=== PATIENT | female | born 1945 | race Caucasian/White ===

== ENCOUNTER 2020-08-21 15:23 | Outpatient (REF) | payer MEDICARE, OTHER, SELFPAY ==
--- NOTE | 2020-08-21 15:36 | US_ITS ---
EXAMINATION: US VENOUS ULTRASOUND WITH DOPPLER LOWER EXTREMITY, RIGHT CLINICAL INFORMATION: Pain right lower extremity near medial knee. Assess for occult DVT. COMPARISON: None TECHNIQUE: Ultrasound of the deep veins is performed from the hip to the calf with compression sonography and color and pulse Doppler assessment. Spectral analysis with color-flow imaging is performed. FINDINGS: There is no deep venous thrombosis. There is normal venous compression and respiratory variation and augmented flow involving the deep veins. The visualized common femoral vein, superficial femoral vein, profunda femoral vein, popliteal vein, and visualized mid calf peroneal and posterior tibial venous segments show no evidence of deep venous thrombosis. There are thrombosed varicose veins with no compressibility or color flow at site of patient's pain medial knee consistent with superficial thrombophlebitis. No visible popliteal fossa cyst. IMPRESSION: 1. Superficial thrombophlebitis involving varicose veins at level medial right knee. 2. No DVT demonstrated in the right lower extremity.
== END 2020-08-21 15:24 | disposition home or self-care (01) ==
LOC: HO.HMGCX 15:23
PROVIDERS: PCP Internal Medicine; Visit Provider Internal Medicine
DX: M79.89 Other specified soft tissue disorders (principal); M79.604 Pain in right leg; I80.01 Phlebitis and thrombophlebitis of superficial vessels of right lower extremity
CPT/HCPCS: 93971

== ENCOUNTER 2020-12-21 07:53 | Outpatient (REF) | payer MEDICARE, OTHER, SELFPAY ==
[2020-12-21 12:38] LABS: Alanine Aminotransferase 12 U/L (0-31); Albumin Level 3.7 g/dL (3.5-5.0); Alkaline Phosphatase 76 U/L (39-117); Anion Gap 10 (12-20); Aspartate Amino Transferase 17 U/L (5-31); Bilirubin Total 0.3 mg/dL (0.0-1.0); Blood Urea Nitrogen 28 mg/dL (9-16); Calcium 8.4 mg/dL (8.4-10.2); Carbon Dioxide 26 mmol/L (22-29); Chloride 106 mmol/L (96-108); Estimated Glomerular Filt Rate 43; Glucose Fasting 78 mg/dL (60-99); Iron 31 mcg/dL (30-160); Percent Iron Saturation 10 % (15-50); Potassium 5.2 mmol/L (3.3-5.1); Sodium 137 mmol/L (135-145); Total Iron Binding Capacity 323 mcg/dL (228-428); Total Protein 6.5 g/dL (6.5-8.0); Unsaturated Iron Binding 292 ug/dL
== END 2020-12-21 07:54 | disposition home or self-care (01) ==
LOC: HO.HMGCLDS 07:53
PROVIDERS: PCP Internal Medicine; Visit Provider Internal Medicine
DX: I12.9 Hypertensive chronic kidney disease with stage 1 through stage 4 chronic kidney disease, or unspecified chronic kidney disease (principal); N18.30 Chronic kidney disease, stage 3 unspecified; M81.0 Age-related osteoporosis without current pathological fracture; E78.5 Hyperlipidemia, unspecified; D64.9 Anemia, unspecified
CPT/HCPCS: 36415; 80053; 83540

== ENCOUNTER 2021-04-29 07:29 | Outpatient (REF) | payer MEDICARE, OTHER, SELFPAY ==
[2021-04-29 11:18] LABS: MANUAL DIFF FLAG NO
[2021-04-29 11:26] LABS: Basophils Absolute Auto 0.1 X10*3/uL (0.0-0.2); Basophils Percent Auto 0.9 % (0-2); Eosinophils Absolute Auto 0.5 X10*3/uL (0.0-0.4); Eosinophils Percent Auto 6.3 % (0-4); Hematocrit 35.2 % (37-47); Hemoglobin 10.5 g/dl (12.0-16.0); Imm Gran Abs Auto 0.03 X10*3/uL (0.00-0.03); Imm Gran Pct Auto 0.4 % (0.0-0.4); Lymphocytes Percent Auto 13.6 % (20-40); Mean Corpuscular HGB Conc 29.8 g/dl (31.0-35.0); Mean Corpuscular Hemoglobin 25.9 pg (27.0-33.0); Mean Corpuscular Volume 86.9 fL (80-98); Mean Platelet Volume 9.6 fL (9.4-12.3); Monocytes Absolute Auto 0.7 X10*3/uL (0.1-1.2); Monocytes Percent Auto 8.9 % (2-11); Neutrophils Absolute Auto 5.2 X10*3/uL (2.0-8.3); Neutrophils Percent Auto 69.9 % (45-73); Platelet Count 177 X10*3/uL (160-400); Red Blood Count 4.05 X10*6/uL (4.20-5.50); Red Cell Distribution Width 16.6 % (11.0-16.0); White Blood Count 7.4 X10*3/uL (4.8-10.8)
[2021-04-29 12:02] LABS: Vitamin D 25-OH Total 29.2 ng/mL (>30)
[2021-04-29 12:04] LABS: Alanine Aminotransferase 11 U/L (0-31); Albumin Level 3.9 g/dL (3.5-5.0); Alkaline Phosphatase 52 U/L (39-117); Anion Gap 13 (12-20); Aspartate Amino Transferase 16 U/L (5-31); Bilirubin Total 0.6 mg/dL (0.0-1.0); Blood Urea Nitrogen 45 mg/dL (9-16); Calcium 8.6 mg/dL (8.4-10.2); Carbon Dioxide 25 mmol/L (22-29); Chloride 108 mmol/L (96-108); Cholesterol 129 mg/dL; Estimated Glomerular Filt Rate 35; Glucose Fasting 74 mg/dL (60-99); HDL Cholesterol 52 mg/dL; Iron 51 mcg/dL (30-160); LDL Cholesterol Calculated 51 mg/dl; Magnesium 1.9 mg/dL (1.6-2.6); Percent Iron Saturation 14 % (15-50); Potassium 5.3 mmol/L (3.3-5.1); Sodium 141 mmol/L (135-145); Total Iron Binding Capacity 373 mcg/dL (228-428); Total Protein 6.6 g/dL (6.5-8.0); Triglycerides 133 mg/dL; Unsaturated Iron Binding 322 ug/dL
== END 2021-04-29 07:30 | disposition home or self-care (01) ==
LOC: HO.HMGCLDS 07:29
PROVIDERS: PCP Internal Medicine; Visit Provider Internal Medicine
DX: I12.9 Hypertensive chronic kidney disease with stage 1 through stage 4 chronic kidney disease, or unspecified chronic kidney disease (principal); N18.30 Chronic kidney disease, stage 3 unspecified; D64.9 Anemia, unspecified; E55.9 Vitamin D deficiency, unspecified; E78.5 Hyperlipidemia, unspecified; M81.0 Age-related osteoporosis without current pathological fracture; R63.4 Abnormal weight loss
CPT/HCPCS: 36415; 80053; 80061; 82306; 83540; 83735; 84443; 85025

== ENCOUNTER 2021-05-07 11:34 | Outpatient (REF) | payer MEDICARE, OTHER, SELFPAY ==
[2021-05-07 14:40] LABS: Anion Gap 14 (12-20); Carbon Dioxide 25 mmol/L (22-29); Chloride 104 mmol/L (96-108); Sodium 138 mmol/L (135-145)
== END 2021-05-07 11:35 | disposition home or self-care (01) ==
LOC: HO.HMGCLDS 11:34
PROVIDERS: Nurse Practitioner Family; PCP Internal Medicine; Visit Provider Internal Medicine
DX: E87.5 Hyperkalemia (principal)
CPT/HCPCS: 36415; 80051

== ENCOUNTER 2021-08-12 12:28 | Outpatient (REF) | payer MEDICARE, OTHER, SELFPAY ==
[2021-08-12 14:37] LABS: Anion Gap 14 (12-20); Blood Urea Nitrogen 25 mg/dL (9-16); Calcium 9.2 mg/dL (8.4-10.2); Carbon Dioxide 22 mmol/L (22-29); Chloride 108 mmol/L (96-108); Estimated Glomerular Filt Rate 44; Glucose Random 92 mg/dL (60-115); Potassium 5.1 mmol/L (3.3-5.1); Sodium 139 mmol/L (135-145)
== END 2021-08-12 12:29 | disposition home or self-care (01) ==
LOC: HO.HMGCLDS 12:28
PROVIDERS: PCP Internal Medicine; Visit Provider Internal Medicine
DX: E87.5 Hyperkalemia (principal); I10 Essential (primary) hypertension
CPT/HCPCS: 36415; 80048

== ENCOUNTER 2022-07-04 09:14 | Outpatient (REF) | payer MEDICARE, SELFPAY ==
[2022-07-04 11:19] LABS: MANUAL DIFF FLAG NO
[2022-07-04 11:33] LABS: Basophils Absolute Auto 0.1 X10*3/uL (0.0-0.2); Basophils Percent Auto 0.9 % (0-2); Eosinophils Absolute Auto 0.3 X10*3/uL (0.0-0.4); Eosinophils Percent Auto 4.3 % (0-4); Hematocrit 35.2 % (37.0-47.0); Hemoglobin 10.7 g/dl (12.0-16.0); Imm Gran Abs Auto 0.04 X10*3/uL (0.00-0.03); Imm Gran Pct Auto 0.5 % (0.0-0.4); Lymphocytes Absolute Auto 1.5 X10*3/uL (1.2-4.9); Lymphocytes Percent Auto 18.9 % (20-40); Mean Corpuscular HGB Conc 30.4 g/dl (31.0-35.0); Mean Corpuscular Hemoglobin 25.9 pg (27.0-33.0); Mean Corpuscular Volume 85.2 fL (80.0-98.0); Mean Platelet Volume 9.2 fL (9.4-12.3); Monocytes Absolute Auto 0.6 X10*3/uL (0.1-1.2); Monocytes Percent Auto 8.2 % (2-11); Neutrophils Absolute Auto 5.3 x10*3/uL (2.0-8.3); Neutrophils Percent Auto 67.2 % (45-73); Platelet Count 245 X10*3/uL (160-400); Red Blood Count 4.13 X10*6/uL (4.20-5.50); White Blood Count 7.8 X10*3/uL (4.8-10.8)
[2022-07-04 11:51] LABS: Alanine Aminotransferase 21 U/L (0-31); Albumin Level 3.9 g/dL (3.5-5.0); Alkaline Phosphatase 81 U/L (39-117); Anion Gap 14 (12-20); Aspartate Amino Transferase 21 U/L (5-31); Bilirubin Total 0.3 mg/dL (0.0-1.0); Blood Urea Nitrogen 30 mg/dL (9-16); Calcium 9.3 mg/dL (8.4-10.2); Carbon Dioxide 22 mmol/L (22-29); Chloride 109 mmol/L (96-108); Cholesterol 142 mg/dL; Estimated Glomerular Filt Rate 49; Glucose Fasting 85 mg/dL (60-99); HDL Cholesterol 56 mg/dL; Iron 32 mcg/dL (30-160); LDL Cholesterol Calculated 57 mg/dl; Percent Iron Saturation 7 % (15-50); Potassium 5.2 mmol/L (3.3-5.1); Sodium 140 mmol/L (135-145); Total Iron Binding Capacity 429 mcg/dL (228-428); Total Protein 6.9 g/dL (6.5-8.0); Triglycerides 147 mg/dL; Unsaturated Iron Binding 397 ug/dL
[2022-07-04 12:13] LABS: Vitamin D 25-OH Total 39.9 ng/mL (>30)
== END 2022-07-04 09:15 | disposition home or self-care (01) ==
LOC: HO.HMGCLDS 09:14
PROVIDERS: PCP Internal Medicine; Visit Provider Internal Medicine
DX: E55.9 Vitamin D deficiency, unspecified (principal); E78.5 Hyperlipidemia, unspecified; I10 Essential (primary) hypertension; M81.0 Age-related osteoporosis without current pathological fracture; D64.9 Anemia, unspecified
CPT/HCPCS: 36415; 80053; 80061; 82306; 83540; 85025

== ENCOUNTER → 2022-08-12 12:38 | Outpatient (REF) | payer MEDICARE, OTHER, SELFPAY ==
--- NOTE | 2022-08-12 12:42 | CA_ITS ---
Transthoracic Echocardiogram Patient (Last, First, Middle): Kandis Higgins A Gender: Female Date of : 1945 Age: 78 Procedure Date: 08/04/2023 Procedure Type: Transthoracic Echocardiogram Location[place] [facility] [place] Height: 160.02 cm Weight: 67.59 kg BSA: 1.71 m2 Heart Rate: 93 bpm BP: 171 / 73 mmHg Caddie Supervisor: CHERIE Referring MD: Sally Villagomez MD Symptoms: R06.09 - Other forms of dyspnea Study Quality: Adequate ECG Rhythm: Atrial Fibrillation Conclusions: - Normal left ventricular size and systolic function. There is mildly increased left ventricular wall thickness. The visually estimated ejection fraction is between 55-60%. - E/E prime ratio is >15, consistent with elevated filling pressures. - Normal right ventricular cavity size and systolic function. - There is mild anterior mitral leaflet thickening. - Normal right atrial pressure. Mild pulmonary hypertension is present. Findings Left Ventricle Normal left ventricular size and systolic function. There is mildly increased left ventricular wall thickness. The visually estimated ejection fraction is between 55-60%. There is no evidence of regional wall motion abnormalities. Abnormal diastolic function is noted. Spectral Doppler is indicative of an impaired relaxation filling pattern. E/E prime ratio is >15, consistent with elevated filling pressures. Right Ventricle Normal right ventricular cavity size and systolic function. Atria The left atrium is mildly dilated. The right atrium is normal in size. Aortic Valve There is a normal trileaflet aortic valve. There is no aortic valve stenosis. There is no aortic valve regurgitation. Mitral Valve There is mild anterior mitral leaflet thickening. There is no mitral valve regurgitation. There is no mitral valve stenosis. Pulmonic Valve Normal pulmonic valve structure and function. There is no pulmonic valve regurgitation. Tricuspid Valve Normal tricuspid valve structure. There is trace tricuspid valve regurgitation. The right ventricular systolic pressure is 36 mmHg. Normal right atrial pressure. Mild pulmonary hypertension is present. Great Vessels All visible segments of the aorta are normal in size. The visualized portions of the pulmonary artery and branches are normal. Venous The inferior vena cava is normal in size and collapses greater than 50% with inspiration. Pericardium/Pleural There is no evidence of pericardial effusion. Prior Study Comparison No significant change compared to prior study dated: 08/12/2022. Measurements 2D Linear Measurements IVSd: 1.11 0.6-0.9/0.6-1.0 cm LVIDd: 4.37 3.9-5.3/4.2-5.9 cm LVIDd Index: 2.56 2.4-3.2/2.2-3.1 cm/m2 LVIDs: 2.82 2.0-3.6 cm LVPWd: 1.29 0.7-1.1 cm LA Diam: 4.20 2.7-3.8/3.0-4.0 cm LAIDs Index: 2.46 1.5-2.3 cm/m2 LV Mass: 235.91 67-162/88-224 g LV Mass Index: 137.96 43-95/49-115 g/m2 LVOT Diam: 2.00 3.0+(-)1.3 cm 2D Systolic Function EF 4C: 57.70 >55% EF 2C: 65.30 >55% EF BiP: 62.30 >55% Mitral Valve MV Pk E: 1.38 MV PK A: 1.29 MV Decel Time: 188.00 E/A: 1.10 E'Lateral: 7.51 E'Medial: 6.74 E/E' Med: 20.50 E/E' Lat: 18.40 PHT: 55.00 MVA PHT: 4.00 Decel Dawson: 7.32 Aortic Valve AoV Pk Tucker: 1.37 AoV Mn Tucker: 1.01 AoV VTI: 0.22 AoV Pk Grad: 8.00 Aov Mn Grad: 5.00 CHIN Cont.VTI: 2.76 LVOT LVOT Pk Tucker: 1.03 LVOT Mn Tucker: 0.76 LVOT VTI: 0.19 LVOT Pk Grad: 4.00 LVOT Mn Grad: 3.00 LVOT Diam: 2.00 LVOT Area: 3.14 Diastolic Function MV Pk E: 1.38 MV Pk A: 1.29 E/A: 1.10 E'Medial: 6.74 E/E' Med: 20.50 E' Laterial: 7.51 E/E' Lat: 18.40 Right Ventricle TAPSE (mm): 27.30 TVS' Tucker: 17.50 Tricuspid Valve TR Pk Tucker: 2.87 TR Pk Grad: 33.00 RA Press: 3.00 RVSP: 36.00 Great Vessels Aorta Sinus of Valsalva: 3.30 2.0-3.5 cm Ao Asc: 3.30 2.1-3.4 cm Pulmonary Valve PV Pk Tucker: 1.07 Peak PV Grad: 5.00 Updated in Other Vendor System with Status of Final Tanner Dodge MD electronically signed on 08/05/2023 12:23:10 PM with status of Final
== END ==
LOC: HO.CARD 12:38
PROVIDERS: Visit Provider Internal Medicine
DX: R06.09 Other forms of dyspnea (principal)
CPT/HCPCS: 93306

== ENCOUNTER 2023-02-02 09:14 | Outpatient (REF) | payer MEDICARE, OTHER, SELFPAY ==
[2023-02-02 11:17] LABS: MANUAL DIFF FLAG NO
[2023-02-02 11:22] LABS: Basophils Absolute Auto 0.1 X10*3/uL (0.0-0.2); Eosinophils Absolute Auto 0.3 X10*3/uL (0.0-0.4); Eosinophils Percent Auto 3.5 % (0-4); Hematocrit 35.6 % (37.0-47.0); Hemoglobin 10.8 g/dl (12.0-16.0); Imm Gran Abs Auto 0.04 X10*3/uL (0.00-0.03); Imm Gran Pct Auto 0.5 % (0.0-0.4); Lymphocytes Absolute Auto 1.8 X10*3/uL (1.2-4.9); Lymphocytes Percent Auto 22.1 % (20-40); Mean Corpuscular HGB Conc 30.3 g/dl (31.0-35.0); Mean Corpuscular Hemoglobin 26.2 pg (27.0-33.0); Mean Corpuscular Volume 86.4 fL (80.0-98.0); Mean Platelet Volume 9.8 fL (9.4-12.3); Monocytes Absolute Auto 0.8 X10*3/uL (0.1-1.2); Monocytes Percent Auto 9.4 % (2-11); Neutrophils Absolute Auto 5.1 x10*3/uL (2.0-8.3); Neutrophils Percent Auto 63.5 % (45-73); Platelet Count 174 X10*3/uL (160-400); Red Blood Count 4.12 X10*6/uL (4.20-5.50); Red Cell Distribution Width 15.6 % (11.0-16.0); White Blood Count 8.1 X10*3/uL (4.8-10.8)
[2023-02-02 12:00] LABS: Alanine Aminotransferase 18 U/L (0-31); Albumin Level 3.8 g/dL (3.5-5.0); Alkaline Phosphatase 67 U/L (39-117); Anion Gap 13 (12-20); Aspartate Amino Transferase 24 U/L (5-31); Bilirubin Total 0.4 mg/dL (0.0-1.0); Blood Urea Nitrogen 36 mg/dL (9-16); Calcium 9.7 mg/dL (8.4-10.2); Carbon Dioxide 24 mmol/L (22-29); Chloride 107 mmol/L (96-108); Estimated Glomerular Filt Rate 36; Glucose Fasting 87 mg/dL (60-99); Potassium 4.8 mmol/L (3.3-5.1); Sodium 139 mmol/L (135-145); Total Protein 6.5 g/dL (6.5-8.0)
[2023-02-02 12:01] LABS: TSH reflex Free T4 1.96 uIU/mL (0.32-4.0)
== END 2023-02-02 09:15 | disposition home or self-care (01) ==
LOC: HO.HMGCLDS 09:14
PROVIDERS: PCP Internal Medicine; Visit Provider Internal Medicine
DX: I12.9 Hypertensive chronic kidney disease with stage 1 through stage 4 chronic kidney disease, or unspecified chronic kidney disease (principal); N18.30 Chronic kidney disease, stage 3 unspecified
CPT/HCPCS: 36415; 80053; 84443; 85025

== ENCOUNTER → 2023-04-24 15:00 | Outpatient (BNVA) | payer MEDICARE, OTHER, SELFPAY | PROVIDERS: PCP Internal Medicine; Visit Provider Internal Medicine | DX: R13.10 Dysphagia, unspecified (principal); R15.9 Full incontinence of feces; M62.89 Other specified disorders of muscle | CPT/HCPCS: 99202 ==

== ENCOUNTER 2023-07-03 11:24 | Outpatient (AMB) | payer MEDICARE, SELFPAY ==
[2023-07-03 11:29] VITALS: BP 118/70; PULSE 61; O2SAT 97; BMI 23.3
--- NOTE | 2023-07-03 11:29 | A.OFFVIS_ITS ---
Intake Vital Signs 07/03/23 11:29 Height 5 ft 4 in Weight 136 lb BMI 23.3 BP 118/70 Blood Pressure Location Lt brachial Position Sitting Pulse 61 Pulse Source Pulse Oximeter Pulse Oximetry (%) 97 Oxygen Delivery Method Room Air Intake Visit Reasons: SWV [id number] Allergies No Known Allergies [No Known Allergies*] Allergy (Verified 07/03/23 11:52) Medication List - Last Reconciled 07/03/23 by Sally Villagomez MD albuterol sulfate 90 mcg/actuation 2 puffs inhalation Q6H PRN amlodipine 10 mg PO DAILY atorvastatin 80 mg PO BEDTIME bisoprolol fumarate 5 mg PO DAILY buprenorphine 15 mcg/hour 1 patch topical QWEEK citalopram 30 mg (1.5 x 20 mg) PO DAILY clopidogrel 75 mg PO DAILY diphenoxylate-atropine 2.5-0.025 mg 1 tab PO Q6H PRN etanercept mg subcut QWEEK gabapentin mg PO Q8H hyoscyamine sulfate ER 0.375 mg PO Q12H ketoconazole 2% 1 appl topical DAILY lisinopril 10 mg PO DAILY omeprazole 20 mg PO DAILY tramadol 50 mg PO BID PRN zolpidem 5 mg PO BEDTIME HPI SWV G0439 HPI Details Pt presents for annual Initiated the conversation about Advanced Directives. Advanced Directives help? patients prepare for current and future decisions about their medical treatment? and place of care. Discussed with patient that it is a process where a patients? current condition and prognosis are reviewed, their wishes for information? regarding their illness are elicited, and likely medical dilemmas are presented? and options discussed. The form can be amended as needed, reviewed yearly and? make changes as needed IPPE/AWV ? year old presents? for her ? Annual? Wellness Visit, initial visit.? Medical / Social History Reviewed? Past Medical History ?Yes? . ? [place]? of Care / Care Team list updated ?Yes . ? Surgical/Hospitalization? History ?Yes . ? Current Medications? (including OTC and supplements) ?Yes . ? Family History ?Yes? . ? Tobacco? Control form ?Yes . ? AUDIT-C (Alcohol use) form? ?Yes . ? Illicit drug use in Social? History ?Yes . ? Current diagnosis of? depression? ?No ? Appropriate PHQ2/PHQ9? completed ?Yes . ? Data entered by ?Medical? Logging Specialist and reviewed by provider ? Fall Risk ? Fall? History? Have you had any falls with? injury in the past year? ?No . ? Have you had two or more? falls in the past year? ?No . ? Fall Risk Assessment: ?No? falls in the past year . ? HRA filled out by? the patient, reviewed by Provider and scanned. ? IPPE/AWV ? Balance? Romberg? ?Yes . ? Tandem? walk ?Yes . ? Walk and? Turn ?Yes . ? Rise from? sit to stand ?Yes . ?Vision? Corrective? lens ?Yes ? Vision? screen ? Up-to-date, has an appointment [] for vision? screening and glaucoma screening ?Hearing? Whisper? test ?pass .? Initiated the conversation about Advanced Directives. Advanced Directives help? patients prepare for current and future decisions about their medical treatment? and place of care. Discussed with patient that it is a process where a patients? current condition and prognosis are reviewed, their wishes for information? regarding their illness are elicited, and likely medical dilemmas are presented? and options discussed. The form can be amended as needed, reviewed yearly and? make changes as needed Written? Plan?Completed. See Patient? Documents. FORMERLY [facility], [facility] Medical History Anemia Annual physical exam Carotid stenosis, right CKD (chronic kidney disease) stage 3, GFR 30-59 ml/min Compression fracture COPD (chronic obstructive pulmonary disease) Depression History of IBS HTN (hypertension) Hyperlipidemia Lumbar stenosis Obstructive sleep apnea Osteoporosis Spondyloarthropathy Status post CVA Venous insufficiency of both lower extremities Vertigo Vitamin D deficiency Weight loss Surgical History H/O colonoscopy History of abdominal surgery History of esophagogastroduodenoscopy (EGD) History of hysterectomy History of oophorectomy History of shoulder surgery Hx of cholecystectomy Family History Father No problems noted. Mother Colon cancer Sister Metastatic cancer Social History Housing: House Alcohol intake: current Alcohol intake frequency: holidays/special occasions only Patient Tobacco Use Status: Never used Tobacco e-Cigarette/Vaping Use: Never Used Current occupational status: retired Cognitive needs: No Hearing needs: No Vision needs: No Questionnaire Medicare Wellness Checkup [age] What gender do you identify with?: female During the past 4 weeks, how much have you been bothered by emotional problems such as feeling anxious, depressed, irritable, sad or downhearted, and blue?: not at all During the past 4 weeks, has your physical & emotional health limited your social activities with family, friends, neighbors, or groups?: not at all During the past 4 weeks, how much bodily pain have you generally had?: moderate pain During the past 4 weeks, was someone available to help you if you needed & wanted help?: yes, as much as I wanted During the past 4 weeks, what was the hardest physical activity you could do for at least 2 minutes?: moderate Can you get to places out of walking distance without help? (For eg., can you travel alone on buses, taxis or drive your car?): Yes Can you go shopping for groceries or clothes without someone's help?: Yes Can you prepare your own meals?: Yes Can you do your housework without help?: No Because of any health problems, do you need the help of another person with your personal care needs such as eating, bathing, dressing or getting around the house?: No Can you handle your own money without help?: Yes During the past 4 weeks, how would you rate your health in general?: good During the past 4 weeks how have things been going for you?: pretty well Are you having difficulties driving your car?: no Do you always fasten your seat belt when you are in a car?: yes, usually During past 4 weeks, have you been bothered by the following: never: Sexual problems?, Trouble eating well?, Teeth or denture problems? and Problems using the telephone?, seldom: Falling or dizzy when standing up and sometimes: Tiredness or fatigue? Have you fallen 2 or more times in the past year?: No Are you afraid of falling?: Yes Are you a smoker?: no During the past 4 weeks, how many drinks of wine, beer, or other alcoholic beverages did you have?: 1 drink or less per week Do you exercise for about 20 minutes 3 or more times a week?: no, I usually do not exercise this much Have you been given information to help with the following?: no: Hazards in your house that might hurt you? and no: Keeping track of your medications? How often do you have trouble taking medicines the way you have been told to take them?: I always take medicine as prescribed How confident are you that you can control & manage most of your health problems?: very confident What is your race?: White Mini Mental State Exam (MMSE) Orientation What is the (year) (season) (date) (day) (month)?: year, season, date, day and month Where are we (state) (county) (town or city) (hospital) (floor)?: state, county, town or city, hospital/clinic and floor Registration Name of 3 unrelated objects clearly and slowly, then ask patient to repeat all 3 of them. (1st repeat determines score. Make sure they can repeat all three): object 1, object 2 and object 3 Attention & Calculation (CHOOSE ONE) Ask pt to begin with 100 & count backward by 7. Stop after 5 repeats. If pt cannot ask them to spell the word WORLD backward.: 93 Recall Ask patient to repeat the 3 items from question #3.: object 1, object 2 and object 3 Language Show patient a wristwatch & ask what it is. Repeat for pencil.: watch and pencil Ask the patient to repeat the phrase 'No ifs, ands, or buts' after you.: correct Ask the patient to 'take a piece of paper with their right hand' 'fold paper in half' 'place paper on floor': take paper in right hand, fold paper in half and place paper on floor Print the sentence 'CLOSE YOUR EYES' on a piece. If patient actually closes eyes then score.: followed written direction Give patient a blank piece of paper & ask to write a sentence. Score if it contains a noun & verb.: sentence contains subject and verb Ask patient to copy figure of intersecting pentagons exactly. Score if all 10 angles & 2 intersects are included.: all 10 angles present & 2 are intersected Score Score: 26 Activity of Daily Living Bathing - sponge bath, tub bath or shower: receives no assistance (gets in/out by self, if usual bathing means Dressing - getting clothes from closets & drawers, including inner/outer garments & fasteners.: gets clothes & gets completely dressed without help Toileting - going to the 'toilet room' for urine/bowel elimination & cleaning self/arranging clothes: goes to toilet room, cleans self, arranges clothes without help Transfer: moves in & out of bed and chair without help (may use support object) Continence: controls urination/bowel movements completely by self Feeding: feeds self without help Total Score: 0 Information obtained from: patient Using telephone: independent Traveling: independent Shopping: independent Preparing meals: independent Housework: needs assistance Taking medicine: independent Managing money: independent PHQ-9 Over the last 2 weeks, how often have you been bothered by any of the following problems? 1. Little interest or pleasure in doing things: several days 2. Feeling down, depressed, or hopeless: not at all 3. Trouble falling or staying asleep, or sleeping too much: nearly every day 4. Feeling tired or having little energy: not at all 5. Poor appetite or overeating: not at all 6. Feeling bad about yourself - or that you are a failure or have let yourself or your family down: not at all 7. Trouble concentrating on things, such as reading the newspaper or watching television: not at all 8. Moving or speaking so slowly that other people could have noticed. Or the opposite - being so fidgety or restless that you have been moving around a lot more than usual: not at all 9. Thoughts that you would be better off or of hurting yourself in some way: not at all Total score: 4 Depression Screening Interpretation: Negative Source: Developed by Drs. Enio Baltazar, Keely Turpin, Zach Anders and colleagues, with an educational zenia from [employer]. Review of Systems Const All systems reviewed & are unremarkable except as noted in HPI and below Reports no additional complaints Eyes Reports no additional complaints ENT Reports no additional complaints Card Reports no additional complaints Resp Reports no additional complaints GI Reports no additional complaints Reports no additional complaints Physical Exam Vital Signs: Last Vital Signs Pulse 61 07/03/23 11:29 BP 118/70 07/03/23 11:29 Pulse Ox 97 07/03/23 11:29 Oxygen Delivery Method Room Air 07/03/23 11:29 BMI result Body Mass Index 23.3 Const General: no acute distress HEENT Head: Yes normal to inspection Ears: hearing grossly normal bilaterally Face and sinus: Yes normal facial exam Mouth: Normal oral and palatal mucosa present Throat: Yes posterior oropharynx normal Eyes General: appearance normal, both eyes and all related structures Neck Neck: Yes no lymphadenopathy and Yes supple Resp Effort & Inspection: normal respiratory effort Auscultation: clear to auscultation bilaterally Cardio Rhythm: regular rhythm Heart sounds: S1 normal heart sound present and S2 normal heart sound present GI Inspection: Yes normal to inspection Palpation (GI): Soft to palpation Percussion: Yes normal to percussion Auscultation: normal bowel sounds Extrem General: Yes normal to inspection Assessment & Plan Assessment & Plan (1) Annual physical exam: Code(s): Z00.00 - Encounter for general adult medical examination without abnormal findings Plan: Well-balanced diet regular physical activity discussed with the patient (2) Hyperlipidemia: Code(s): E78.5 - Hyperlipidemia, unspecified Plan: Continue statin (3) HTN (hypertension): Code(s): I10 - Essential (primary) hypertension Plan: Continue current medications (4) CKD (chronic kidney disease) stage 3, GFR 30-59 ml/min: Comment: follow-up Dr. Eduardo Code(s): N18.30 - Chronic kidney disease, stage 3 unspecified Plan: Avoid NSAIDs follow-up with nephrology (5) Anemia: Code(s): D64.9 - Anemia, unspecified (6) Irritable bowel syndrome with diarrhea: Code(s): K58.0 - Irritable bowel syndrome with diarrhea Plan: Try hyoscyamine Orders: Orders Comprehensive [place]. Panel Fast Today E78.5 - Hyperlipidemia, unspecified, I10 - Essential (primary) hypertension, N18.30 - Chronic kidney disease, stage 3 unspecified, Z00.00 - Encounter for general adult medical examination without abnormal findings Lipid Panel Today E78.5 - Hyperlipidemia, unspecified, I10 - Essential (primary) hypertension, N18.30 - Chronic kidney disease, stage 3 unspecified, Z00.00 - Encounter for general adult medical examination without abnormal findings Complete Blood Count Auto Diff Today E78.5 - Hyperlipidemia, unspecified, I10 - Essential (primary) hypertension, N18.30 - Chronic kidney disease, stage 3 unspecified, Z00.00 - Encounter for general adult medical examination without abnormal findings TSH reflex Free T4 Today E78.5 - Hyperlipidemia, unspecified, I10 - Essential (primary) hypertension, N18.30 - Chronic kidney disease, stage 3 unspecified, Z00.00 - Encounter for general adult medical examination without abnormal findings Vitamin B12 and Folate Today E78.5 - Hyperlipidemia, unspecified, I10 - Essential (primary) hypertension, N18.30 - Chronic kidney disease, stage 3 unspecified, Z00.00 - Encounter for general adult medical examination without abnormal findings IRON PROFILE Today D64.9 - Anemia, unspecified Medications: New hyoscyamine sulfate ER 0.375 mg PO Q12H 60 tabs 0RF Quality Reporting (2019) Depression/Bipolar (159/160/161/177) PHQ-9: Total score: 4 Coding Level of Care Code Medicare Subsequent (G0439) Diagnoses Annual physical exam Z00.00 Hyperlipidemia E78.5 HTN (hypertension) I10 CKD (chronic kidney disease) stage 3, GFR 30-59 ml/min N18.30 Anemia D64.9 Irritable bowel syndrome with diarrhea K58.0 CPT Codes Advance Care Planning - Time spent: 1-15 minutes, not on file ([id number]) Advance Care Planning Advance Care Planning discussion: Exists, not on file Forms completed: Health Care Proxy Time spent: 1-15 minutes, not on file
== END 2023-07-03 14:05 | disposition home or self-care (01) ==
PROVIDERS: PCP Internal Medicine; Visit Provider Internal Medicine
DX: Z00.00 Encounter for general adult medical examination without abnormal findings (principal); I12.9 Hypertensive chronic kidney disease with stage 1 through stage 4 chronic kidney disease, or unspecified chronic kidney disease; N18.30 Chronic kidney disease, stage 3 unspecified; K58.0 Irritable bowel syndrome with diarrhea; E78.5 Hyperlipidemia, unspecified; D64.9 Anemia, unspecified
CPT/HCPCS: 1124F; G0439

== ENCOUNTER 2023-07-03 12:40 | Outpatient (REF) | payer MEDICARE, OTHER, SELFPAY ==
[2023-07-03 16:54] LABS: MANUAL DIFF FLAG NO
[2023-07-03 17:08] LABS: Basophils Absolute Auto 0.1 X10*3/uL (0.0-0.2); Basophils Percent Auto 0.4 % (0-2); Eosinophils Absolute Auto 0.2 X10*3/uL (0.0-0.4); Eosinophils Percent Auto 1.6 % (0-4); Hematocrit 37.2 % (37.0-47.0); Hemoglobin 11.1 g/dl (12.0-16.0); Imm Gran Abs Auto 0.08 X10*3/uL (0.00-0.03); Imm Gran Pct Auto 0.6 % (0.0-0.4); Lymphocytes Absolute Auto 1.5 X10*3/uL (1.2-4.9); Lymphocytes Percent Auto 11.9 % (20-40); Mean Corpuscular HGB Conc 29.8 g/dl (31.0-35.0); Mean Corpuscular Hemoglobin 25.6 pg (27.0-33.0); Mean Corpuscular Volume 85.9 fL (80.0-98.0); Mean Platelet Volume 9.5 fL (9.4-12.3); Monocytes Absolute Auto 0.9 X10*3/uL (0.1-1.2); Monocytes Percent Auto 6.9 % (2-11); Neutrophils Absolute Auto 9.8 x10*3/uL (2.0-8.3); Neutrophils Percent Auto 78.6 % (45-73); Platelet Count 216 X10*3/uL (160-400); Red Blood Count 4.33 X10*6/uL (4.20-5.50); Red Cell Distribution Width 14.4 % (11.0-16.0); White Blood Count 12.5 X10*3/uL (4.8-10.8)
[2023-07-03 17:46] LABS: TSH reflex Free T4 0.81 uIU/mL (0.32-4.0)
[2023-07-03 17:53] LABS: Folate 10.5 ng/mL (> or = 4.0); Vitamin B12 464 pg/mL (200-900)
[2023-07-03 18:07] LABS: Alanine Aminotransferase 36 U/L (0-31); Alkaline Phosphatase 69 U/L (39-117); Anion Gap 11 (12-20); Aspartate Amino Transferase 28 U/L (5-31); Bilirubin Total 0.3 mg/dL (0.0-1.0); Blood Urea Nitrogen 34 mg/dL (9-16); Calcium 9.9 mg/dL (8.4-10.2); Carbon Dioxide 24 mmol/L (22-29); Chloride 110 mmol/L (96-108); Cholesterol 165 mg/dL (<200); Estimated Glomerular Filt Rate 53; Glucose Fasting 83 mg/dL (60-99); HDL Cholesterol 72 mg/dL (>40); Iron 39 mcg/dL (30-160); LDL Cholesterol Calculated 61 mg/dL (<100); Percent Iron Saturation 9 % (15-50); Sodium 139 mmol/L (135-145); Total Iron Binding Capacity 439 mcg/dL (228-428); Total Protein 7.2 g/dL (6.5-8.0); Triglycerides 163 mg/dL (<150); Unsaturated Iron Binding 400 ug/dL
== END 2023-07-03 12:41 | disposition home or self-care (01) ==
LOC: HO.HMGCLDS 12:40
PROVIDERS: PCP Internal Medicine; Visit Provider Internal Medicine
DX: Z00.00 Encounter for general adult medical examination without abnormal findings (principal); E78.5 Hyperlipidemia, unspecified; I12.9 Hypertensive chronic kidney disease with stage 1 through stage 4 chronic kidney disease, or unspecified chronic kidney disease; N18.30 Chronic kidney disease, stage 3 unspecified; D63.1 Anemia in chronic kidney disease
CPT/HCPCS: 36415; 80053; 80061; 82607; 82746; 83540; 84443; 85025

== ENCOUNTER 2023-07-07 10:59 | Outpatient (REF) | payer MEDICARE, OTHER, SELFPAY ==
[2023-07-07 15:48] LABS: Potassium 5.1 mmol/L (3.3-5.1)
== END 2023-07-07 11:00 | disposition home or self-care (01) ==
LOC: HO.HMGCLDS 10:59
PROVIDERS: PCP Internal Medicine; Visit Provider Internal Medicine
DX: E78.5 Hyperlipidemia, unspecified (principal)
CPT/HCPCS: 36415; 84132

== ENCOUNTER 2023-07-31 13:59 | Inpatient (IN) | payer MEDICARE, OTHER, SELFPAY ==
[2023-07-31] VITALS (13 sets, daily range): BP systolic 92–132; BP diastolic 33–82; PULSE 55–72; RESP 16–20; TEMP 36.4–36.8; O2SAT 81–96; BMI 24.8
--- NOTE | ~2023-07-31 | XR_ITS ---
EXAMINATION: XR CHEST CLINICAL INFORMATION: Shortness of breath COMPARISON: CT chest from 07/31/2023, chest radiograph from 07/31/2023 TECHNIQUE: Frontal view of the chest was obtained. FINDINGS: Bilateral low lung volumes. Emphysematous changes. Increasing radiopacities involving the bilateral lung bases, right greater than left may reflect evolving infectious/inflammatory etiology. Stable blunting of the costophrenic recesses. No pneumothorax. Trachea is midline. Cardiomediastinal silhouette is not enlarged. Aorta demonstrates atherosclerotic calcifications. No large pleural effusion. Degenerative changes of the thoracolumbar spine. Soft tissues are unremarkable. XR/XR chest 1V IMPRESSION: 1. Bilateral low lung volumes. 2. Emphysematous changes. 3. Increasing radiopacities involving the bilateral lung bases, right greater than left may reflect evolving infectious/inflammatory etiology. 4. Stable blunting of the costophrenic recesses.
--- NOTE | ~2023-07-31 | CT_ITS ---
EXAMINATION: CT HEAD WITHOUT CONTRAST CLINICAL INFORMATION: Syncope. Head strike. COMPARISON: None available. TECHNIQUE: Contiguous axial imaging was performed from the skull base to vertex without intravenous administration of contrast. This CT examination was performed using dose optimization techniques as appropriate, variously including the following: *Automated exposure control *Adjustment of mA and/or kV according to patient size (this includes techniques or standardized protocols for targeted exams where dose is matched to indication/reason for exam; i.e. extremities or head) *Use of iterative reconstruction technique DLP: 662 mGy-cm FINDINGS: There is no acute intra-axial, extra-axial bleed, masses or midline shift. There is no acute infarction evolution. There is no edema. The oconnor to white matter differentiation is maintained normal. The lateral ventricles are symmetrical in size and configuration but mildly enlarged with mild prominence of cortical sulci. There is a punctate vascular calcification in the right sylvian fissure. Bone windows reveal no calvarial abnormality. The scalp soft tissues are normal. Bilateral paranasal sinuses and mastoid air cells are well-aerated. CT/CT head/brain wo IV con IMPRESSION: 1. No acute intracranial process seen. 2. Mild cerebral volume loss. .
--- NOTE | ~2023-07-31 | NM_ITS ---
EXAMINATION: NM LUNG IMAGE PERFUSION CLINICAL INFORMATION: Hypoxia and elevated d-dimer. CT 80 and BENNETT. D-dimer 4 from 95 COMPARISON: None available. TECHNIQUE: Following intravenous administration of 3.7 mCi of 90 9M technetium MAA, imaging of both lungs were obtained multiple projections. FINDINGS: There is normal perfusion of all segments of both lungs without any focal defect. Ventilation study was not performed. NM/NM pul perfusion IMPRESSION: Normal lung perfusion study.
--- NOTE | ~2023-07-31 | XR_ITS ---
EXAMINATION: XR CHEST CLINICAL INFORMATION: Reason for Exam weakness/syncope COMPARISON: Chest radiograph 08/29/2019 TECHNIQUE: One view of the chest FINDINGS: Lines and tubes: EKG leads overlie the patient. Low lung volumes with streaky bibasilar opacities which may reflect atelectasis. Blunting of the costophrenic angles unchanged from 2019 and may reflect small pleural effusions or pleural parenchymal thickening. No pneumothorax. Unchanged cardiomediastinal silhouette. XR/XR chest 1V IMPRESSION: Low lung volumes with streaky bibasilar opacities which may reflect atelectasis. Blunting of the costophrenic angles unchanged from 2019 and may reflect small pleural effusions or pleural parenchymal thickening.
--- NOTE | ~2023-07-31 | XR_ITS ---
EXAMINATION: XR CHEST CLINICAL INFORMATION: Shortness of breath COMPARISON: Chest x-ray August 02, 2023 TECHNIQUE: Frontal view of the chest was obtained. FINDINGS: Cardiac silhouette is normal in size. Low lung volumes. There is prominence of the right central pulmonary vasculature again noted, likely accentuated due to low lung volumes. Similar subtle bibasilar opacities, slightly more prominent on the right. Blunting of both costophrenic angles is unchanged. No pneumothorax. XR/XR chest 1V IMPRESSION: Similar subtle bibasilar opacities, slightly more prominent on the right. Findings are nonspecific but may represent atelectasis in the setting of low lung volumes. Ultimately cannot exclude developing infiltrate.
--- NOTE | ~2023-07-31 | CT_ITS ---
Examination: CT chest, abdomen and pelvis without IV contrast. CLINICAL INDICATION: Diarrhea, BENNETT. Rule out obstructive etiology. Hypoxia. COMPARISON: Chest x-ray 07/31/2023. TECHNIQUE: 5 mm thin axial and reformatted 3 mm thin sagittal coronal images of chest, abdomen and pelvis were obtained without IV contrast. DLP 586. This CT examination was performed using dose optimization technique as appropriate, variously including the following: Automated exposure control Adjustment of MA and/or KV according to patient size(this includes techniques or standardized protocols for targeted exams where dose is matched to indication/reason for exam; extremities or head. Use of iterative reconstruction techniques. , FINDINGS: CHEST: LUNGS: There is diffuse centrilobular emphysema with minimal patchy opacity right lower lobe superior segment medially, posterior basal segment bilaterally slightly greater on the right than the left likely new new or resolving infiltrate/atelectasis. No large consolidation seen. Mediastinum: Central trachea and the bronchi widely patent. The thyroid lobes are symmetrical and normal. Heart size and the great vessels are normal caliber. No pericardial effusion seen. There is mild coronary artery calcifications. There is a small hiatal hernia. No abnormal size mediastinal or hilar lymph nodes seen. Pleura: There is mild bibasilar pleural reaction slightly greater on the right than left. No pleural effusion seen. Axilla: There is no abnormal axillary lymph nodes. There is a right breast retroareolar soft tissue density is asymmetric compared to left side. Osseous structures: There are old compression fractures involving T10 and T11 vertebra with cement augmentation. This results in exaggerated thoracic kyphosis in the lower dorsal spine. Rest of the visual thoracic spine appears unremarkable. Abdomen and pelvis: Liver, ducts and gallbladder: The liver is homogeneous in density, normal contour and size. No focal lesion or intrahepatic ductal dilatation. The gallbladder has been removed. Spleen: Unremarkable. Pancreas: Is small and atrophic. No focal lesion seen. Bilateral adrenal glands: Unremarkable. Kidneys, ureter and bladder: Both kidneys are symmetrical in size, shape and position. There is mild perinephric stranding. No radiopaque renal calculi or hydronephrosis seen. The ureters are symmetrical and nondilated. The bladder is nondistended. Lymphovascular structures: Abdominal aorta is normal caliber. No abnormal size retroperitoneal lymph nodes or mass seen. GI tract: There is moderate stool in the entire colon without distention. Mild colonic diverticulosis is noted. No evidence of radiculitis The ileocecal junction and terminal ileum appears unremarkable. Appendix is not visualized. There is no free air or free fluid seen.. Small hiatal hernia. Abdominal wall: Unremarkable. Pelvis: No free fluid. No pelvic mass. No evidence of hernia. Osseous structures: No abnormality seen in the lumbosacral spine. CT/CT abdomen pelvis wo IV con IMPRESSION: 1. Emphysema with minimal chronic bilateral lower lobe pneumonia or resolving infiltrates/atelectasis. There is no pleural effusion. 2. There is no acute process seen in the abdomen. 3. Moderate constipation without obstruction. Mild colonic diverticulosis 4. Small hiatal hernia. 5 Old compression fractures T10 and T11 vertebra with cement augmentation. There is exaggerated thoracic kyphosis in the lower dorsal spine
--- NOTE | 2023-07-31 14:12 | ED.GENADULT ---
HPI - General Adult General Chief complaint: Fall Stated complaint: DEHYDRATION DIARRHEA WEAKNESS Time Seen by Provider: 07/31/23 14:06 Source: patient, family, EMS, RN notes reviewed and old records reviewed Mode of arrival: EMS History of Present Illness HPI narrative: 78-year-old female with a past medical history of vitamin-D deficiency, anemia, osteoporosis, CKD, HLD, depression, COPD, HTN, CVA on Plavix, presenting to the ED via EMS complaining watery nonbloody diarrhea, generalized fatigue/ weakness, lightheadedness, and decreased p.o. intake x3-4 days. Patient reports fall in bathroom on Monday night, denies head trauma or LOC. Son also reports syncopal episode yesterday, patient was caught/lowered to ground, no incontinence or tongue biting, and had presyncopal episode today. Denies headache, new neck/back pain, CP/SOB, abdominal pain, dysuria / hematuria, melena, brbpr, recent travel/suspicious food intake, cough Onset (ago): day(s) Related Data Home Medications Medication Instructions Recorded Confirmed etanercept 50 mg/mL (1 mL) mg subcut QWEEK 08/21/20 07/03/23 subcutaneous pen injector lisinopril 10 mg tablet 10 mg PO DAILY 08/21/20 07/03/23 amlodipine 10 mg tablet 10 mg PO DAILY 01/06/21 07/03/23 gabapentin 300 mg capsule mg PO Q8H 06/30/22 07/03/23 buprenorphine 15 mcg/hour weekly 1 patch topical QWEEK 02/01/23 07/03/23 transdermal patch tramadol 50 mg tablet 50 mg PO BID PRN 04/24/23 07/03/23 Previous Rx's Medication Instructions Recorded zolpidem 5 mg tablet 5 mg PO BEDTIME #30 tabs 03/11/22 albuterol sulfate 90 mcg/actuation 2 puff inhalation Q6H PRN 06/30/22 aerosol inhaler shortness of breath or wheezing #8.5 grams ketoconazole 2 % topical cream 1 appl topical DAILY #60 grams 07/20/22 bisoprolol fumarate 5 mg tablet 5 mg PO DAILY #90 tabs 01/13/23 atorvastatin 80 mg tablet 80 mg PO BEDTIME #90 tabs 04/18/23 omeprazole 20 mg capsule,delayed 20 mg PO DAILY #90 caps 05/01/23 release clopidogrel 75 mg tablet 75 mg PO DAILY #90 tabs 05/09/23 sodium polystyrene sulfonate 15 g PO DAILY 1 day #15 grams 07/03/23 diphenoxylate-atropine 2.5 1 tab PO Q6H PRN diarrhea #90 tabs 07/04/23 mg-0.025 mg tablet citalopram 20 mg tablet 30 mg (1.5 x 20 mg) PO DAILY #135 07/21/23 tabs hyoscyamine sulfate 0.375 mg 0.375 mg PO Q12H #180 tabs 07/26/23 tablet,extended release,12 hr Allergies Allergy/AdvReac Type Severity Reaction Status Date / Time No Known Allergies Allergy Verified 07/31/23 14:17 [No Known Allergies*] Review of Systems Review of Systems: Constitutional: No Fever, No Chills, +Fatigue, + Malaise ENT/Mouth: No Hearing loss, No Ear Pain, No Nasal Congestion, No sore throat, No Rhinorrhea, No Swallowing Difficulty Eyes: No Eye Pain, No Swelling, No Redness, No Vision Changes Cardiovascular: No Chest Pain, No SOB, No Dyspnea on Exertion, No Orthopnea, No Edema, No Palpitations Respiratory: No Cough, No Sputum, No Dyspnea Gastrointestinal: No Nausea, No Vomiting, + Diarrhea, No Constipation, No Abdominal pain, No Hematochezia, No Melena Genitourinary: No irregular bleeding, No Dysuria, No Urinary Frequency, No Hematuria, No Urinary Incontinence/retention, No Flank Pain Musculoskeletal: No joint pain, No Myalgias, No Joint Swelling Skin: No Skin Lesions, No rash Neuro: No Weakness, No Numbness, No Paresthesias, + Loss of Consciousness, + lightheaded, +presyncope & syncope, No Headache Yes all other systems are reviewed and are negative Constitutional: Constitutional: Reports as per HPI Neurologic: Denies Abnormal speech present [facility] Past Medical History Attestation statement: The following information was validated with the patient. Source: old records reviewed Medical History Annual physical exam Weight loss Vitamin D deficiency Vertigo Anemia Obstructive sleep apnea Carotid stenosis, right Venous insufficiency of both lower extremities Status post CVA Compression fracture Osteoporosis CKD (chronic kidney disease) stage 3, GFR 30-59 ml/min History of IBS Lumbar stenosis Spondyloarthropathy Hyperlipidemia Depression COPD (chronic obstructive pulmonary disease) HTN (hypertension) Surgical History History of esophagogastroduodenoscopy (EGD) History of abdominal surgery Hx of cholecystectomy History of shoulder surgery History of oophorectomy History of hysterectomy H/O colonoscopy Family History Family History Father No problems noted. Mother Colon cancer Sister Metastatic cancer Social History Social History Housing: House Alcohol intake: never Patient Tobacco Use Status: Never used Tobacco Smoked in Last 30 Days: No e-Cigarette/Vaping Use: Never Used Use of substances other than those prescribed or required for medical reasons: No Advance Directives: No Advance Directives Information Provided: Yes Current occupational status: retired Cognitive needs: No Hearing needs: No Vision needs: No Physical Exam ED Vital Signs: Vital Signs - 24 hr 07/31/23 14:17 07/31/23 14:26 07/31/23 15:39 Temperature 98.2 F 98.2 F Pulse Rate 57 58 Respiratory Rate 16 Blood Pressure 104/33 L 97/49 L Pulse Oximetry 81 L Oxygen Delivery Method Room Air Oxygen Flow Rate 07/31/23 15:39 07/31/23 15:40 07/31/23 15:48 Temperature 98.3 F Pulse Rate 58 62 58 Respiratory Rate Blood Pressure 101/60 92/66 110/42 L Pulse Oximetry 95 Oxygen Delivery Method Nasal Cannula Oxygen Flow Rate 2 07/31/23 16:18 Temperature Pulse Rate 59 Respiratory Rate 16 Blood Pressure 95/37 L Pulse Oximetry 92 Oxygen Delivery Method Nasal Cannula Oxygen Flow Rate 2 BMI result Body Mass Index 24.8 Const General: cooperative, no acute distress, alert and awake Orientation/consciousness: patient oriented x3 Limitations: no limitations HENMT Head: Yes normal to inspection and Yes atraumatic Ears: hearing grossly normal bilaterally General nose exam: Normal external nose present Face and sinus: Yes normal facial exam Eyes General: appearance normal, both eyes and all related structures EOM: EOMs intact bilaterally Neck Neck: Yes normal visual inspection and Yes no meningeal signs Resp Effort & Inspection: normal respiratory effort and no respiratory distress Auscultation: crackles bilateral at the base Cardio Rate: regular rate Heart sounds: S1 normal heart sound present and S2 normal heart sound present GI Inspection: Yes normal to inspection Palpation (GI): Soft to palpation, nontender, no guarding and not rigid Skin Rashes: no rashes Wounds: no wounds Neuro General: patient oriented x3, tone normal, moves all extremities, no meningeal signs, no focal motor deficits and CN's II-XI intact bilaterally Cranial nerves: Yes CN's II-XII intact bilaterally Cognition (Neuro): normal cognition Speech: No Abnormal speech present Motor exam (neuro): 5/5 motor strength present throughout and no tremor noted Extrem General: Yes normal to inspection and Yes no pedal edema Course Course Course Narrative: -1600-- no leukocytosis. Acute on chronic anemia. hyponatremic to 130 > likely from hypovolemia. +BENNETT with a BUN 45 creatinine of 3.79 >> will obtain CT to r/o obstructive uropathy/mass. Low suspicion for severe sepsis likely from volume status - magnesium low at 1.3 > 2g IV repletion ordered. Troponin 6.8 > will obtain 3 hour repeat XR chest 1V IMPRESSION: Low lung volumes with streaky bibasilar opacities which may reflect atelectasis. Blunting of the costophrenic angles unchanged from 2019 and may reflect small pleural effusions or pleural parenchymal thickening. >> will obtain dry CT chest for further eval due to BENNETT -D-dimer elevated > V/Q scan ordered -1630--ED care transferred to [facility]k pending imaging, stool studies & admission Medications Administered Generic Name Dose Route Start Last Admin Trade Name Freq PRN Reason Stop Dose Admin Magnesium Sulfate 2 gm in 50 mls @ 25 mls/hr 07/31/23 15:45 07/31/23 16:16 Magnesium Sulfate/H2o IV 07/31/23 17:44 25 mls/hr ONCE ONE Administration Sodium Chloride 1,000 mls @ 999 mls/hr 07/31/23 16:00 07/31/23 16:16 Ns IV 07/31/23 17:00 999 mls/hr .Q1H1M KEVIN Administration Sodium Chloride 500 mls @ 999 mls/hr 07/31/23 16:15 07/31/23 16:17 Ns IV 07/31/23 16:45 999 mls/hr .Q31M KEVIN Administration Medical Decision Making Medical Decision Making [facility] Narrative: 78-year-old female with a past medical history of vitamin-D deficiency, anemia, osteoporosis, CKD, HLD, depression, COPD, HTN, CVA on Plavix, presenting to the ED via EMS complaining watery nonbloody diarrhea, generalized fatigue/ weakness, lightheadedness, and decreased p.o. intake x3-4 days w/ syncopal episode yesterday and other presyncopal episodes. On exam hypoxic mid 80s on room air difficult to obtain good pleth, no respiratory distress, bibasilar crackles noted, abdomen soft/ nontender, no appreciable pitting edema. No focal neuro deficits. Concern for metabolic abnormalities including dehydration vs vasovagal syncope vs C.diff vs PE vs PNA vs ?CHF. lower suspicion for ACS, appendicitis/diverticulitis, renal stone or CVA plan: EKG, labs, UA, CXR, head CT, orthostatics, IVF, stool studies, anticipate admission Please refer to course for remaining clinical decision making, interpretation of labs/imaging results, and discussions with consultants and/or family members. Differential Diagnosis Differential Diagnoses: The differential diagnosis associated with the presentation includes As above Admission/Observation Consideration of admission/observation: Escalation of care including admission/observation considered Lab Data [facility] Lab Attestation statement: I reviewed the patient's lab results. 07/31/23 15:14 07/31/23 15:14 Labs: Lab Results 07/31/23 Range/Units 15:14 WBC 9.0 (4.8-10.8) X10*3/uL RBC 3.55 L (4.20-5.50) X10*6/uL Hgb 9.0 L (12.0-16.0) g/dl Hct 29.9 L (37.0-47.0) % MCV 84.2 (80.0-98.0) fL MCH 25.4 L (27.0-33.0) pg MCHC 30.1 L (31.0-35.0) g/dl RDW 16.2 H (11.0-16.0) % Plt Count 116 L D (160-400) X10*3/uL MPV 9.1 L (9.4-12.3) fL Immature Gran % (Auto) 0.3 (0.0-0.4) % Neut % (Auto) 79.8 H (45-73) % Lymph % (Auto) 7.2 L (20-40) % [place] % (Auto) 11.4 H (2-11) % Eos % (Auto) 1.1 (0-4) % Baso % (Auto) 0.2 (0-2) % Lymph # (Auto) 0.7 L (1.2-4.9) X10*3/uL [place] # (Auto) 1.0 (0.1-1.2) X10*3/uL Eos # (Auto) 0.1 (0.0-0.4) X10*3/uL Baso # (Auto) 0.0 (0.0-0.2) X10*3/uL Abs Immat Gran (auto) 0.03 (0.00-0.03) X10*3/uL Absolute Neuts (auto) 7.2 (2.0-8.3) x10*3/uL Absolute Nucleated RBC 0.000 (0.0-0.012) X10*3/uL Nucleated RBC % (auto) 0.0 (0.0-0.2) /100WBC PT 11.5 (11.1-13.3) SEC INR 0.9 (0.9-1.1) D-Dimer High Sensitivty 495 NG/ML Sodium 130 L (135-145) mmol/L Potassium 4.2 (3.3-5.1) mmol/L Chloride 108 (96-108) mmol/L Carbon Dioxide 17 L (22-29) mmol/L Anion Gap 9 L (12-20) BUN 45 H (9-16) mg/dL Creatinine 3.79 H (0.5-1.4) mg/dL Estim Creat Clear Calc 10.7 Estimated GFR 11 Random Glucose 77 (60-115) mg/dL Calcium 7.3 L D (8.4-10.2) mg/dL Magnesium 1.3 L* (1.6-2.6) mg/dL Total Bilirubin 0.2 (0.0-1.0) mg/dL Direct Bilirubin < 0.2 (0.0-0.5) mg/dL AST 24 (5-31) U/L ALT 18 (0-31) U/L Alkaline Phosphatase 46 (39-117) U/L Troponin I High Sens 6.8 (<3.5-17.0) ng/L Total Protein 5.9 L (6.5-8.0) g/dL Albumin 3.4 L (3.5-5.0) g/dL Lipase 12 (8-78) U/L COVID-19 (ROSE) Negative (Negative) COVID-19 Clin Com See Note Independent Interpretation I performed an independent interpretation of an: EKG Radiology Impression Discussion of test interpretation with radiology: I have reviewed the radiologist's reading. Independent Historian Clinical information obtained from an independent historian. History obtained from or confirmed by: EMS and Other ( son) External Record Review External record reviewed: Inpatient record, Office record, Outpatient record, Prior outpatient labs, Prior outpatient radiology, Primary care record and Outside ED record Tests considered The following testing was considered but not selected: As above Chronic Conditions Patient?s care impacted by: Hypertension Critical Care Time Critical Care Time Critical Care Time: Yes Total Critical Care Time: 50 Attestation: I have personally provided critical care time exclusive of time spent on separately billable procedures. Time includes review of lab data, radiology results, discussion with consultants, and monitoring for potential decompensation. Intervention performed as documented. Discharge Plan Discharge Clinical Impression: Diarrhea, BENNETT (acute kidney injury), Hypomagnesemia, Hypoxia Patient Disposition: Still a Patient Prescriptions: No Action zolpidem 5 mg tablet 5 mg PO BEDTIME Qty: 30 2RF ketoconazole 2 % cream 1 appl topical DAILY Qty: 60 6RF bisoprolol fumarate 5 mg tablet 5 mg PO DAILY Qty: 90 3RF atorvastatin 80 mg tablet 80 mg PO BEDTIME Qty: 90 3RF omeprazole 20 mg capsule,delayed release(DR/EC) 20 mg PO DAILY Qty: 90 3RF clopidogrel 75 mg tablet 75 mg PO DAILY Qty: 90 3RF sodium polystyrene sulfonate Powder 15 g PO DAILY 1 Days Qty: 15 0RF diphenoxylate-atropine 2.5-0.025 mg tablet 1 tab PO Q6H PRN (Reason: diarrhea) Qty: 90 3RF citalopram 20 mg tablet 30 mg PO DAILY Qty: 135 3RF hyoscyamine sulfate 0.375 mg tablet extended release 12 hr 0.375 mg PO Q12H Qty: 180 1RF Enbrel SureClick 50 mg/mL (1 mL) pen injector subcut QWEEK lisinopril 10 mg tablet 10 mg PO DAILY amlodipine 10 mg tablet 10 mg PO DAILY albuterol sulfate 90 mcg/actuation HFA aerosol inhaler 2 puff inhalation Q6H PRN (Reason: shortness of breath or wheezing) Qty: 8.5 3RF gabapentin 300 mg capsule PO Q8H buprenorphine 15 mcg/hour patch weekly 1 patch topical QWEEK tramadol 50 mg tablet 50 mg PO BID PRN
--- NOTE | 2023-07-31 14:43 | ECG_ITS ---
Test Reason : FALL Blood Pressure : / mmHG Vent. Rate : 059 BPM Atrial Rate : 059 BPM P-R Int : 178 ms QRS Dur : 086 ms QT Int : 448 ms P-R-T Axes : 036 -11 028 degrees QTc Int : 443 ms Sinus bradycardia Minimal voltage criteria for LVH, may be normal variant ( R in aVL ) Borderline ECG No previous ECGs available Referred By: Rosalind Bermudez Electronically Signed By:DEL PARSONS
--- NOTE | 2023-07-31 14:44 | PC.NURSE ---
a&ox3, pt biba after having an increased amount of falls throughout the past week. pt also c/o dizziness, weakness, diarrhea and poor PO intake for the past 3 days. pt has not been able to keep anything in recently. pt's most recent fall was this morning. pt's son states it to be as a syncopal episode where she passed out and he was able to catch her. -headstrike, -LOC, +thinners. pt comes in on O2 during ems transport but denies O2 use at home. pt currently has bad pleth and O2 has been fluctuating between 81%-85%. 3L via nasal cannula applied. pt currently at 91%. pt denies hx of COPD, asthma, or any other respiratory issues. pt is currently not SOB and able to speak in full, clear sentences w/o difficulty. pt's son bedside for support. pt resting comfortably in no apparent distress. respirations even and unlabored.
[2023-07-31 15:21] LABS: MANUAL DIFF FLAG NO
[2023-07-31 15:25] LABS: Basophils Percent Auto 0.2 % (0-2); Eosinophils Absolute Auto 0.1 X10*3/uL (0.0-0.4); Eosinophils Percent Auto 1.1 % (0-4); Hematocrit 29.9 % (37.0-47.0); Imm Gran Abs Auto 0.03 X10*3/uL (0.00-0.03); Imm Gran Pct Auto 0.3 % (0.0-0.4); Lymphocytes Absolute Auto 0.7 X10*3/uL (1.2-4.9); Lymphocytes Percent Auto 7.2 % (20-40); Mean Corpuscular HGB Conc 30.1 g/dl (31.0-35.0); Mean Corpuscular Hemoglobin 25.4 pg (27.0-33.0); Mean Corpuscular Volume 84.2 fL (80.0-98.0); Mean Platelet Volume 9.1 fL (9.4-12.3); Monocytes Percent Auto 11.4 % (2-11); Neutrophils Absolute Auto 7.2 x10*3/uL (2.0-8.3); Neutrophils Percent Auto 79.8 % (45-73); Platelet Count 116 X10*3/uL (160-400); Red Blood Count 3.55 X10*6/uL (4.20-5.50); Red Cell Distribution Width 16.2 % (11.0-16.0)
[2023-07-31 15:34] LABS: INTERNATIONAL NORM RATIO 0.9 (0.9-1.1); Prothrombin Time 11.5 SEC (11.1-13.3)
[2023-07-31 15:37] LABS: D Dimer High Sensitivity 495 NG/ML
[2023-07-31 15:40] LABS: COVID-19 Test Negative (Negative); IDNOW Serial# BCCEAD1C
[2023-07-31 15:46] LABS: Alanine Aminotransferase 18 U/L (0-31); Albumin Level 3.4 g/dL (3.5-5.0); Alkaline Phosphatase 46 U/L (39-117); Anion Gap 9 (12-20); Aspartate Amino Transferase 24 U/L (5-31); Bilirubin Direct < 0.2 mg/dL (0.0-0.5); Bilirubin Total 0.2 mg/dL (0.0-1.0); Blood Urea Nitrogen 45 mg/dL (9-16); Calcium 7.3 mg/dL (8.4-10.2); Carbon Dioxide 17 mmol/L (22-29); Chloride 108 mmol/L (96-108); Creatinine Clr Calc Pharmacy 10.7; Estimated Glomerular Filt Rate 11; Glucose Random 77 mg/dL (60-115); Lipase 12 U/L (8-78); Magnesium 1.3 mg/dL (1.6-2.6); Potassium 4.2 mmol/L (3.3-5.1); Sodium 130 mmol/L (135-145); Total Protein 5.9 g/dL (6.5-8.0)
[2023-07-31 15:48] LABS: Troponin-I High Sensitivity 6.8 ng/L (<3.5-17.0)
--- NOTE | 2023-07-31 15:53 | MHC.EDTECH ---
this pct assumed care of pt at 1500 ,orthostatics vitals sign taken and ekg done and was read by provider ,warm blanket given ,pt son at bed side .
[2023-07-31] MEDS: Magnesium Sulfate/H2O 2 GM/50 ML PIGGYBACK IV (16:16)
[2023-07-31] MEDS: 0.9 % Sodium Chloride 1,000 ML 999 ML IV (16:16)
[2023-07-31] MEDS: 0.9 % Sodium Chloride 500 ML 999 ML IV (16:17)
--- NOTE | 2023-07-31 16:18 | PC.NURSE ---
pt reamins a&ox3. vss and up to date. nsr/sinus eliz on the groundwater monitoring technician. IVF and medications administered per provider order. pt resting comfortably in no apparent distress. respirations even and unlabored. call rodriguez placed within reach.
--- NOTE | 2023-07-31 16:19 | PC.NURSE ---
Lazaro Kirby (patient's son) [phone]
--- NOTE | 2023-07-31 17:08 | PC.NURSE ---
vss and up to dare. nsr on the monitoring and evaluation advisor. pt verbalizing no pain at this time. pt resting comfortably and in no apparent distress. respirations even and unlabored. call rodriguez placed within reach.
--- NOTE | 2023-07-31 18:08 | PC.NURSE ---
pt transported to nuclear medicine for testing.
[2023-07-31 18:28] LABS: Anion Gap 9 (12-20); Blood Urea Nitrogen 43 mg/dL (9-16); Calcium 6.8 mg/dL (8.4-10.2); Carbon Dioxide 15 mmol/L (22-29); Chloride 110 mmol/L (96-108); Creatinine Clr Calc Pharmacy 12.1; Estimated Glomerular Filt Rate 13; Glucose Random 87 mg/dL (60-115); Potassium 4.3 mmol/L (3.3-5.1); Sodium 130 mmol/L (135-145)
[2023-07-31 18:37] LABS: Troponin-I High Sensitivity 7.4 ng/L (<3.5-17.0)
--- NOTE | 2023-07-31 18:38 | PC.NURSE ---
pt's son waiting in room for pt to return from testing. pt's son aware on where his mother is at this time. let son know that if he needs anything to press the call rodriguez.
--- NOTE | 2023-07-31 18:49 | PC.NURSE ---
pt returned from nuclear medicine testing. vss and up to date. nsr on the air sampling and monitoring. pt resting comfortably in no apparent distress. respirations even and unlabored. pt's son bedside for support. call rodriguez placed within reach.
--- NOTE | 2023-07-31 19:20 | PC.NURSE ---
Assumed care of pt. Pt lying on stretcher, son at bedside. pt with dry appearance, somewhat pale. O2 saturation unclear on monitor initially, changed pulse oxymeter and found pt to be at 90% on 2L via NC. Adjusted to 4L with improvement to 94%. LSCTA, no respiratory distress stated by pt. Will speak to provider over concerns. No other acute distress noted at this time.
[2023-07-31] MEDS: Heparin Sodium,Porcine 5,000 UNIT/ML VIAL 5000 UNIT SUBCUT (20:22)
[2023-07-31] MEDS: 0.9 % Sodium Chloride 1,000 ML 100 ML IVCONT (20:22)
--- NOTE | 2023-07-31 20:22 | PM.IMHP ---
History of Present Illness Date of Service: 07/31/23 Attending physician on admission: Brayan Daily Chief Complaint: syncope 78-year-old female with history of osteoporosis, CKD stage 3, NICHO on CPAP, COPD, hypertension, chronic low back pain, history of CVA, history polio presents to the ED earlier today with her son for evaluation of diarrhea and several syncopal episodes. She states 3 days ago developed 10+ episodes of watery diarrhea that persisted until early this morning. Has not had any further episodes of diarrhea. Denies any melena or hematochezia. No associated abdominal pain, nausea, vomiting. Denies eating any bad foods, recent antibiotic use, recent travel. No one at home has similar symptoms. In the 1st day of symptoms, well going to use the restroom, she sustained a near syncopal episode where she fell off the toilet. This episode she did not lose consciousness or hit her head. However she had to additional episodes the next 2 days where her son caught her and lowered her to the ground and reports a loss of consciousness lasting several seconds but no head injury. After the syncopal episode, she reports she felt foggy. She has not been eating or drinking much secondary to her symptoms. She does also endorse a headache. Denies any fevers, chills, cough, upper respiratory symptoms, urinary symptoms, shortness of breath, palpitations, or chest pain. On arrival, patient afebrile with soft blood pressures ranging 92/66 to 123/37 on admission. Orthostatic vital signs negative. Per nursing staff, it has been difficult to accurately assess oximetry as patient has been ranging 81-93% on room air placed on 3 L supplemental O2 and still occasionally desatting to 85%. Will obtain ABG. Normocytic anemia with H/H 9.0/29.9%. Platelets 116. Initial creatinine 3.79, BUN 45. Improved to 3.38, 43 following IVF. She has hypocalcemia of 6.8. Mild hyponatremia of 130, CO2 15. Urinalysis pending. EKG shows sinus bradycardia, rate [address] or depressions. Chest x-ray shows low lung volumes with streaky bibasilar opacities which may reflect atelectasis as well as mild blunting of the costophrenic angles unchanged from 2019 possibly representing small pleural effusions or pleural parenchymal thickening. Chest CT shows emphysema with minimal chronic bilateral lower lobe pneumonia or resolving infiltrate/atelectasis but no pleural effusion. CT abdomen/pelvis negative for any acute process but does show moderate constipation without obstruction and small hiatal hernia. There was also noted to be compression fractures at T10 and 11 with cement augmentation and exaggerated thoracic kyphosis in the lower dorsal spine. No abnormality of the lumbosacral spine. D-dimer elevated and subsequent V/Q scan was normal without evidence of PE. Review of Systems Review of Systems: General: No fevers, malaise, unintentional weight loss HEENT: No blurred vision, diplopia. No sore throat, nasal congestion, rhinorrhea, sinus pain, ear pain Cardiovascular: No chest pain, palpitations, or leg edema Respiratory: No shortness of breath, wheezing, cough GI: +diarrhea. No abdominal pain, nausea, vomiting, constipation, melena, hematochezia : No dysuria, hematuria, increased urinary frequency, decreased urinary output MSK: No myalgia, back pain Neuro: No weakness, paresthesias. +headache, +syncope Skin: No rashes or lesions [facility] Medical History Annual physical exam Weight loss Vitamin D deficiency Vertigo Anemia Obstructive sleep apnea Carotid stenosis, right Venous insufficiency of both lower extremities Status post CVA Compression fracture Osteoporosis CKD (chronic kidney disease) stage 3, GFR 30-59 ml/min History of IBS Lumbar stenosis Spondyloarthropathy Hyperlipidemia Depression COPD (chronic obstructive pulmonary disease) HTN (hypertension) Family History Father No problems noted. Mother Colon cancer Sister Metastatic cancer Surgical History History of esophagogastroduodenoscopy (EGD) History of abdominal surgery Hx of cholecystectomy History of shoulder surgery History of oophorectomy History of hysterectomy H/O colonoscopy Social History Housing: House Alcohol intake: never Patient Tobacco Use Status: Never used Tobacco Smoked in Last 30 Days: No e-Cigarette/Vaping Use: Never Used Use of substances other than those prescribed or required for medical reasons: No Advance Directives: No Advance Directives Information Provided: Yes Current occupational status: retired Cognitive needs: No Hearing needs: No Vision needs: No Meds Allergies Allergy/AdvReac Type Severity Reaction Status Date / Time No Known Allergies Allergy Verified 07/31/23 14:17 [No Known Allergies*] Active Medications: Current Medications Acetaminophen (Acetaminophen 325 Mg Tablet) 650 mg PO Q6H PRN PRN Reason: Pain, Mild (Pain Scale 1-3) Albuterol Sulfate (Albuterol Sulfate (0.083%) 2.5 Mg/3 Ml Vial.Neb) 2.5 mg INHALE Q4H PRN PRN Reason: Shortness of Breath/Wheezing Docusate Sodium (Docusate Sodium 100 Mg Capsule) 100 mg PO DAILY PRN PRN Reason: Constipation Heparin Sodium (Porcine) (Heparin Sodium,Porcine 5,000 Unit/Ml Vial) 5,000 unit SUBCUT Q12H KEVIN Sodium Chloride (Ns) 1,000 mls @ 100 mls/hr IVCONT .Q10H KEVIN Ondansetron HCl (Ondansetron Hcl 4 Mg/2 Ml Vial) 4 mg IVPUSH Q8H PRN PRN Reason: Nausea and Vomiting Sodium Chloride (0.9 % Sodium Chloride Flush 3 Ml Syringe) 3 ml IVFLUSH QSHIFT [facility] Home Medications Medication Instructions Recorded Confirmed Last Taken Type etanercept 50 mg/mL (1 mL) mg subcut QWEEK 08/21/20 07/03/23 Unknown History subcutaneous pen injector lisinopril 10 mg tablet 10 mg PO DAILY 08/21/20 07/03/23 Unknown History amlodipine 10 mg tablet 10 mg PO DAILY 01/06/21 07/03/23 Unknown History gabapentin 300 mg capsule mg PO Q8H 06/30/22 07/03/23 Unknown History buprenorphine 15 mcg/hour weekly 1 patch topical QWEEK 02/01/23 07/03/23 Unknown History transdermal patch tramadol 50 mg tablet 50 mg PO BID PRN 04/24/23 07/03/23 Unknown History Physical Exam Vital Signs and Narrative: Vital Signs: Last Vital Signs Temp 97.5 F 07/31/23 19:38 Pulse 64 07/31/23 19:38 Resp 18 07/31/23 19:38 BP 103/37 L 07/31/23 19:38 Pulse Ox 93 09/18/23 19:38 O2 Del Method Nasal Cannula 07/31/23 19:38 O2 Flow Rate 4 07/31/23 19:38 BMI result Body Mass Index 24.8 Constitutional - Awake and Alert, No apparent distress Eyes - PERRLA, EOMI Cardiovascular - S1S2, RRR, No edema Respiratory - Normal lung expansion, Normal respiratory effort, No respiratory distress, crackles LLL Gastrointestinal - NT / ND; +BS; No rebound or guarding Extremities - no calf tenderness bilaterally, no swelling Skin - Warm/Dry Neurological - Alert & oriented x3, CN II-XII in tact, 5/5 strength BUE and BLE Psychological - Appropriate affect Results Labs 07/31/23 15:14 07/31/23 18:02 Labs: Laboratory Results - last 24 hr 07/31/23 07/31/23 15:14 18:02 MCV 84.2 MCH 25.4 L MCHC 30.1 L RDW 16.2 H Plt Count 116 L D MPV 9.1 L Immature Gran % (Auto) 0.3 Neut % (Auto) 79.8 H Lymph % (Auto) 7.2 L Bulloch % (Auto) 11.4 H Eos % (Auto) 1.1 Baso % (Auto) 0.2 Lymph # (Auto) 0.7 L Bulloch # (Auto) 1.0 Eos # (Auto) 0.1 Baso # (Auto) 0.0 Abs Immat Gran (auto) 0.03 Absolute Neuts (auto) 7.2 Absolute Nucleated RBC 0.000 Nucleated RBC % (auto) 0.0 PT 11.5 INR 0.9 D-Dimer High Sensitivty 495 Anion Gap 9 L 9 L Estim Creat Clear Calc 10.7 12.1 Estimated GFR 11 13 Random Glucose 77 87 Calcium 7.3 L D 6.8 L D Magnesium 1.3 L* Total Bilirubin 0.2 Direct Bilirubin < 0.2 AST 24 ALT 18 Alkaline Phosphatase 46 Total Protein 5.9 L Albumin 3.4 L Lipase 12 COVID-19 (ROSE) Negative COVID-19 Clin Com See Note Imaging Radiologist's Impressions: Impressions Chest X-Ray 07/31/23 15:01 IMPRESSION: Low lung volumes with streaky bibasilar opacities which may reflect atelectasis. Blunting of the costophrenic angles unchanged from 2019 and may reflect small pleural effusions or pleural parenchymal thickening. Head CT 07/31/23 15:34 IMPRESSION: 1. No acute intracranial process seen. 2. Mild cerebral volume loss. . Abdomen/Pelvis CT 07/31/23 17:04 IMPRESSION: 1. Emphysema with minimal chronic bilateral lower lobe pneumonia or resolving infiltrates/atelectasis. There is no pleural effusion. 2. There is no acute process seen in the abdomen. 3. Moderate constipation without obstruction. Mild colonic diverticulosis 4. Small hiatal hernia. 5 Old compression fractures T10 and T11 vertebra with cement augmentation. There is exaggerated thoracic kyphosis in the lower dorsal spine Chest CT 07/31/23 17:04 IMPRESSION: 1. Emphysema with minimal chronic bilateral lower lobe pneumonia or resolving infiltrates/atelectasis. There is no pleural effusion. 2. There is no acute process seen in the abdomen. 3. Moderate constipation without obstruction. Mild colonic diverticulosis 4. Small hiatal hernia. 5 Old compression fractures T10 and T11 vertebra with cement augmentation. There is exaggerated thoracic kyphosis in the lower dorsal spine Pulmonary Perfusion Imaging 07/31/23 18:35 IMPRESSION: Normal lung perfusion study. Assessment and Plan (1) BENNETT (acute kidney injury): Status: Acute (2) Hypoxia: Status: Acute (3) Hypomagnesemia: Status: Acute (4) Diarrhea: Status: Acute (5) Syncope: Status: Acute Plan 78-year-old female with history of osteoporosis, CKD stage 3, NICHO on CPAP, COPD, hypertension, chronic low back pain, history of CVA, history polio admitted for BENNETT and syncope #Syncope -likely secondary to hypovolemia from GI losses -Head CT negative -Orthostatics negative -VQ scan negative for PE -Trops WNL and flat -Continue IVF -monitor on telemetry # acute kidney injury- likely pre renal due to hypovolemia from GI losses -repeat creatinine 3.38, BUN 43. Baseline creatinine 1.01. At baseline has CKD stage 3 -CT abdomen/pelvis negative for any obstructive process -received 2 L IVF in the ED. Continue IV NS -urine studies pending -avoid nephrotoxins -monitor I&O -follow BMP -consider Nephrology consult if not improving # acute diarrhea -check GI panel and C diff PCR # acute hypo magnesiumemia -likely secondary to diarrhea above -repleted in the ED -repeat Mag a.m. # hypocalcemia- in the setting of osteoporosis -initiate calcium + vitamin-D # ?acute hypoxemic respiratory failure -per nursing, oximetry has been fluctuating and has been difficult to accurately assess -chest CT shows emphysema, but no evidence of acute exacerbation, and chronic bilateral lower lobe pneumonia or resolving infiltrates versus atelectasis. No acute process noted and she is not on home O2 -will obtain ABG -CTA chest negative for PE, troponins within normal limits and flat -for the time being, continue 4 L supplemental O2 to maintain oximetry greater than 92% # COPD -no acute exacerbation -albuterol p.r.n. # hypertension -hold antihypertensives in the setting of BENNETT and soft blood pressures # NICHO -CPAP # chronic opiate dependence -continue buprenorphine DVT prophylaxis-heparin Full code Patient requires inpatient stay at least 2 midnights for management of acute kidney injury due to GI losses requiring IV fluid resuscitation and close monitoring of renal function and electrolyte levels I cannot take place at lower level of care Time Spent With Patient Time: Total time managing care of this patient today ____ minutes. Quality Stroke Does the patient have a stroke diagnosis?: No VTE Prior VTE?: No VTE Risk Level:: Medical - moderate - high VTE Device Contraindication: Treatment Not Indicated VTE Drug Contraindication: N/A - Med Ordered
--- NOTE | 2023-07-31 20:29 | PC.NURSE ---
Medicated per Mar, pt has an elevated blood pressure 189/166, notified ARYAN Abdi, Will continue to monitor.
--- NOTE | 2023-07-31 21:32 | MHC.EDTECH ---
PATIENT URINE SAMPLE COLLECTED AND SENT TO LAB .
[2023-07-31 21:42] LABS: Appearance Urine Clear; Color Urine Yellow; Glucose Urine UA Negative (Negative); Leukocyte Esterase Urine Moderate (2+) (Negative); Nitrite Urine Negative (Negative); PH 5.5 (5.0-9.0); Specific Gravity - Urine 1.015 (1.005-1.025); UMIC TRIGGER UACC YES; Urine Blood Trace (Negative); Urine Ketones Negative (Negative); Urine Protein 30 (1+) mg/dL (Neg-Trace)
[2023-07-31 21:45] LABS: ABG Base Excess -14.1 mmol/L; ABG HCO3 12 mmol/L (22-26); ABG pCO2 29 mmHg (32-45); ABG pH 7.22 (7.35-7.45); ABG pO2 74 mmHg (83-108)
[2023-07-31 21:50] LABS: Osmolality Urine 316 mosm/kg (373-1093)
[2023-07-31 21:51] LABS: Potassium Urine Random 28.6 mmol/L; Sodium Urine Random < 20.0 mmol/L
[2023-07-31 21:58] LABS: Bacteria Urine None Seen (None Seen); RBC Urine 0-2 /HPF (0-2); UACC Culture Trigger YES; WBC Urine >50 /HPF (0-5)
[2023-07-31] MEDS: Sodium Bicarbonate 8.4% 50 MEQ/50 ML SYRINGE IVPUSH (22:09)
[2023-07-31 22:18] LABS: Chloride Urine Random < 20.0 mmol/L
--- NOTE | 2023-07-31 22:59 | MHC.EDTECH ---
PATIENT IS INCONTINENT OF LOOSE STOOLS ,CARE GIVEN STOOL SAMPLE COLLECTED AND SENT TO LAB ,VITALS SIGN TAKEN .
--- NOTE | 2023-07-31 23:37 | MHC.EDTECH ---
PT placed on purwick
[2023-07-31 23:59] LABS: CDiff Gene PCR NEGATIVE (Negative)
[2023-08-01] MEDS: 0.9 % Sodium Chloride 1,000 ML 100 ML IVCONT ×3 (00:52→21:04)
--- NOTE | 2023-08-01 00:53 | PC.NURSE ---
Pt accidentally disclodged IV. remainder of IVF discarded and new bag initiated.
[2023-08-01 01:30] VITALS: BP 106/77; PULSE 71; RESP 16; O2SAT 93
--- NOTE | 2023-08-01 01:42 | MHC.EDTECH ---
Miguelode placed at bedside, PT IV line came out and pt blood leaked on arm and stretcher. Pt cleaned up and stretcher cleaned and clean linen put on
[2023-08-01 05:53] LABS: MANUAL DIFF FLAG NO
[2023-08-01 05:56] LABS: Basophils Percent Auto 0.5 % (0-2); Eosinophils Percent Auto 0.5 % (0-4); Hemoglobin 9.3 g/dl (12.0-16.0); Imm Gran Abs Auto 0.04 X10*3/uL (0.00-0.03); Imm Gran Pct Auto 0.5 % (0.0-0.4); Lymphocytes Absolute Auto 0.5 X10*3/uL (1.2-4.9); Mean Corpuscular Hemoglobin 25.5 pg (27.0-33.0); Mean Corpuscular Volume 84.9 fL (80.0-98.0); Mean Platelet Volume 9.7 fL (9.4-12.3); Monocytes Absolute Auto 0.9 X10*3/uL (0.1-1.2); Monocytes Percent Auto 10.7 % (2-11); Neutrophils Absolute Auto 7.1 x10*3/uL (2.0-8.3); Neutrophils Percent Auto 81.8 % (45-73); Platelet Count 106 X10*3/uL (160-400); Red Blood Count 3.65 X10*6/uL (4.20-5.50); Red Cell Distribution Width 16.2 % (11.0-16.0); White Blood Count 8.6 X10*3/uL (4.8-10.8)
[2023-08-01 06:17] LABS: Anion Gap 14 (12-20); Blood Urea Nitrogen 39 mg/dL (9-16); Calcium 6.8 mg/dL (8.4-10.2); Carbon Dioxide 14 mmol/L (22-29); Chloride 111 mmol/L (96-108); Creatinine Clr Calc Pharmacy 17.3; Estimated Glomerular Filt Rate 20; Glucose Random 67 mg/dL (60-115); Magnesium 1.9 mg/dL (1.6-2.6); Potassium 4.2 mmol/L (3.3-5.1); Sodium 135 mmol/L (135-145)
[2023-08-01 07:33] VITALS: BP 122/47; PULSE 74; RESP 16; TEMP 36.8; O2SAT 92
--- NOTE | 2023-08-01 07:38 | PC.NURSE ---
pt a&ox3. skin warm pink and dry respirations even and unlabored, lung sounds clear bilaterally. pt on 4L nasal cannula sating between 90-92%. pt denies SOB and chest pain. abdomen soft non tender to touch with active bowel sounds in all 4 quadrants, pt denies nausea and vomiting. this RN helped pt to bedside commode where pt had episode of diarrhea, pt had small amount in the commode. bed linens changed at this time. pt set up for breakfast, sitting comfortably in bed. pt normal sinus on tele ranging from 78-80.
--- NOTE | 2023-08-01 08:37 | MHC.CM.PN ---
patient is fully independent. she lives with hcp/son, Lazaro. copy of hcp is requested. if she is unable to locate the document, she is aware that one can be completed here during her stay. She uses no DME for ambulation and drives where needed. no services in the home She is hoping to return home at [place]. IMM discussed IMM 08/01/23 in chart.
[2023-08-01] MEDS: Heparin Sodium,Porcine 5,000 UNIT/ML VIAL 5000 UNIT SUBCUT ×2 (08:50→20:53)
[2023-08-01] MEDS: Calcium + Vitamin D 250 MG TABLET 500 MG PO (08:50)
--- NOTE | 2023-08-01 08:52 | PC.NURSE ---
purewick placed by this RN, pt tolerated procedure well.
--- NOTE | 2023-08-01 08:59 | PHA.MEDREC ---
Pharmacy Consult ? Medication Reconciliation Pharmacy has completed the medication reconciliation. Patient applies buprenorphine patch on , injects Enbrel on Sundays. Last gabapentin fill in spring but says she takes the dose less than how it was prescribed.
[2023-08-01 11:37] VITALS: BP 135/53; PULSE 74; RESP 18; TEMP 36.8; O2SAT 97
--- NOTE | 2023-08-01 11:43 | PC.NURSE ---
Dr. Narayanan at bedside discussing pt plan of care. per provider verbal order, keep IV fluids normal saline continuous at 100ml/hr.
--- NOTE | 2023-08-01 12:42 | PC.NURSE ---
lab called stating pt needs new GI panel that the specimen is short and needs recollect.
--- NOTE | 2023-08-01 12:50 | PC.NURSE ---
pt found on the commode, large amount of loose stool on the floor and all over the pt, pt cleaned up and assisted back into bed.
--- NOTE | 2023-08-01 13:13 | PC.NURSE ---
pt assisted to the commode and urinate, pt is excretory wheezing and slightly labored in breathing with minim exertion, called respiratory for a breathing treatment
--- NOTE | 2023-08-01 16:24 | PC.NURSE ---
this RN messaged medsurg nurse to give report. medsurg nurse will call back.
[2023-08-01 16:33] VITALS: BP 126/92; PULSE 79; RESP 16; O2SAT 94
--- NOTE | 2023-08-01 17:09 | HO.PM.IMPN ---
Subjective Subjective Date of Service: 08/01/23 Interval History: Stool continue to be watery. Complains of crampy abdominal pain Review of Systems Denies chest pain Denies shortness of breath Denies nausea vomiting admits diarrhea Denies fever chills Physical Exam Vital Signs: Vital Signs: Last Vital Signs Temp 98.3 F 08/01/23 11:37 Pulse 79 08/01/23 16:33 Resp 16 08/01/23 16:33 BP 126/92 H 08/01/23 16:33 Pulse Ox 94 08/01/23 16:33 O2 Del Method Nasal Cannula 08/01/23 16:33 O2 Flow Rate 4 08/01/23 16:33 BMI result Body Mass Index 24.8 Const: Other: Awake alert no acute distress Resp: Other: Clear to auscultation bilaterally no rales rhonchi or wheezes GI: Other: Soft nontender nondistended normoactive bowel sounds Extrem: Other: No edema bilaterally Objective Data Active Medications Acetaminophen (Acetaminophen 325 Mg Tablet) 650 mg PO Q6H PRN PRN Reason: Pain, Mild (Pain Scale 1-3) Albuterol Sulfate (Albuterol Sulfate (0.083%) 2.5 Mg/3 Ml Vial.Neb) 2.5 mg INHALE Q4H PRN PRN Reason: Shortness of Breath/Wheezing Calcium Carbonate/Cholecalciferol (Calcium + Vitamin D 250 Mg Tablet) 500 mg PO DAILY COUNTS INCLUDE 234 BEDS AT THE [facility] Last Admin: 08/01/23 08:50 Dose: 500 mg Documented By: CLARK Docusate Sodium (Docusate Sodium 100 Mg Capsule) 100 mg PO DAILY PRN PRN Reason: Constipation Heparin Sodium (Porcine) (Heparin Sodium,Porcine 5,000 Unit/Ml Vial) 5,000 unit SUBCUT Q12H COUNTS INCLUDE 234 BEDS AT THE [facility] Last Admin: 08/01/23 08:50 Dose: 5,000 unit Documented By: CLARK Sodium Chloride (Ns) 1,000 mls @ 100 mls/hr IVCONT .Q10H COUNTS INCLUDE 234 BEDS AT THE [facility] Last Admin: 08/01/23 16:54 Dose: 100 mls/hr Documented By: CLARK Ondansetron HCl (Ondansetron Hcl 4 Mg/2 Ml Vial) 4 mg IVPUSH Q8H PRN PRN Reason: Nausea and Vomiting Sodium Chloride (0.9 % Sodium Chloride Flush 3 Ml Syringe) 3 ml IVFLUSH QSHIFT KEVIN Last Admin: 08/01/23 16:53 Dose: Not Given Documented By: CLARK Non-Admin Reason: IV Running Labs 08/01/23 05:43 08/01/23 05:43 Labs: Laboratory Results - last 24 hr 07/31/23 07/31/23 07/31/23 18:02 21:30 21:31 MCV MCH MCHC RDW Plt Count MPV Immature Gran % (Auto) Neut % (Auto) Lymph % (Auto) Coleman % (Auto) Eos % (Auto) Baso % (Auto) Lymph # (Auto) Coleman # (Auto) Eos # (Auto) Baso # (Auto) Abs Immat Gran (auto) Absolute Neuts (auto) Absolute Nucleated RBC Nucleated RBC % (auto) O2 Saturation ABG pH at Pt Temp ABG pCO2 at Pt Temp ABG pO2 at Pt Temp ABG HCO3 ABG Base Excess (Actual) Anion Gap 9 L Estim Creat Clear Calc 12.1 Estimated GFR 13 Random Glucose 87 Calcium 6.8 L D Magnesium Urine Color Yellow Urine Appearance Clear Urine pH 5.5 Ur Specific [place] 1.015 Urine Protein 30 (1+) H Urine Glucose (UA) Negative Urine Ketones Negative Urine Blood Trace H Urine Nitrite Negative Ur Leukocyte Esterase Moderate (2+) H Urine RBC 0-2 Urine WBC >50 H Ur Squamous Epith Cells 11-20 Urine Bacteria None Seen Hyaline Casts 11-20 Urine Osmolality 316 L Ur Random Sodium < 20.0 Ur Random Potassium 28.6 Ur Random Chloride < 20.0 Stl C. cayetanensis PCR Stool Rotavirus A PCR Stl Adenov F 40/41 PCR Stool Astrovirus (PCR) Stool Campylobacter PCR Stool Cryptosporidium PCR Stl Sh Tox Pr E STEC PCR Stool E coli O157 PCR Stl Enterotoxigenic E PCR Stool EPEC (PCR) Stool EAEC (PCR) Stl E. histolytica PCR Stool Giardia Lamblia PCR Stl P. shigelloides PCR Stool Salmonella PCR Stool Sapovirus (PCR) Stl Shigella/EIEC PCR St Y.enterocolitica PCR Stool Vibrio (PCR) Stl Vibrio cholerae PCR Stl Norovirus GI/GII PCR C. difficile Tox B Gene 07/31/23 07/31/23 08/01/23 21:40 22:56 05:43 MCV 84.9 MCH 25.5 L MCHC 30.0 L RDW 16.2 H Plt Count 106 L MPV 9.7 Immature Gran % (Auto) 0.5 H Neut % (Auto) 81.8 H Lymph % (Auto) 6.0 L Coleman % (Auto) 10.7 Eos % (Auto) 0.5 Baso % (Auto) 0.5 Lymph # (Auto) 0.5 L Coleman # (Auto) 0.9 Eos # (Auto) 0.0 Baso # (Auto) 0.0 Abs Immat Gran (auto) 0.04 H Absolute Neuts (auto) 7.1 Absolute Nucleated RBC 0.000 Nucleated RBC % (auto) 0.0 O2 Saturation 92.0 ABG pH at Pt Temp 7.22 L ABG pCO2 at Pt Temp 29 L ABG pO2 at Pt Temp 74 L ABG HCO3 12 L ABG Base Excess (Actual) -14.1 Anion Gap 14 Estim Creat Clear Calc 17.3 Estimated GFR 20 Random Glucose 67 Calcium 6.8 L Magnesium 1.9 Urine Color Urine Appearance Urine pH Ur Specific [place] Urine Protein Urine Glucose (UA) Urine Ketones Urine Blood Urine Nitrite Ur Leukocyte Esterase Urine RBC Urine WBC Ur Squamous Epith Cells Urine Bacteria Hyaline Casts Urine Osmolality Ur Random Sodium Ur Random Potassium Ur Random Chloride Stl C. cayetanensis PCR Cancelled Stool Rotavirus A PCR Cancelled Stl Adenov F 40/41 PCR Cancelled Stool Astrovirus (PCR) Cancelled Stool Campylobacter PCR Cancelled Stool Cryptosporidium PCR Cancelled Stl Sh Tox Pr E STEC PCR Cancelled Stool E coli O157 PCR Cancelled Stl Enterotoxigenic E PCR Cancelled Stool EPEC (PCR) Cancelled Stool EAEC (PCR) Cancelled Stl E. histolytica PCR Cancelled Stool Giardia Lamblia PCR Cancelled Stl P. shigelloides PCR Cancelled Stool Salmonella PCR Cancelled Stool Sapovirus (PCR) Cancelled Stl Shigella/EIEC PCR Cancelled St Y.enterocolitica PCR Cancelled Stool Vibrio (PCR) Cancelled Stl Vibrio cholerae PCR Cancelled Stl Norovirus GI/GII PCR Cancelled C. difficile Tox B Gene NEGATIVE Microbiology Microbiology Results: Microbiology 07/31/23 Unknown Urine Culture - Preliminary Urine clean catch - Urine oconnor top Culture too young to evaluate. Assessment and Plan (1) BENNETT (acute kidney injury): Status: Acute (2) Syncope: Status: Acute (3) Hypoxia: Status: Acute Plan 78-year-old female with history of osteoporosis, CKD stage 3, NICHO on CPAP, COPD, hypertension, chronic low back pain, history of CVA, history polio admitted for BENNETT and syncope 1.Syncope -likely 2nd to volume depletion secondary to acute diarrhea -continue gentle IV volume repletion -follow clinically 2.Acute kidney injury -continue volume repletion overnight -follow renals/divalents -renal consult in a.m. if indicated 3.Acute diarrhea -check GI panel -C diff negative -supportive care 3.Acute hypoxemic respiratory failure -workup including V/Q scan negative -titrate O2 as tolerated 4.COPD -no acute exacerbation -albuterol p.r.n. 5.Hypertension -acceptable control off therapies -add back as appropriate 4.Chronic opiate dependence -continue buprenorphine Heparin Full code Patient requires ongoing hospitalization for volume replacement to treat acute kidney injury and to support ongoing diarrhea Time Spent With Patient Time: Total time managing care of this patient today ____ minutes. Quality Stroke Does the patient have a stroke diagnosis?: No VTE Prior VTE?: No VTE Risk Level:: Medical - moderate - high VTE Device Contraindication: Treatment Not Indicated VTE Drug Contraindication: N/A - Med Ordered
--- NOTE | 2023-08-01 17:29 | PC.NURSE ---
report given to [facility] nurse.
--- NOTE | 2023-08-01 17:35 | PC.NURSE ---
pt linens changed and purewick placed. pt tolerated well.
[2023-08-01 19:02] VITALS: BP 144/61; PULSE 77; RESP 16; TEMP 36.1; O2SAT 95
[2023-08-01] MEDS: Atorvastatin Calcium 40 MG TABLET PO (20:53)
[2023-08-01] MEDS: 0.9 % Sodium Chloride Flush 3 ML SYRINGE IVFLUSH (20:54)
[2023-08-01] MEDS: Gabapentin 300 MG CAPSULE PO (20:54)
[2023-08-02] VITALS (7 sets, daily range): BP systolic 118–153; BP diastolic 60–72; PULSE 86–111; RESP 16–24; TEMP 36.3–37.2; O2SAT 89–94; BMI 26.6
[2023-08-02 06:29] LABS: MANUAL DIFF FLAG NO
[2023-08-02 06:32] LABS: Basophils Percent Auto 0.4 % (0-2); Eosinophils Percent Auto 0.1 % (0-4); Hematocrit 30.7 % (37.0-47.0); Hemoglobin 9.2 g/dl (12.0-16.0); Imm Gran Abs Auto 0.06 X10*3/uL (0.00-0.03); Imm Gran Pct Auto 0.5 % (0.0-0.4); Lymphocytes Absolute Auto 0.6 X10*3/uL (1.2-4.9); Lymphocytes Percent Auto 5.1 % (20-40); Mean Corpuscular Hemoglobin 25.4 pg (27.0-33.0); Mean Corpuscular Volume 84.8 fL (80.0-98.0); Mean Platelet Volume 9.5 fL (9.4-12.3); Monocytes Percent Auto 8.8 % (2-11); Neutrophils Absolute Auto 9.3 x10*3/uL (2.0-8.3); Neutrophils Percent Auto 85.1 % (45-73); Platelet Count 114 X10*3/uL (160-400); Red Blood Count 3.62 X10*6/uL (4.20-5.50); Red Cell Distribution Width 16.5 % (11.0-16.0)
[2023-08-02 06:54] LABS: Alanine Aminotransferase 16 U/L (0-31); Albumin Level 3.1 g/dL (3.5-5.0); Alkaline Phosphatase 56 U/L (39-117); Anion Gap 14 (12-20); Aspartate Amino Transferase 25 U/L (5-31); Bilirubin Total 0.4 mg/dL (0.0-1.0); Blood Urea Nitrogen 22 mg/dL (9-16); Calcium 6.7 mg/dL (8.4-10.2); Carbon Dioxide 12 mmol/L (22-29); Chloride 117 mmol/L (96-108); Estimated Glomerular Filt Rate 45; Glucose Fasting 69 mg/dL (60-99); Potassium 4.1 mmol/L (3.3-5.1); Sodium 139 mmol/L (135-145); Total Protein 5.7 g/dL (6.5-8.0)
[2023-08-02] MEDS: lisinopriL 10 MG TABLET PO (08:00)
[2023-08-02] MEDS: Gabapentin 300 MG CAPSULE PO ×3 (08:00→21:02)
[2023-08-02] MEDS: amLODIPine Besylate 10 MG TABLET PO (08:00)
[2023-08-02] MEDS: Clopidogrel Bisulfate 75 MG TABLET PO (08:00)
[2023-08-02] MEDS: Calcium + Vitamin D 250 MG TABLET 500 MG PO (08:00)
[2023-08-02] MEDS: Heparin Sodium,Porcine 5,000 UNIT/ML VIAL 5000 UNIT SUBCUT ×2 (08:01→21:02)
[2023-08-02] MEDS: Escitalopram Oxalate 10 MG TABLET 15 MG PO (08:01)
[2023-08-02] MEDS: Albuterol Sulfate (0.083%) 2.5 MG/3 ML VIAL.NEB INHALE (08:02)
[2023-08-02] MEDS: Sodium Bicarbonate 8.4% 50 MEQ/50 ML SYRINGE IVPUSH ×3 (08:02→21:02)
[2023-08-02] MEDS: 0.9 % Sodium Chloride Flush 3 ML SYRINGE IVFLUSH ×3 (08:04→21:04)
--- NOTE | 2023-08-02 14:32 | HO.PM.IMPN ---
Subjective Subjective Date of Service: 08/02/23 Interval History: Episode of shortness of breath this a.m. requiring increased O2. Responded well to breathing treatment. Review of Systems Denies chest pain Denies shortness of breath Denies nausea vomiting admits diarrhea Denies fever chills Physical Exam Vital Signs: Vital Signs: Last Vital Signs Temp 98 F 08/02/23 07:00 Pulse 105 H 08/02/23 14:15 Resp 22 H 08/02/23 14:15 BP 127/60 08/02/23 14:15 Pulse Ox 92 08/02/23 14:15 O2 Del Method Nasal Cannula 08/02/23 14:15 O2 Flow Rate 4 08/02/23 14:15 BMI result Body Mass Index 26.6 Const: Other: Awake alert no acute distress Resp: Other: Clear to auscultation bilaterally no rales rhonchi or wheezes GI: Other: Soft nontender nondistended normoactive bowel sounds Extrem: Other: No edema bilaterally Objective Data Active Medications Acetaminophen (Acetaminophen 325 Mg Tablet) 650 mg PO Q6H PRN PRN Reason: Pain, Mild (Pain Scale 1-3) Albuterol Sulfate (Albuterol Sulfate (0.083%) 2.5 Mg/3 Ml Vial.Neb) 2.5 mg INHALE Q4H PRN PRN Reason: Shortness of Breath/Wheezing Last Admin: 08/02/23 08:02 Dose: 2.5 mg Documented By: GREG Amlodipine Besylate (Amlodipine Besylate 10 Mg Tablet) 10 mg PO DAILY [facility]; Protocol Last Admin: 08/02/23 08:00 Dose: 10 mg Documented By: GALILEA Atorvastatin Calcium (Atorvastatin Calcium 40 Mg Tablet) 40 mg PO BEDTIME [facility] Last Admin: 08/01/23 20:53 Dose: 40 mg Documented By: MARIA TERESA Azithromycin (Azithromycin 500 Mg Tablet) 500 mg PO Q24H [facility] Calcium Carbonate/Cholecalciferol (Calcium + Vitamin D 250 Mg Tablet) 500 mg PO DAILY [facility] Last Admin: 08/02/23 08:00 Dose: 500 mg Documented By: GALILEA Clopidogrel Bisulfate (Clopidogrel Bisulfate 75 Mg Tablet) 75 mg PO DAILY [facility] Last Admin: 08/02/23 08:00 Dose: 75 mg Documented By: GALILEA Docusate Sodium (Docusate Sodium 100 Mg Capsule) 100 mg PO DAILY PRN PRN Reason: Constipation Escitalopram Oxalate (Escitalopram Oxalate 10 Mg Tablet) 15 mg PO DAILY [facility] Last Admin: 08/02/23 08:01 Dose: 15 mg Documented By: GALILEA Gabapentin (Gabapentin 300 Mg Capsule) 300 mg PO TID [facility] Last Admin: 08/02/23 08:00 Dose: 300 mg Documented By: GALILEA Heparin Sodium (Porcine) (Heparin Sodium,Porcine 5,000 Unit/Ml Vial) 5,000 unit SUBCUT Q12H [facility] Last Admin: 08/02/23 08:01 Dose: 5,000 unit Documented By: GALILEA Ceftriaxone Sodium 1 gm/ (Sodium Chloride) 50 mls @ 100 mls/hr IV Q24H [facility] Lisinopril (Lisinopril 10 Mg Tablet) 10 mg PO DAILY [facility]; Protocol Last Admin: 08/02/23 08:00 Dose: 10 mg Documented By: GALILEA Non-Formulary Medication (Buprenorphine) 1 patch TOPICAL TH [facility] Ondansetron HCl (Ondansetron Hcl 4 Mg/2 Ml Vial) 4 mg IVPUSH Q8H PRN PRN Reason: Nausea and Vomiting Sodium Bicarbonate (Sodium Bicarbonate 8.4% 50 Meq/50 Ml Syringe) 50 meq IVPUSH TID [facility] Stop: 08/02/23 21:01 Last Admin: 08/02/23 08:02 Dose: 50 meq Documented By: GALILEA Sodium Chloride (0.9 % Sodium Chloride Flush 3 Ml Syringe) 3 ml IVFLUSH QSHIFT [facility] Last Admin: 08/02/23 08:04 Dose: 3 ml Documented By: GALILEA Labs 08/02/23 06:10 08/02/23 06:10 Labs: Laboratory Results - last 24 hr 07/31/23 08/02/23 22:56 06:10 MCV 84.8 MCH 25.4 L MCHC 30.0 L RDW 16.5 H Plt Count 114 L MPV 9.5 Immature Gran % (Auto) 0.5 H Neut % (Auto) 85.1 H Lymph % (Auto) 5.1 L [place] % (Auto) 8.8 Eos % (Auto) 0.1 Baso % (Auto) 0.4 Lymph # (Auto) 0.6 L [place] # (Auto) 1.0 Eos # (Auto) 0.0 Baso # (Auto) 0.0 Abs Immat Gran (auto) 0.06 H Absolute Neuts (auto) 9.3 H Absolute Nucleated RBC 0.000 Nucleated RBC % (auto) 0.0 Anion Gap 14 Estim Creat Clear Calc 36.0 Estimated GFR 45 Fasting Glucose 69 Calcium 6.7 L Total Bilirubin 0.4 AST 25 ALT 16 Alkaline Phosphatase 56 Total Protein 5.7 L Albumin 3.1 L Stl C. cayetanensis PCR Cancelled Stool Rotavirus A PCR Cancelled Stl Adenov F 40/41 PCR Cancelled Stool Astrovirus (PCR) Cancelled Stool Campylobacter PCR Cancelled Stool Cryptosporidium PCR Cancelled Stl Sh Tox Pr E STEC PCR Cancelled Stool E coli O157 PCR Cancelled Stl Enterotoxigenic E PCR Cancelled Stool EPEC (PCR) Cancelled Stool EAEC (PCR) Cancelled Stl E. histolytica PCR Cancelled Stool Giardia Lamblia PCR Cancelled Stl P. shigelloides PCR Cancelled Stool Salmonella PCR Cancelled Stool Sapovirus (PCR) Cancelled Stl Shigella/EIEC PCR Cancelled St Y.enterocolitica PCR Cancelled Stool Vibrio (PCR) Cancelled Stl Vibrio cholerae PCR Cancelled Stl Norovirus GI/GII PCR Cancelled Microbiology Microbiology Results: Microbiology 07/31/23 Unknown Urine Culture - Final Urine clean catch - Urine oconnor top Assessment and Plan (1) Syncope: Status: Acute (2) BENNETT (acute kidney injury): Status: Acute (3) Hypoxia: Status: Acute Plan 78-year-old female with history of osteoporosis, CKD stage 3, NICHO on CPAP, COPD, hypertension, chronic low back pain, history of CVA, history polio admitted for BENNETT and syncope 1.Syncope -likely 2nd to volume depletion secondary to acute diarrhea -resolving... Will hold IV fluids -follow clinically 2.Acute kidney injury -returned to baseline -follow renals/divalents 3.Acute diarrhea -check GI panel ...slowly improving -C diff negative -supportive care 3.Acute hypoxemic respiratory failure -chest x-ray with questionable new bilateral basilar pneumonias -ceftriaxone/azithromycin (1) -titrate O2 as tolerated 4.COPD -no acute exacerbation -albuterol p.r.n. 5.Hypertension -acceptable control off therapies -add back as appropriate 4.Chronic opiate dependence -continue buprenorphine Heparin Full code Patient requires ongoing hospitalization for volume replacement to treat acute kidney injury and to support ongoing diarrhea Time Spent With Patient Time: Total time managing care of this patient today ____ minutes. Quality Stroke Does the patient have a stroke diagnosis?: No VTE Prior VTE?: No VTE Risk Level:: Medical - moderate - high VTE Device Contraindication: Treatment Not Indicated VTE Drug Contraindication: N/A - Med Ordered
[2023-08-02] MEDS: Acetaminophen 325 MG TABLET 650 MG PO (14:49)
[2023-08-02] MEDS: Azithromycin 500 MG TABLET PO (14:49)
[2023-08-02] MEDS: cefTRIAXone sodium 1 GM in 0.9 % Sodium Chloride 50 ML IV (14:50)
--- NOTE | 2023-08-02 16:14 | MHC.CM.PN ---
Per MD rounds Patient is not ready to discharge. O2 demand has increased. A CXR ordered. DP home self care. Patient will arrange for transport home.
[2023-08-02] MEDS: Atorvastatin Calcium 40 MG TABLET PO (21:02)
[2023-08-02] MEDS: ondansetron HCL 4 MG/2 ML VIAL IVPUSH (22:04)
--- NOTE | 2023-08-03 | ECG_ITS ---
Test Reason : ck rhythm Blood Pressure : / mmHG Vent. Rate : 098 BPM Atrial Rate : 098 BPM P-R Int : 158 ms QRS Dur : 086 ms QT Int : 384 ms P-R-T Axes : 054 -23 043 degrees QTc Int : 490 ms Normal sinus rhythm Nonspecific ST and T wave abnormality Prolonged QT Abnormal ECG When compared with ECG of 31-JUL-2023 15:45, Vent. rate has increased BY 39 BPM Nonspecific T wave abnormality now evident in Anterolateral leads Referred By: Sixto Narayanan Electronically Signed By:DEL PARSONS
[2023-08-03 01:07] VITALS: BP 131/63; PULSE 95; RESP 20; TEMP 37.7; O2SAT 93
[2023-08-03] MEDS: Acetaminophen 325 MG TABLET 650 MG PO ×2 (01:37→10:51)
[2023-08-03 06:30] LABS: MANUAL DIFF FLAG NO
[2023-08-03 06:38] LABS: Basophils Percent Auto 0.3 % (0-2); Eosinophils Percent Auto 0.1 % (0-4); Hematocrit 29.4 % (37.0-47.0); Hemoglobin 9.4 g/dl (12.0-16.0); Imm Gran Abs Auto 0.13 X10*3/uL (0.00-0.03); Imm Gran Pct Auto 0.9 % (0.0-0.4); Lymphocytes Absolute Auto 0.6 X10*3/uL (1.2-4.9); Lymphocytes Percent Auto 3.8 % (20-40); Mean Corpuscular Hemoglobin 25.8 pg (27.0-33.0); Mean Corpuscular Volume 80.8 fL (80.0-98.0); Mean Platelet Volume 9.7 fL (9.4-12.3); Monocytes Absolute Auto 1.1 X10*3/uL (0.1-1.2); Monocytes Percent Auto 7.8 % (2-11); Neutrophils Absolute Auto 12.5 x10*3/uL (2.0-8.3); Neutrophils Percent Auto 87.1 % (45-73); Platelet Count 135 X10*3/uL (160-400); Red Blood Count 3.64 X10*6/uL (4.20-5.50); Red Cell Distribution Width 16.5 % (11.0-16.0); White Blood Count 14.3 X10*3/uL (4.8-10.8)
[2023-08-03 07:05] LABS: Alanine Aminotransferase 16 U/L (0-31); Albumin Level 2.8 g/dL (3.5-5.0); Alkaline Phosphatase 55 U/L (39-117); Anion Gap 13 (12-20); Aspartate Amino Transferase 22 U/L (5-31); Bilirubin Total 0.3 mg/dL (0.0-1.0); Blood Urea Nitrogen 16 mg/dL (9-16); Calcium 6.8 mg/dL (8.4-10.2); Carbon Dioxide 19 mmol/L (22-29); Chloride 110 mmol/L (96-108); Estimated Glomerular Filt Rate > 60; Glucose Fasting 95 mg/dL (60-99); Potassium 3.4 mmol/L (3.3-5.1); Sodium 139 mmol/L (135-145); Total Protein 5.6 g/dL (6.5-8.0)
[2023-08-03 08:00] VITALS: BP 112/69; PULSE 124; RESP 18; TEMP 36.3; O2SAT 92
[2023-08-03] MEDS: 0.9 % Sodium Chloride Flush 3 ML SYRINGE IVFLUSH ×3 (10:33→21:14)
[2023-08-03] MEDS: 0.9 % Sodium Chloride 1,000 ML 250 ML IVCONT (10:37)
[2023-08-03] MEDS: lisinopriL 10 MG TABLET PO (10:39)
[2023-08-03] MEDS: Clopidogrel Bisulfate 75 MG TABLET PO (10:40)
[2023-08-03] MEDS: Calcium + Vitamin D 250 MG TABLET 500 MG PO (10:40)
[2023-08-03] MEDS: amLODIPine Besylate 10 MG TABLET PO (10:40)
[2023-08-03] MEDS: Gabapentin 300 MG CAPSULE PO ×3 (10:40→21:18)
[2023-08-03] MEDS: Escitalopram Oxalate 10 MG TABLET 15 MG PO (10:41)
[2023-08-03] MEDS: Heparin Sodium,Porcine 5,000 UNIT/ML VIAL 5000 UNIT SUBCUT ×2 (10:43→21:18)
[2023-08-03] MEDS: Azithromycin 500 MG TABLET PO (14:54)
[2023-08-03] MEDS: Lidocaine 4 % Patch ADH..PATCH 1 PATCH TRANSDERMA (14:54)
[2023-08-03] MEDS: cefTRIAXone sodium 1 GM in 0.9 % Sodium Chloride 50 ML IV (14:54)
--- NOTE | 2023-08-03 15:28 | P.PNIM_ITS ---
Subjective Subjective Date of Service: 08/03/23 Interval History: Diarrhea persist. Shortness of breath somewhat improved today. IV fluids held; patient slightly tachycardic. Review of Systems Denies chest pain Denies shortness of breath Denies nausea vomiting admits diarrhea Denies fever chills Physical Exam 2 Vital Signs: Vital Signs: Last Vital Signs Temp 97.4 F 08/03/23 08:00 Pulse 124 H 08/03/23 08:00 Resp 18 08/03/23 08:00 BP 112/69 08/03/23 08:00 Pulse Ox 92 08/03/23 08:00 O2 Del Method Room Air 08/03/23 08:00 O2 Flow Rate 4 08/03/23 01:07 BMI result Body Mass Index 26.6 Const: Other: Awake alert no acute distress Resp: Other: Clear to auscultation bilaterally no rales rhonchi or wheezes GI: Other: Soft nontender nondistended normoactive bowel sounds Extrem: Other: No edema bilaterally Objective Data Active Medications Acetaminophen (Acetaminophen 325 Mg Tablet) 650 mg PO Q6H PRN PRN Reason: Pain, Mild (Pain Scale 1-3) Last Admin: 08/03/23 10:51 Dose: 650 mg Documented By: ANGELIQUE Albuterol Sulfate (Albuterol Sulfate (0.083%) 2.5 Mg/3 Ml Vial.Neb) 2.5 mg INHALE Q4H PRN PRN Reason: Shortness of Breath/Wheezing Last Admin: 08/02/23 08:02 Dose: 2.5 mg Documented By: GREG Amlodipine Besylate (Amlodipine Besylate 10 Mg Tablet) 10 mg PO DAILY [facility]; Protocol Last Admin: 08/03/23 10:40 Dose: 10 mg Documented By: ANGELIQUE Atorvastatin Calcium (Atorvastatin Calcium 40 Mg Tablet) 40 mg PO BEDTIME [facility] Last Admin: 08/02/23 21:02 Dose: 40 mg Documented By: MARIA TERESA Azithromycin (Azithromycin 500 Mg Tablet) 500 mg PO Q24H [facility] Last Admin: 08/03/23 14:54 Dose: 500 mg Documented By: GALILEA Calcium Carbonate/Cholecalciferol (Calcium + Vitamin D 250 Mg Tablet) 500 mg PO DAILY [facility] Last Admin: 08/03/23 10:40 Dose: 500 mg Documented By: ANGELIQUE Clopidogrel Bisulfate (Clopidogrel Bisulfate 75 Mg Tablet) 75 mg PO DAILY [facility] Last Admin: 08/03/23 10:40 Dose: 75 mg Documented By: ANGELIQUE Docusate Sodium (Docusate Sodium 100 Mg Capsule) 100 mg PO DAILY PRN PRN Reason: Constipation Escitalopram Oxalate (Escitalopram Oxalate 10 Mg Tablet) 15 mg PO DAILY [facility] Last Admin: 08/03/23 10:41 Dose: 15 mg Documented By: ANGELIQUE Gabapentin (Gabapentin 300 Mg Capsule) 300 mg PO TID [facility] Last Admin: 08/03/23 14:54 Dose: 300 mg Documented By: GALILEA Heparin Sodium (Porcine) (Heparin Sodium,Porcine 5,000 Unit/Ml Vial) 5,000 unit SUBCUT Q12H [facility] Last Admin: 08/03/23 10:43 Dose: 5,000 unit Documented By: ANGELIQUE Ceftriaxone Sodium 1 gm/ (Sodium Chloride) 50 mls @ 100 mls/hr IV Q24H [facility] Last Admin: 08/03/23 14:54 Dose: 100 mls/hr Documented By: GALILEA Lidocaine (Lidocaine 4 % Patch Adh..Patch) 1 patch TRANSDERMA DAILY [facility]; Protocol Last Admin: 08/03/23 14:54 Dose: 1 patch Documented By: GALILEA Lisinopril (Lisinopril 10 Mg Tablet) 10 mg PO DAILY [facility]; Protocol Last Admin: 08/03/23 10:39 Dose: 10 mg Documented By: ANGELIQUE Comments: 144/64 110 Non-Formulary Medication (Buprenorphine) 1 patch TOPICAL [facility] Ondansetron HCl (Ondansetron Hcl 4 Mg/2 Ml Vial) 4 mg IVPUSH Q8H PRN PRN Reason: Nausea and Vomiting Last Admin: 08/02/23 22:04 Dose: 4 mg Documented By: MARIA TERESA Sodium Chloride (0.9 % Sodium Chloride Flush 3 Ml Syringe) 3 ml IVFLUSH QSHIFT [facility] Last Admin: 08/03/23 14:55 Dose: 3 ml Documented By: GALILEA Labs 08/03/23 06:22 08/03/23 06:22 Labs: Laboratory Results - last 24 hr 08/03/23 06:22 MCV 80.8 MCH 25.8 L MCHC 32.0 RDW 16.5 H Plt Count 135 L MPV 9.7 Immature Gran % (Auto) 0.9 H Neut % (Auto) 87.1 H Lymph % (Auto) 3.8 L [place] % (Auto) 7.8 Eos % (Auto) 0.1 Baso % (Auto) 0.3 Lymph # (Auto) 0.6 L [place] # (Auto) 1.1 Eos # (Auto) 0.0 Baso # (Auto) 0.0 Abs Immat Gran (auto) 0.13 H Absolute Neuts (auto) 12.5 H Absolute Nucleated RBC 0.000 Nucleated RBC % (auto) 0.0 Anion Gap 13 Estim Creat Clear Calc 49.0 Estimated GFR > 60 Fasting Glucose 95 Calcium 6.8 L Total Bilirubin 0.3 AST 22 ALT 16 Alkaline Phosphatase 55 Total Protein 5.6 L Albumin 2.8 L Microbiology Microbiology Results: Microbiology 07/31/23 Unknown Urine Culture - Final Urine clean catch - Urine oconnor top Assessment and Plan (1) Hypoxia: Status: Acute (2) CKD (chronic kidney disease) stage 3, GFR 30-59 ml/min: Status: Acute (3) Diarrhea: Status: Acute Plan 78-year-old female with history of osteoporosis, CKD stage 3, NICHO on CPAP, COPD, hypertension, chronic low back pain, history of CVA, history polio admitted for BENNETT and syncope 1.Acute hypoxemic respiratory failure -chest x-ray with questionable new bilateral basilar pneumonias -ceftriaxone/azithromycin (2) -titrate O2 as tolerated 2.Acute diarrhea -GI panel pending-C diff negative -GI consult -supportive care with IV fluids 3.Acute kidney injury -returned to baseline -follow renals/divalents 4.COPD -no acute exacerbation -albuterol p.r.n. 5.Hypertension -acceptable control off therapies -add back as appropriate 4.Chronic opiate dependence -continue buprenorphine Heparin Full code Patient requires ongoing hospitalization for volume replacement to treat acute kidney injury and to support ongoing diarrhea Time Spent With Patient Time: Total time managing care of this patient today ____ minutes. Quality Stroke Does the patient have a stroke diagnosis?: No VTE Prior VTE?: No VTE Risk Level:: Medical - moderate - high VTE Device Contraindication: Treatment Not Indicated VTE Drug Contraindication: N/A - Med Ordered
[2023-08-03 15:32] VITALS: BP 157/70; PULSE 101; RESP 20; TEMP 37.3; O2SAT 93
[2023-08-03 16:58] VITALS: PULSE 103; O2SAT 90
[2023-08-03 20:00] VITALS: BP 171/73; PULSE 100; RESP 20; TEMP 36.1; O2SAT 92
--- NOTE | 2023-08-03 20:18 | P.CNGI_ITS ---
History of Present Illness Data of Consult Service Date: 08/03/23 Requesting physician: Sixto Narayanan Primary Care Provider: Sally Villagomez MD HPI Reason for consult: diarrhea 78-year-old female with history of osteoporosis, CKD stage 3, NICHO on CPAP, COPD, hypertension, chronic low back pain, history of CVA, history polio who I am seeing for eval of diarrhea. 3 days ago developed 10+ episodes of watery diarrhea that has persisted this admission. She has diarrhea few times a day for many years but this is worse than her baseline. Denies any melena or hematochezia. No associated abdominal pain, nausea, vomiting. Denies eating any bad foods, recent antibiotic use, recent travel. No one at home has similar symptoms. Denies any fevers, chills, cough, upper respiratory symptoms, urinary symptoms, shortness of breath, palpitations, or chest pain. She had been having syncopal episodes and falls at home as well. She was also placed on antibiotics for COPD exacerbation. UA with pos leuk esterase but culutre neg, C diff also negative. She had prior work up for diarrhea with egd/colo at [facility] [id number] for microscopic colitis Imaging: Chest CT: emphysema with minimal chronic bilateral lower lobe pneumonia or resolving infiltrate/atelectasis but no pleural effusion. CT abdomen/pelvis: NO acute process, moderate constipation without obstruction and small hiatal hernia. There was also noted to be compression fractures at T10 and 11 with cement augmentation and exaggerated thoracic kyphosis in the lower dorsal spine. D-dimer elevated and subsequent V/Q scan was normal without evidence of PE. [facility], [facility] Past Medical History Medical History (Updated 08/03/23 @ 15:32 by Sixto Narayanan DO) Diarrhea Annual physical exam Weight loss Vitamin D deficiency Vertigo Anemia Obstructive sleep apnea Carotid stenosis, right Venous insufficiency of both lower extremities Status post CVA Compression fracture Osteoporosis CKD (chronic kidney disease) stage 3, GFR 30-59 ml/min History of IBS Lumbar stenosis Spondyloarthropathy Hyperlipidemia Depression COPD (chronic obstructive pulmonary disease) HTN (hypertension) Family History Family History Father No problems noted. Mother Colon cancer Sister Metastatic cancer Surgical History Surgical History History of esophagogastroduodenoscopy (EGD) History of abdominal surgery Hx of cholecystectomy History of shoulder surgery History of oophorectomy History of hysterectomy H/O colonoscopy Social History Social History Household Members: Family Household Members Other:: 1 [facility] Do you presently have visiting nurse or other home services: No Alcohol intake: never Patient Tobacco Use Status: Never used Tobacco e-Cigarette/Vaping Use: Never Used Second Hand Smoke Exposure: No service: No Current occupational status: retired Cognitive needs: No Hearing needs: No Vision needs: No Meds Allergies Allergy/AdvReac Type Severity Reaction Status Date / Time No Known Allergies Allergy Verified 07/31/23 14:17 [No Known Allergies*] Active Medications: Current Medications Acetaminophen (Acetaminophen 325 Mg Tablet) 650 mg PO Q6H PRN PRN Reason: Pain, Mild (Pain Scale 1-3) Last Admin: 08/03/23 10:51 Dose: 650 mg Albuterol Sulfate (Albuterol Sulfate (0.083%) 2.5 Mg/3 Ml Vial.Neb) 2.5 mg INHALE Q4H PRN PRN Reason: Shortness of Breath/Wheezing Last Admin: 08/02/23 08:02 Dose: 2.5 mg Amlodipine Besylate (Amlodipine Besylate 10 Mg Tablet) 10 mg PO DAILY [facility]; Protocol Last Admin: 08/03/23 10:40 Dose: 10 mg Atorvastatin Calcium (Atorvastatin Calcium 40 Mg Tablet) 40 mg PO BEDTIME KEVIN Last Admin: 08/02/23 21:02 Dose: 40 mg Azithromycin (Azithromycin 500 Mg Tablet) 500 mg PO Q24H KEVIN Last Admin: 08/03/23 14:54 Dose: 500 mg Calcium Carbonate/Cholecalciferol (Calcium + Vitamin D 250 Mg Tablet) 500 mg PO DAILY KEVIN Last Admin: 08/03/23 10:40 Dose: 500 mg Clopidogrel Bisulfate (Clopidogrel Bisulfate 75 Mg Tablet) 75 mg PO DAILY KEVIN Last Admin: 08/03/23 10:40 Dose: 75 mg Docusate Sodium (Docusate Sodium 100 Mg Capsule) 100 mg PO DAILY PRN PRN Reason: Constipation Escitalopram Oxalate (Escitalopram Oxalate 10 Mg Tablet) 15 mg PO DAILY [facility] Last Admin: 08/03/23 10:41 Dose: 15 mg Gabapentin (Gabapentin 300 Mg Capsule) 300 mg PO TID [facility] Last Admin: 08/03/23 14:54 Dose: 300 mg Heparin Sodium (Porcine) (Heparin Sodium,Porcine 5,000 Unit/Ml Vial) 5,000 unit SUBCUT Q12H [facility] Last Admin: 08/03/23 10:43 Dose: 5,000 unit Ceftriaxone Sodium 1 gm/ (Sodium Chloride) 50 mls @ 100 mls/hr IV Q24H [facility] Last Infusion: 08/03/23 15:43 Dose: Infused Lidocaine (Lidocaine 4 % Patch Adh..Patch) 1 patch TRANSDERMA DAILY [facility]; Protocol Last Admin: 08/03/23 14:54 Dose: 1 patch Lisinopril (Lisinopril 10 Mg Tablet) 10 mg PO DAILY [facility]; Protocol Last Admin: 08/03/23 10:39 Dose: 10 mg Non-Formulary Medication (Buprenorphine) 1 patch TOPICAL [facility] Ondansetron HCl (Ondansetron Hcl 4 Mg/2 Ml Vial) 4 mg IVPUSH Q8H PRN PRN Reason: Nausea and Vomiting Last Admin: 08/02/23 22:04 Dose: 4 mg Sodium Chloride (0.9 % Sodium Chloride Flush 3 Ml Syringe) [address] [facility] Last Admin: 08/03/23 14:55 Dose: 3 ml Home Medications Medication Instructions Recorded Confirmed Last Taken Type etanercept 50 mg/mL (1 mL) 50 mg subcut BAH 08/21/20 08/01/23 07/30/23 History subcutaneous pen injector lisinopril 10 mg tablet 10 mg PO DAILY 08/21/20 08/01/23 Unknown History amlodipine 10 mg tablet 10 mg PO DAILY 01/06/21 08/01/23 Unknown History gabapentin 300 mg capsule 300 mg PO TID 06/30/22 08/01/23 Unknown History buprenorphine 15 mcg/hour weekly 1 patch topical TH 02/01/23 08/01/23 07/27/23 History transdermal patch atorvastatin 80 mg tablet 40 mg PO BEDTIME 08/01/23 08/01/23 Unknown History zolpidem 5 mg tablet 5 mg PO BEDTIME PRN Sleep 08/01/23 08/01/23 Unknown History Physical Exam 2 Vital Signs: Vital Signs: Last Vital Signs Temp 99.1 F 08/03/23 15:32 Pulse 103 H 08/03/23 16:58 Resp 20 08/03/23 15:32 BP 157/70 H 08/03/23 15:32 Pulse Ox 90 L 08/03/23 16:58 O2 Del Method Nasal Cannula 08/03/23 16:58 O2 Flow Rate 3 08/03/23 16:58 BMI result Body Mass Index 26.6 EXAM: GENERAL: The patient is well developed and nontoxic. VITAL SIGNS:see workflow HEENT: Nonicteric sclerae, PERRLA, EOMI. Oropharynx clear. Moist mucous membranes. Conjunctivae appear well perfused. No thyroid mass. CHEST: Chest wall is nontender. HEART: Regular rate and rhythm without murmurs. LUNGS: Clear to auscultation bilaterally but diminished BS b/l ABDOMEN: Soft, positive bowel sounds, nontender, no organomegaly.no flank tenderness SKIN: No rash, no excessive bruising, petechiae, or purpura. NEUROLOGIC: Cranial nerves II-XII intact without motor/sensory deficit. Psych: Appearance: grossly normal Results Labs 08/03/23 06:22 08/03/23 06:22 Labs: Short CBC 08/03/23 Range/Units 06:22 WBC 14.3 H (4.8-10.8) X10*3/uL Hgb 9.4 L (12.0-16.0) g/dl Hct 29.4 L (37.0-47.0) % Plt Count 135 L (160-400) X10*3/uL BMP 08/03/23 06:22 Sodium 139 Potassium 3.4 Chloride 110 H Carbon Dioxide 19 L BUN 16 Creatinine 0.86 Calcium 6.8 L Liver Function 08/03/23 Range/Units 06:22 Total Bilirubin 0.3 (0.0-1.0) mg/dL AST 22 (5-31) U/L ALT 16 (0-31) U/L Alkaline Phosphatase 55 (39-117) U/L Albumin 2.8 L (3.5-5.0) g/dL Microbiology Microbiology Results: Microbiology 07/31/23 Unknown Urine clean catch - Urine oconnor top Urine Culture - Final Imaging CT scan - abdomen: Attestation: I personally reviewed and interpreted this imaging study as follows: (wedge fractures, severe atherosclerosis, renal atrophy ) Assessment and Plan (1) Diarrhea: Status: Acute (2) Anemia: Status: Acute Plan 1/ Acute on chronic diarrhea severe enough to cause dehydration, syncope, c diff neg, possible pnumeonia or copd exacerbation on top of this 2/ Chronic anemia, uncertain etiology based on current data, maybe malabsorptive or nutritional PLAN; 1/ check celiac labs, folate, b12, and ferritin 2/ check GI stool panel 3/ per discussion w/ Dr Narayanan he maybe giving steroids, if diarrhea persists and GI panel neg then can trial welchol or cholestyramine, if worsening pneumonia check for legionella or strep pneumo 4/ if sx perist then can consider egd and colo repeat Time Spent With Patient Time: Total time managing care of this patient today ____ minutes. Procedures Date of Service Date of Service: 08/03/23
[2023-08-03] MEDS: Atorvastatin Calcium 40 MG TABLET PO (21:18)
--- NOTE | 2023-08-04 | ECG_ITS ---
Test Reason : tachycardia Blood Pressure : / mmHG Vent. Rate : 131 BPM Atrial Rate : 000 BPM P-R Int : 000 ms QRS Dur : 084 ms QT Int : 332 ms P-R-T Axes : 000 -20 068 degrees QTc Int : 490 ms Atrial fibrillation with rapid ventricular response Nonspecific ST and T wave abnormality Abnormal ECG When compared with ECG of 03-AUG-2023 11:52, Atrial fibrillation has replaced Sinus rhythm ST now depressed in Anterolateral leads Referred By: Jey Daily Electronically Signed By:DEL PARSONS
[2023-08-04] MEDS: Acetaminophen 325 MG TABLET 650 MG PO ×3 (00:04→19:56)
[2023-08-04] MEDS: traMADoL HCL 50 MG TABLET PO ×4 (00:21→21:13)
--- NOTE | 2023-08-04 01:10 | PM.EVENT ---
Event Note Date of Service: 08/04/23 Event Note: Patient with ?new-onset AFib with RVR overnight. Obtaining TSH and echocardiogram. Consulting Cardiology, appreciate assistance. Initiating IV diltiazem Time Spent With Patient Time: Total time managing care of this patient today ____ minutes.
[2023-08-04] MEDS: dilTIAZem HCL 50 MG/10 ML VIAL 15 MG IVPUSH ×2 (01:17→05:09)
[2023-08-04 02:05] LABS: Thyroid Stimulating Hormone 0.13 uIU/mL (0.32-4.0)
[2023-08-04 06:25] LABS: MANUAL DIFF FLAG NO
[2023-08-04 06:44] LABS: Basophils Percent Auto 0.2 % (0-2); Eosinophils Percent Auto 0.3 % (0-4); Hematocrit 29.9 % (37.0-47.0); Hemoglobin 9.4 g/dl (12.0-16.0); Imm Gran Abs Auto 0.08 X10*3/uL (0.00-0.03); Imm Gran Pct Auto 0.7 % (0.0-0.4); Lymphocytes Absolute Auto 0.4 X10*3/uL (1.2-4.9); Lymphocytes Percent Auto 3.6 % (20-40); Mean Corpuscular HGB Conc 31.4 g/dl (31.0-35.0); Mean Corpuscular Hemoglobin 25.5 pg (27.0-33.0); Mean Corpuscular Volume 81.3 fL (80.0-98.0); Mean Platelet Volume 9.1 fL (9.4-12.3); Monocytes Percent Auto 8.3 % (2-11); Neutrophils Absolute Auto 10.3 x10*3/uL (2.0-8.3); Neutrophils Percent Auto 86.9 % (45-73); Platelet Count 147 X10*3/uL (160-400); Red Blood Count 3.68 X10*6/uL (4.20-5.50); Red Cell Distribution Width 16.4 % (11.0-16.0); White Blood Count 11.8 X10*3/uL (4.8-10.8)
[2023-08-04 06:46] LABS: Alanine Aminotransferase 14 U/L (0-31); Albumin Level 2.8 g/dL (3.5-5.0); Alkaline Phosphatase 62 U/L (39-117); Anion Gap 14 (12-20); Aspartate Amino Transferase 23 U/L (5-31); Bilirubin Total 0.3 mg/dL (0.0-1.0); Blood Urea Nitrogen 11 mg/dL (9-16); Calcium 6.8 mg/dL (8.4-10.2); Carbon Dioxide 21 mmol/L (22-29); Chloride 106 mmol/L (96-108); Creatinine Clr Calc Pharmacy 53.4; Estimated Glomerular Filt Rate > 60; Glucose Fasting 92 mg/dL (60-99); Potassium 3.6 mmol/L (3.3-5.1); Sodium 137 mmol/L (135-145); Total Protein 5.6 g/dL (6.5-8.0)
--- NOTE | 2023-08-04 07:00 | CA_ITS ---
Transthoracic Echocardiogram Amended Patient (Last, First, Middle): Kandis Higgins A Gender: Female Date of : 1945 Age: 78 Procedure Date: 08/04/2023 Procedure Type: Transthoracic Echocardiogram [place] [facility] [place] Height: 160.02 cm Weight: 67.59 kg BSA: 1.71 m2 Heart Rate: 93 bpm BP: 171 / 73 mmHg Media Supervisor: CHERIE Vences MD: Brayan Daily MD Senior Programmer: Tanner Dodge MD Symptoms: AFib with RVR Study Quality: Adequate ECG Rhythm: Atrial Fibrillation Conclusions: - Normal left ventricular size and systolic function. There is mildly increased left ventricular wall thickness. The visually estimated ejection fraction is between 55-60%. - E/E prime ratio is >15, consistent with elevated filling pressures. - Normal right ventricular cavity size and systolic function. - There is mild anterior mitral leaflet thickening. - Normal right atrial pressure. Mild pulmonary hypertension is present. Findings Left Ventricle Normal left ventricular size and systolic function. There is mildly increased left ventricular wall thickness. The visually estimated ejection fraction is between 55-60%. There is no evidence of regional wall motion abnormalities. Abnormal diastolic function is noted. Spectral Doppler is indicative of an impaired relaxation filling pattern. E/E prime ratio is >15, consistent with elevated filling pressures. Right Ventricle Normal right ventricular cavity size and systolic function. Atria The left atrium is mildly dilated. The right atrium is normal in size. Aortic Valve There is a normal trileaflet aortic valve. There is no aortic valve stenosis. There is no aortic valve regurgitation. Mitral Valve There is mild anterior mitral leaflet thickening. There is no mitral valve regurgitation. There is no mitral valve stenosis. Pulmonic Valve Normal pulmonic valve structure and function. There is no pulmonic valve regurgitation. Tricuspid Valve Normal tricuspid valve structure. There is trace tricuspid valve regurgitation. The right ventricular systolic pressure is 36 mmHg. Normal right atrial pressure. Mild pulmonary hypertension is present. Great Vessels All visible segments of the aorta are normal in size. The visualized portions of the pulmonary artery and branches are normal. Venous The inferior vena cava is normal in size and collapses greater than 50% with inspiration. Pericardium/Pleural There is no evidence of pericardial effusion. Prior Study Comparison No significant change compared to prior study dated: 08/12/2022. Measurements 2D Linear Measurements IVSd: 1.11 0.6-0.9/0.6-1.0 cm LVIDd: 4.37 3.9-5.3/4.2-5.9 cm LVIDd Index: 2.56 2.4-3.2/2.2-3.1 cm/m2 LVIDs: 2.82 2.0-3.6 cm LVPWd: 1.29 0.7-1.1 cm LA Diam: 4.20 2.7-3.8/3.0-4.0 cm LAIDs Index: 2.46 1.5-2.3 cm/m2 LV Mass: 235.91 67-162/88-224 g LV Mass Index: 137.96 43-95/49-115 g/m2 LVOT Diam: 2.00 3.0+(-)1.3 cm 2D Volumes LA Vol: 32.80 2D Systolic Function EF 4C: 57.70 >55% EF 2C: 65.30 >55% EF BiP: 62.30 >55% Mitral Valve MV Pk E: 1.38 MV PK A: 1.29 MV Decel Time: 188.00 E/A: 1.10 E'Lateral: 7.51 E'Medial: 6.74 E/E' Med: 20.50 E/E' Lat: 18.40 PHT: 55.00 MVA PHT: 4.00 Decel Greer: 7.32 Aortic Valve AoV Pk Tucker: 1.37 AoV Mn Tucker: 1.01 AoV VTI: 0.22 AoV Pk Grad: 8.00 Aov Mn Grad: 5.00 CHIN Cont.VTI: 2.76 LVOT LVOT Pk Tucker: 1.03 LVOT Mn Tucker: 0.76 LVOT VTI: 0.19 LVOT Pk Grad: 4.00 LVOT Mn Grad: 3.00 LVOT Diam: 2.00 LVOT Area: 3.14 Diastolic Function MV Pk E: 1.38 MV Pk A: 1.29 E/A: 1.10 E'Medial: 6.74 E/E' Med: 20.50 E' Laterial: 7.51 E/E' Lat: 18.40 Right Ventricle TAPSE (mm): 27.30 TVS' Tucker: 17.50 Tricuspid Valve TR Pk Tucker: 2.87 TR Pk Grad: 33.00 RA Press: 3.00 RVSP: 36.00 Great Vessels Aorta Sinus of Valsalva: 3.30 2.0-3.5 cm Ao Asc: 3.30 2.1-3.4 cm Pulmonary Valve PV Pk Tucker: 1.07 Peak PV Grad: 5.00 Updated in Other Vendor System with Status of Final Tanner Dodge MD electronically signed on 08/14/2023 10:54:42 AM with status of Final
[2023-08-04 07:25] VITALS: BP 128/64; PULSE 90; RESP 20; TEMP 36.2; O2SAT 92
--- NOTE | 2023-08-04 07:26 | PC.NURSE ---
Addendum entered by Ioana Aguiar 08/04/23 07:33: After 04:30, pt's cardiac rhythm on the teley went from sinus tachy to Afib reaching 140s HR. Pt had no symptoms, no c/o of SOB or chest pain. MD Daily was notified of the situation. Another one time dose of IV diltiazem was ordered and given to pt. Pt's HR went down to the high 90s to 100s. Will continue to monitor pt's cardiac rhythm. Original Note: Approximately around 00:00 pt c/o of 9/10 pounding headache. At the same time the pt's cardiac rhythm on the teley was sinus tachy reaching 160s. PRN Tylenol was given per JAN. MD Daily was notified of the situation. One time dose of tramadol was ordered per JAN. EKG, labs, and one time dose of IV diltiazem was ordered. EKG showed new onset of AFIB with RVR per MD. Cardiology was consulted. IV diltiazem was given to pt per JAN with effect. Will continue to monitor pt's HR.
[2023-08-04 07:43] LABS: Hematocrit 29.4 % (37.0-47.0); Hemoglobin 9.4 g/dl (12.0-16.0); Mean Corpuscular Hemoglobin 25.6 pg (27.0-33.0); Mean Corpuscular Volume 80.1 fL (80.0-98.0); Mean Platelet Volume 9.1 fL (9.4-12.3); Platelet Count 141 X10*3/uL (160-400); Red Blood Count 3.67 X10*6/uL (4.20-5.50); Red Cell Distribution Width 16.5 % (11.0-16.0); White Blood Count 11.9 X10*3/uL (4.8-10.8)
[2023-08-04 07:49] LABS: INTERNATIONAL NORM RATIO 1.1 (0.9-1.1); Prothrombin Time 13.9 SEC (11.1-13.3)
[2023-08-04 07:51] LABS: Partial Thromboplastin Time 30.9 SEC (26.0-36.4)
[2023-08-04] MEDS: Lidocaine 4 % Patch ADH..PATCH 1 PATCH TRANSDERMA (08:46)
[2023-08-04] MEDS: Enoxaparin Sodium 80 MG/0.8 ML SYRINGE 70 MG SUBCUT ×2 (08:48→19:55)
[2023-08-04] MEDS: Gabapentin 300 MG CAPSULE PO ×3 (08:49→19:56)
[2023-08-04] MEDS: Escitalopram Oxalate 10 MG TABLET 15 MG PO (08:49)
[2023-08-04] MEDS: Calcium + Vitamin D 250 MG TABLET 500 MG PO (08:49)
[2023-08-04] MEDS: Clopidogrel Bisulfate 75 MG TABLET PO (08:49)
[2023-08-04] MEDS: lisinopriL 10 MG TABLET PO (08:49)
[2023-08-04] MEDS: amLODIPine Besylate 10 MG TABLET PO (08:50)
[2023-08-04] MEDS: 0.9 % Sodium Chloride Flush 3 ML SYRINGE IVFLUSH ×3 (08:53→19:56)
--- NOTE | 2023-08-04 11:50 | P.CONCA_ITS ---
History of Present Illness History of Present Illness Date of Service: 08/04/23 Requesting physician: Sixto Narayanan Chief complaint: acute hypoxia, pneumonia, diarrhea, henry Narrative: 78-year-old female who presented to hospital with shortness of breath and was done pneumonia and is on antibiotics. She also has diarrhea and kidney injury. She developed tachycardia is and 1 of her EKGs is concerning for atrial fibrillation. Currently she has sinus tachycardia with premature atrial complexes. She denying any significant shortness of breath currently. No chest discomfort. No palpitations. As mentioned admitted to hospital with pneumonia. [facility] Past Medical History Medical History (Updated 08/04/23 @ 17:14 by Sixto Narayanan DO) Diarrhea Annual physical exam Weight loss Vitamin D deficiency Vertigo Anemia Obstructive sleep apnea Carotid stenosis, right Venous insufficiency of both lower extremities Status post CVA Compression fracture Osteoporosis CKD (chronic kidney disease) stage 3, GFR 30-59 ml/min History of IBS Lumbar stenosis Spondyloarthropathy Hyperlipidemia Depression COPD (chronic obstructive pulmonary disease) HTN (hypertension) Family History Family History Father No problems noted. Mother Colon cancer Sister Metastatic cancer Surgical History Surgical History History of esophagogastroduodenoscopy (EGD) History of abdominal surgery Hx of cholecystectomy History of shoulder surgery History of oophorectomy History of hysterectomy H/O colonoscopy Social History Social History Household Members: Family Household Members Other:: 1 Housing: Condominium Do you presently have visiting nurse or other home services: No Alcohol intake: never Patient Tobacco Use Status: Never used Tobacco e-Cigarette/Vaping Use: Never Used Second Hand Smoke Exposure: No service: No Current occupational status: retired Cognitive needs: No Hearing needs: No Vision needs: No Meds Allergies Allergy/AdvReac Type Severity Reaction Status Date / Time No Known Allergies Allergy Verified 07/31/23 14:17 [No Known Allergies*] Active Medications: Current Medications Acetaminophen (Acetaminophen 325 Mg Tablet) 650 mg PO Q6H PRN PRN Reason: Pain, Mild (Pain Scale 1-3) Last Admin: 08/04/23 00:04 Dose: 650 mg Albuterol Sulfate (Albuterol Sulfate (0.083%) 2.5 Mg/3 Ml Vial.Neb) 2.5 mg INHALE Q4H PRN PRN Reason: Shortness of Breath/Wheezing Last Admin: 08/02/23 08:02 Dose: 2.5 mg Amlodipine Besylate (Amlodipine Besylate 10 Mg Tablet) 10 mg PO DAILY [facility]; Protocol Last Admin: 08/04/23 08:50 Dose: 10 mg Atorvastatin Calcium (Atorvastatin Calcium 40 Mg Tablet) 40 mg PO BEDTIME KEVIN Last Admin: 08/03/23 21:18 Dose: 40 mg Azithromycin (Azithromycin 500 Mg Tablet) 500 mg PO Q24H [facility] Last Admin: 08/03/23 14:54 Dose: 500 mg Calcium Carbonate/Cholecalciferol (Calcium + Vitamin D 250 Mg Tablet) 500 mg PO DAILY [facility] Last Admin: 08/04/23 08:49 Dose: 500 mg Clopidogrel Bisulfate (Clopidogrel Bisulfate 75 Mg Tablet) 75 mg PO DAILY [facility] Last Admin: 08/04/23 08:49 Dose: 75 mg Docusate Sodium (Docusate Sodium 100 Mg Capsule) 100 mg PO DAILY PRN PRN Reason: Constipation Enoxaparin Sodium (Enoxaparin Sodium 80 Mg/0.8 Ml Syringe) 70 mg 1 mg/kg (70 mg) SUBCUT Q12H [facility] Last Admin: 08/04/23 08:48 Dose: 70 mg Escitalopram Oxalate (Escitalopram Oxalate 10 Mg Tablet) 15 mg PO DAILY [facility] Last Admin: 08/04/23 08:49 Dose: 15 mg Gabapentin (Gabapentin 300 Mg Capsule) 300 mg PO TID [facility] Last Admin: 08/04/23 08:49 Dose: 300 mg Ceftriaxone Sodium 1 gm/ (Sodium Chloride) 50 mls @ 100 mls/hr IV Q24H [facility] Last Infusion: 08/03/23 15:43 Dose: Infused Lidocaine (Lidocaine 4 % Patch Adh..Patch) 1 patch TRANSDERMA DAILY [facility]; Protocol Last Admin: 08/04/23 08:46 Dose: 1 patch Lisinopril (Lisinopril 10 Mg Tablet) 10 mg PO DAILY [facility]; Protocol Last Admin: 08/04/23 08:49 Dose: 10 mg Non-Formulary Medication (Buprenorphine) 1 patch TOPICAL TH [facility] Ondansetron HCl (Ondansetron Hcl 4 Mg/2 Ml Vial) 4 mg IVPUSH Q8H PRN PRN Reason: Nausea and Vomiting Last Admin: 08/02/23 22:04 Dose: 4 mg Sodium Chloride (0.9 % Sodium Chloride Flush 3 Ml Syringe) 3 ml IVFLUSH QSHIFT [facility] Last Admin: 08/04/23 08:53 Dose: 3 ml Home Medications Medication Instructions Recorded Confirmed Last Taken Type etanercept 50 mg/mL (1 mL) 50 mg subcut [facility] 08/21/20 08/01/23 07/30/23 History subcutaneous pen injector lisinopril 10 mg tablet 10 mg PO DAILY 08/21/20 08/01/23 Unknown History amlodipine 10 mg tablet 10 mg PO DAILY 01/06/21 08/01/23 Unknown History gabapentin 300 mg capsule 300 mg PO TID 06/30/22 08/01/23 Unknown History buprenorphine 15 mcg/hour weekly 1 patch topical TH 02/01/23 08/01/23 07/27/23 History transdermal patch atorvastatin 80 mg tablet 40 mg PO BEDTIME 08/01/23 08/01/23 Unknown History zolpidem 5 mg tablet 5 mg PO BEDTIME PRN Sleep 08/01/23 08/01/23 Unknown History Physical Exam 2 Vital Signs: Vital Signs: Last Vital Signs Temp 97.2 F 08/04/23 07:25 Pulse 90 08/04/23 07:25 Resp 20 08/04/23 07:25 BP 128/64 08/04/23 07:25 Pulse Ox 92 08/04/23 07:25 O2 Del Method Nasal Cannula 08/04/23 07:25 O2 Flow Rate 3 08/04/23 07:25 BMI result Body Mass Index 26.6 GENERAL APPEARANCE: in no acute distress, pleasant. NECK: no carotid bruit, no jugular venous distention. SKIN: no suspicious lesions, warm and dry. HEART: no murmurs, regular rate and rhythm. Tachycardic. LUNGS: clear to auscultation bilaterally. ABDOMEN: soft, nontender. EXTREMITIES: no edema. PERIPHERAL PULSES: equal. NEUROLOGIC: No gross deficits, AAO X 3 Objective Labs and Meds 08/04/23 07:28 08/04/23 06:00 Lab results: Laboratory Results - last 24 hr 08/03/23 08/04/23 08/04/23 23:25 01:21 06:00 WBC 11.8 H RBC 3.68 L Hgb 9.4 L Hct 29.9 L MCV 81.3 MCH 25.5 L MCHC 31.4 RDW 16.4 H Plt Count 147 L MPV 9.1 L Immature Gran % (Auto) 0.7 H Neut % (Auto) 86.9 H Lymph % (Auto) 3.6 L [place] % (Auto) 8.3 Eos % (Auto) 0.3 Baso % (Auto) 0.2 Lymph # (Auto) 0.4 L [place] # (Auto) 1.0 Eos # (Auto) 0.0 Baso # (Auto) 0.0 Abs Immat Gran (auto) 0.08 H Absolute Neuts (auto) 10.3 H Absolute Nucleated RBC 0.000 Nucleated RBC % (auto) 0.0 PT INR APTT Sodium 137 Potassium 3.6 Chloride 106 Carbon Dioxide 21 L Anion Gap 14 BUN 11 Creatinine 0.79 Estim Creat Clear Calc 53.4 Estimated GFR > 60 Fasting Glucose 92 Calcium 6.8 L Total Bilirubin 0.3 AST 23 ALT 14 Alkaline Phosphatase 62 Total Protein 5.6 L Albumin 2.8 L TSH 0.13 L Stl C. cayetanensis PCR Cancelled Stool Rotavirus A PCR Cancelled Stl Adenov F 40/41 PCR Cancelled Stool Astrovirus (PCR) Cancelled Stool Campylobacter PCR Cancelled Stool Cryptosporidium PCR Cancelled Stl Sh Tox Pr E STEC PCR Cancelled Stool E coli O157 PCR Cancelled Stl Enterotoxigenic E PCR Cancelled Stool EPEC (PCR) Cancelled Stool EAEC (PCR) Cancelled Stl E. histolytica PCR Cancelled Stool Giardia Lamblia PCR Cancelled Stl P. shigelloides PCR Cancelled Stool Salmonella PCR Cancelled Stool Sapovirus (PCR) Cancelled Stl Shigella/EIEC PCR Cancelled St Y.enterocolitica PCR Cancelled Stool Vibrio (PCR) Cancelled Stl Vibrio cholerae PCR Cancelled Stl Norovirus GI/GII PCR Cancelled 08/04/23 07:28 WBC 11.9 H RBC 3.67 L Hgb 9.4 L Hct 29.4 L MCV 80.1 MCH 25.6 L MCHC 32.0 RDW 16.5 H Plt Count 141 L MPV 9.1 L Immature Gran % (Auto) Neut % (Auto) Lymph % (Auto) [place] % (Auto) Eos % (Auto) Baso % (Auto) Lymph # (Auto) [place] # (Auto) Eos # (Auto) Baso # (Auto) Abs Immat Gran (auto) Absolute Neuts (auto) Absolute Nucleated RBC 0.000 Nucleated RBC % (auto) 0.0 PT 13.9 H D INR 1.1 APTT 30.9 Sodium Potassium Chloride Carbon Dioxide Anion Gap BUN Creatinine Estim Creat Clear Calc Estimated GFR Fasting Glucose Calcium Total Bilirubin AST ALT Alkaline Phosphatase Total Protein Albumin TSH Stl C. cayetanensis PCR Stool Rotavirus A PCR Stl Adenov F 40/41 PCR Stool Astrovirus (PCR) Stool Campylobacter PCR Stool Cryptosporidium PCR Stl Sh Tox Pr E STEC PCR Stool E coli O157 PCR Stl Enterotoxigenic E PCR Stool EPEC (PCR) Stool EAEC (PCR) Stl E. histolytica PCR Stool Giardia Lamblia PCR Stl P. shigelloides PCR Stool Salmonella PCR Stool Sapovirus (PCR) Stl Shigella/EIEC PCR St Y.enterocolitica PCR Stool Vibrio (PCR) Stl Vibrio cholerae PCR Stl Norovirus GI/GII PCR Assessment and Plan (1) Atrial fibrillation with rapid ventricular response: Status: Acute Plan 78-year-old female who presented the hospital with pneumonia and diarrhea. She has been noticed to have runs of tachycardia which are concerning for atrial fibrillation. So far telemetry is showing sinus tachycardia with premature atrial complexes but 1 of her EKG is concerning for AFib. She previously had strokes and has stroke risk at this point with high chads Vasc score. She also has carotid stenosis. Adding metoprolol 25 mg twice a day. We monitor to see if she has frequent atrial fibrillation and if she does I think we should anticoagulate her. I think this is linked with pneumonia and dehydration at this point in but she has significant stroke risk. In that case I would stop the Plavix. Six Thank you for allowing me to participate in the care of your patient. Please feel free to contact me if you have any questions. Time Spent With Patient Time: Total time managing care of this patient today ____ minutes. Procedures Date of Service Date of Service: 08/04/23
[2023-08-04] MEDS: Metoprolol Tartrate 5 MG/5 ML VIAL IVPUSH (12:34)
--- NOTE | 2023-08-04 13:03 | MHC.CM.PN ---
Per MD rounds no discharge today. Patient has new AFIB. She has been started on medications to control HR and prevent CVA. DP return home with son. Son will provide transport home.
[2023-08-04] MEDS: Azithromycin 500 MG TABLET PO (13:44)
[2023-08-04] MEDS: cefTRIAXone sodium 1 GM in 0.9 % Sodium Chloride 50 ML IV (13:45)
[2023-08-04 15:39] LABS: Adenovirus F 40/41 Not Detected (Not Detect.); Astrovirus Not Detected (Not Detect.); Campylobacter Not Detected (Not Detect.); Cryptosporidium Not Detected (Not Detect.); Cyclospora cayetanensis Not Detected (Not Detect.); E. coli EAEC Not Detected (Not Detect.); E. coli EPEC Detected (Not Detect.); E. coli ETEC Not Detected (Not Detect.); E. coli STEC Not Detected (Not Detect.); Entamoeba histolytica Not Detected (Not Detect.); Giardia lamblia Not Detected (Not Detect.); Norovirus GI/GII Not Detected (Not Detect.); Plesiomonas shigelloides Not Detected (Not Detect.); Rotavirus A Not Detected (Not Detect.); Salmonella Not Detected (Not Detect.); Sapovirus Not Detected (Not Detect.); Shigella sp./EIEC Not Detected (Not Detect.); Vibrio Not Detected (Not Detect.); Vibrio Cholerae Not Detected (Not Detect.); Yersinia enterocolitica Not Detected (Not Detect.)
[2023-08-04 15:52] VITALS: BP 157/69; PULSE 92; RESP 20; TEMP 36.4; O2SAT 93
--- NOTE | 2023-08-04 16:53 | P.PNIM_ITS ---
Subjective Subjective Date of Service: 08/04/23 Interval History: Episode of atrial fibrillation with rapid ventricular response overnight. Initially responded to Cardizem IV push x2; needed Lopressor 5 mg IV x1 this afternoon. Monitor now sinus with PACs Review of Systems Denies chest pain Denies shortness of breath Denies nausea vomiting admits diarrhea Denies fever chills Physical Exam 2 Vital Signs: Vital Signs: Last Vital Signs Temp 97.5 F 08/04/23 15:52 Pulse 92 08/04/23 15:52 Resp 20 08/04/23 15:52 BP 157/69 H 08/04/23 15:52 Pulse Ox 93 08/04/23 15:52 O2 Del Method Nasal Cannula 08/04/23 15:52 O2 Flow Rate 3 08/04/23 15:52 BMI result Body Mass Index 26.6 Const: Other: Awake alert no acute distress Resp: Other: Clear to auscultation bilaterally no rales rhonchi or wheezes GI: Other: Soft nontender nondistended normoactive bowel sounds Extrem: Other: No edema bilaterally Objective Data Active Medications Acetaminophen (Acetaminophen 325 Mg Tablet) 650 mg PO Q6H PRN PRN Reason: Pain, Mild (Pain Scale 1-3) Last Admin: 08/04/23 12:19 Dose: 650 mg Documented By: SHAAN Albuterol Sulfate (Albuterol Sulfate (0.083%) 2.5 Mg/3 Ml Vial.Neb) 2.5 mg INHALE Q4H PRN PRN Reason: Shortness of Breath/Wheezing Last Admin: 08/02/23 08:02 Dose: 2.5 mg Documented By: GREG Amlodipine Besylate (Amlodipine Besylate 10 Mg Tablet) 10 mg PO DAILY [facility]; Protocol Last Admin: 08/04/23 08:50 Dose: 10 mg Documented By: SHAAN Atorvastatin Calcium (Atorvastatin Calcium 40 Mg Tablet) 40 mg PO BEDTIME [facility] Last Admin: 08/03/23 21:18 Dose: 40 mg Documented By: TEETEE Azithromycin (Azithromycin 500 Mg Tablet) 500 mg PO Q24H [facility] Last Admin: 08/04/23 13:44 Dose: 500 mg Documented By: SHAAN Calcium Carbonate/Cholecalciferol (Calcium + Vitamin D 250 Mg Tablet) 500 mg PO DAILY [facility] Last Admin: 08/04/23 08:49 Dose: 500 mg Documented By: SHAAN Clopidogrel Bisulfate (Clopidogrel Bisulfate 75 Mg Tablet) 75 mg PO DAILY [facility] Last Admin: 08/04/23 08:49 Dose: 75 mg Documented By: SHAAN Docusate Sodium (Docusate Sodium 100 Mg Capsule) 100 mg PO DAILY PRN PRN Reason: Constipation Enoxaparin Sodium (Enoxaparin Sodium 80 Mg/0.8 Ml Syringe) 70 mg 1 mg/kg (70 mg) SUBCUT Q12H [facility] Last Admin: 08/04/23 08:48 Dose: 70 mg Documented By: SHAAN Escitalopram Oxalate (Escitalopram Oxalate 10 Mg Tablet) 15 mg PO DAILY [facility] Last Admin: 08/04/23 08:49 Dose: 15 mg Documented By: SHAAN Gabapentin (Gabapentin 300 Mg Capsule) 300 mg PO TID [facility] Last Admin: 08/04/23 15:23 Dose: 300 mg Documented By: SHAAN Ceftriaxone Sodium 1 gm/ (Sodium Chloride) 50 mls @ 100 mls/hr IV Q24H [facility] Last Infusion: 08/04/23 14:44 Dose: Infused Documented By: SHAAN Lidocaine (Lidocaine 4 % Patch Adh..Patch) 1 patch TRANSDERMA DAILY [facility]; Protocol Last Admin: 08/04/23 08:46 Dose: 1 patch Documented By: SHAAN Lisinopril (Lisinopril 10 Mg Tablet) 10 mg PO DAILY [facility]; Protocol Last Admin: 08/04/23 08:49 Dose: 10 mg Documented By: SHAAN Non-Formulary Medication (Buprenorphine) 1 patch TOPICAL [facility] Ondansetron HCl (Ondansetron Hcl 4 Mg/2 Ml Vial) 4 mg IVPUSH Q8H PRN PRN Reason: Nausea and Vomiting Last Admin: 08/02/23 22:04 Dose: 4 mg Documented By: MARIA TERESA Sodium Chloride (0.9 % Sodium Chloride Flush 3 Ml Syringe) [facility] Last Admin: 08/04/23 16:27 Dose: 3 ml Documented By: SHAAN Tramadol HCl (Tramadol Hcl 50 Mg Tablet) 50 mg PO Q4H PRN PRN Reason: Pain, Moderate(Pain Scale 4-6) Last Admin: 08/04/23 12:32 Dose: 50 mg Documented By: SHAAN Labs 08/04/23 07:28 08/04/23 06:00 Labs: Laboratory Results - last 24 hr 08/03/23 08/04/23 08/04/23 23:25 01:21 06:00 MCV 81.3 MCH 25.5 L MCHC 31.4 RDW 16.4 H Plt Count 147 L MPV 9.1 L Immature Gran % (Auto) 0.7 H Neut % (Auto) 86.9 H Lymph % (Auto) 3.6 L [place] % (Auto) 8.3 Eos % (Auto) 0.3 Baso % (Auto) 0.2 Lymph # (Auto) 0.4 L [place] # (Auto) 1.0 Eos # (Auto) 0.0 Baso # (Auto) 0.0 Abs Immat Gran (auto) 0.08 H Absolute Neuts (auto) 10.3 H Absolute Nucleated RBC 0.000 Nucleated RBC % (auto) 0.0 PT INR APTT Anion Gap 14 Estim Creat Clear Calc 53.4 Estimated GFR > 60 Fasting Glucose 92 Calcium 6.8 L Total Bilirubin 0.3 AST 23 ALT 14 Alkaline Phosphatase 62 Total Protein 5.6 L Albumin 2.8 L TSH 0.13 L Stl C. cayetanensis PCR Cancelled Stool Rotavirus A PCR Cancelled Stl Adenov F 40/41 PCR Cancelled Stool Astrovirus (PCR) Cancelled Stool Campylobacter PCR Cancelled Stool Cryptosporidium PCR Cancelled Stl Sh Tox Pr E STEC PCR Cancelled Stool E coli O157 PCR Cancelled Stl Enterotoxigenic E PCR Cancelled Stool EPEC (PCR) Cancelled Stool EAEC (PCR) Cancelled Stl E. histolytica PCR Cancelled Stool Giardia Lamblia PCR Cancelled Stl P. shigelloides PCR Cancelled Stool Salmonella PCR Cancelled Stool Sapovirus (PCR) Cancelled Stl Shigella/EIEC PCR Cancelled St Y.enterocolitica PCR Cancelled Stool Vibrio (PCR) Cancelled Stl Vibrio cholerae PCR Cancelled Stl Norovirus GI/GII PCR Cancelled 08/04/23 08/04/23 07:28 10:00 MCV 80.1 MCH 25.6 L MCHC 32.0 RDW 16.5 H Plt Count 141 L MPV 9.1 L Immature Gran % (Auto) Neut % (Auto) Lymph % (Auto) [place] % (Auto) Eos % (Auto) Baso % (Auto) Lymph # (Auto) [place] # (Auto) Eos # (Auto) Baso # (Auto) Abs Immat Gran (auto) Absolute Neuts (auto) Absolute Nucleated RBC 0.000 Nucleated RBC % (auto) 0.0 PT 13.9 H D INR 1.1 APTT 30.9 Anion Gap Estim Creat Clear Calc Estimated GFR Fasting Glucose Calcium Total Bilirubin AST ALT Alkaline Phosphatase Total Protein Albumin TSH Stl C. cayetanensis PCR Not Detected Stool Rotavirus A PCR Not Detected Stl Adenov F 40/41 PCR Not Detected Stool Astrovirus (PCR) Not Detected Stool Campylobacter PCR Not Detected Stool Cryptosporidium PCR Not Detected Stl Sh Tox Pr E STEC PCR Not Detected Stool E coli O157 PCR Not applicable Stl Enterotoxigenic E PCR Not Detected Stool EPEC (PCR) Detected A Stool EAEC (PCR) Not Detected Stl E. histolytica PCR Not Detected Stool Giardia Lamblia PCR Not Detected Stl P. shigelloides PCR Not Detected Stool Salmonella PCR Not Detected Stool Sapovirus (PCR) Not Detected Stl Shigella/EIEC PCR Not Detected St Y.enterocolitica PCR Not Detected Stool Vibrio (PCR) Not Detected Stl Vibrio cholerae PCR Not Detected Stl Norovirus GI/GII PCR Not Detected Assessment and Plan (1) Atrial fibrillation with rapid ventricular response: Status: Acute (2) Diarrhea: Status: Acute (3) BENNETT (acute kidney injury): Status: Acute Plan 78-year-old female with history of osteoporosis, CKD stage 3, NICHO on CPAP, COPD, hypertension, chronic low back pain, history of CVA, history polio admitted for BENNETT and syncope 1. AFib with rapid ventricular response -now in sinus with PACs -p.r.n. Lopressor as indicated by clinical presentation -await echo results 2.Acute diarrhea -GI panel demonstrated E coli -antibiotics DC -supportive care with IV fluids 3.Acute kidney injury -returned to baseline -follow renals/divalents 4.COPD -no acute exacerbation -albuterol p.r.n. 5.Hypertension -acceptable control off therapies -add back as appropriate 4.Chronic opiate dependence -continue buprenorphine Heparin Full code Patient requires ongoing hospitalization for volume replacement to treat acute kidney injury and to support ongoing diarrhea Time Spent With Patient Time: Total time managing care of this patient today ____ minutes. Quality Stroke Does the patient have a stroke diagnosis?: No VTE Prior VTE?: No VTE Risk Level:: Medical - moderate - high VTE Device Contraindication: Treatment Not Indicated VTE Drug Contraindication: N/A - Med Ordered
[2023-08-04 19:46] VITALS: BP 140/72; PULSE 102; RESP 20; TEMP 36.8; O2SAT 93
[2023-08-04] MEDS: Atorvastatin Calcium 40 MG TABLET PO (19:56)
[2023-08-04] MEDS: Metoprolol Tartrate 25 MG TABLET PO (19:56)
[2023-08-05] MEDS: traMADoL HCL 50 MG TABLET PO ×3 (02:35→14:26)
[2023-08-05 04:00] VITALS: BP 160/74; PULSE 88; RESP 16; TEMP 36.8; O2SAT 92
[2023-08-05] MEDS: ondansetron HCL 4 MG/2 ML VIAL IVPUSH (04:03)
--- NOTE | 2023-08-05 07:47 | ECG_ITS ---
Test Reason : chest pain Blood Pressure : / mmHG Vent. Rate : 000 BPM Atrial Rate : 000 BPM P-R Int : 000 ms QRS Dur : 000 ms QT Int : 000 ms P-R-T Axes : 000 000 000 degrees QTc Int : 000 ms No QRS complexes found, no ECG analysis possible When compared with ECG of 04-AUG-2023 00:24, Current undetermined rhythm precludes rhythm comparison, needs review Referred By: Sixto Narayanan Electronically Signed By:
[2023-08-05 07:49] VITALS: BP 156/75; PULSE 92; RESP 18; TEMP 36.3; O2SAT 93
[2023-08-05 08:46] LABS: Hematocrit 30.9 % (37.0-47.0); Hemoglobin 9.7 g/dl (12.0-16.0); Mean Corpuscular HGB Conc 31.4 g/dl (31.0-35.0); Mean Corpuscular Hemoglobin 25.2 pg (27.0-33.0); Mean Corpuscular Volume 80.3 fL (80.0-98.0); Mean Platelet Volume 9.4 fL (9.4-12.3); Platelet Count 167 X10*3/uL (160-400); Red Blood Count 3.85 X10*6/uL (4.20-5.50); Red Cell Distribution Width 16.2 % (11.0-16.0); White Blood Count 9.8 X10*3/uL (4.8-10.8)
[2023-08-05] MEDS: 0.9 % Sodium Chloride Flush 3 ML SYRINGE IVFLUSH ×3 (08:52→23:33)
[2023-08-05 08:53] LABS: INTERNATIONAL NORM RATIO 1.2 (0.9-1.1); Prothrombin Time 14.1 SEC (11.1-13.3)
[2023-08-05] MEDS: Magnesium Hydrox/Alum Hydrox 30 ML ORAL.SUSP PO (08:54)
[2023-08-05] MEDS: Calcium + Vitamin D 250 MG TABLET 500 MG PO (09:49)
[2023-08-05] MEDS: Clopidogrel Bisulfate 75 MG TABLET PO (09:49)
[2023-08-05] MEDS: Enoxaparin Sodium 80 MG/0.8 ML SYRINGE 70 MG SUBCUT (09:49)
[2023-08-05] MEDS: Gabapentin 300 MG CAPSULE PO ×3 (09:49→21:10)
[2023-08-05] MEDS: amLODIPine Besylate 10 MG TABLET PO (09:49)
[2023-08-05] MEDS: Escitalopram Oxalate 10 MG TABLET 15 MG PO (09:49)
[2023-08-05] MEDS: Metoprolol Tartrate 25 MG TABLET PO ×3 (09:49→21:10)
[2023-08-05] MEDS: lisinopriL 10 MG TABLET PO (09:49)
[2023-08-05] MEDS: Lidocaine 4 % Patch ADH..PATCH 1 PATCH TRANSDERMA ×2 (09:49→16:23)
--- NOTE | 2023-08-05 10:33 | PC.NURSE ---
Addendum entered by Marisa Pham RN 08/05/23 10:36: Patient re-evaluated after Dr Narayanan in to see patient and reassured. Still reporting nausea but chest pain subsided. Original Note: Patient reporting nausea, then called again reporting chest pain. Reports pain across lower chest radiating to back. Heavy pain 05/22. Wheezing, clammy and dizzy. Appears anxious. VSS. o2 sat 91% on 3L. Sinus rhythm with PAC's on monitor. Dr. Narayanan notified. EKG ordred. Maalox ordered and given. Troponins and CXR ordered. Dr. Narayanan in to evaluate patient. Patient
--- NOTE | 2023-08-05 11:16 | PM.PNCARD ---
Subjective Subjective Date of Service: 08/05/23 Interval history: Seen examined at bedside. She is still nauseous currently. She said she ate for the 1st time today. Telemetry is showing sinus rhythm at this point. Physical Exam Vital Signs: Last Vital Signs Temp 97.4 F 08/05/23 07:49 Pulse 92 08/05/23 07:49 Resp 18 08/05/23 07:49 BP 156/75 H 08/05/23 07:49 Pulse Ox 93 08/05/23 07:49 O2 Del Method Room Air 08/05/23 07:49 O2 Flow Rate 3 08/05/23 04:00 BMI result Body Mass Index 26.6 GENERAL APPEARANCE: Nauseous. NECK: no carotid bruit, no jugular venous distention. SKIN: no suspicious lesions, warm and dry. HEART: no murmurs, regular rate and rhythm. LUNGS: clear to auscultation bilaterally. ABDOMEN: soft, nontender. EXTREMITIES: no edema. PERIPHERAL PULSES: equal. NEUROLOGIC: No gross deficits, AAO X 3 Objective Labs and Meds 08/05/23 08:15 08/04/23 06:00 Lab results: Laboratory Results - last 24 hr 08/04/23 08/05/23 10:00 08:15 WBC 9.8 RBC 3.85 L Hgb 9.7 L Hct 30.9 L MCV 80.3 MCH 25.2 L MCHC 31.4 RDW 16.2 H Plt Count 167 MPV 9.4 Absolute Nucleated RBC 0.000 Nucleated RBC % (auto) 0.0 PT 14.1 H INR 1.2 H Troponin I High Sens 29.0 H D Stl C. cayetanensis PCR Not Detected Stool Rotavirus A PCR Not Detected Stl Adenov F 40/41 PCR Not Detected Stool Astrovirus (PCR) Not Detected Stool Campylobacter PCR Not Detected Stool Cryptosporidium PCR Not Detected Stl Sh Tox Pr E STEC PCR Not Detected Stool E coli O157 PCR Not applicable Stl Enterotoxigenic E PCR Not Detected Stool EPEC (PCR) Detected A Stool EAEC (PCR) Not Detected Stl E. histolytica PCR Not Detected Stool Giardia Lamblia PCR Not Detected Stl P. shigelloides PCR Not Detected Stool Salmonella PCR Not Detected Stool Sapovirus (PCR) Not Detected Stl Shigella/EIEC PCR Not Detected St Y.enterocolitica PCR Not Detected Stool Vibrio (PCR) Not Detected Stl Vibrio cholerae PCR Not Detected Stl Norovirus GI/GII PCR Not Detected Imaging Radiologist's impression: Impressions Chest X-Ray 08/05/23 08:29 IMPRESSION: Similar subtle bibasilar opacities, slightly more prominent on the right. Findings are nonspecific but may represent atelectasis in the setting of low lung volumes. Ultimately cannot exclude developing infiltrate. Progress Note: A&P Assessment and plan (1) PAF (paroxysmal atrial fibrillation): Status: Acute Plan Pleasant 78 year female with paroxysmal atrial fibrillation setting of pneumonia and diarrhea. Currently in sinus rhythm. Continue metoprolol and increasing the dose to 25 mg 3 times a day. Blood pressure is elevated and blood pressure medication should be titrated slowly. She has high chads Vasc score and did not feel any symptoms while she had atrial fibrillation. I think she should be changed to apixaban once able to tolerate p.o. consistently. Once she starts taking apixaban, Plavix should be stopped and she should be discharged on apixaban only. Thank you for allowing me to participate in the care of your patient. Please feel free to contact me if you have any questions. Time Spent With Patient Time: Total time managing care of this patient today ____ minutes. Progress Note: Quality Stroke Does the patient have a stroke diagnosis?: No Procedures Date of Service Date of Service: 08/05/23
[2023-08-05 14:27] VITALS: BP 142/69; PULSE 77; RESP 20; O2SAT 94
--- NOTE | 2023-08-05 15:31 | HO.PM.IMPN ---
Subjective Subjective Date of Service: 08/05/23 Interval History: No acute issue overnight. Remained afebrile Review of Systems Denies chest pain Denies shortness of breath Denies nausea vomiting admits diarrhea Denies fever chills Physical Exam Vital Signs: Vital Signs: Last Vital Signs Temp 97.4 F 08/05/23 07:49 Pulse 77 08/05/23 14:27 Resp 20 08/05/23 14:27 BP 142/69 H 08/05/23 14:27 Pulse Ox 94 08/05/23 14:27 O2 Del Method Nasal Cannula 08/05/23 14:27 O2 Flow Rate 3 08/05/23 14:27 BMI result Body Mass Index 26.6 Const: Other: Awake alert no acute distress Resp: Other: Clear to auscultation bilaterally no rales rhonchi or wheezes GI: Other: Soft nontender nondistended normoactive bowel sounds Extrem: Other: No edema bilaterally Objective Data Active Medications Acetaminophen (Acetaminophen 325 Mg Tablet) 650 mg PO Q6H PRN PRN Reason: Pain, Mild (Pain Scale 1-3) Last Admin: 08/04/23 19:56 Dose: 650 mg Documented By: JOSE Albuterol Sulfate (Albuterol Sulfate (0.083%) 2.5 Mg/3 Ml Vial.Neb) 2.5 mg INHALE Q4H PRN PRN Reason: Shortness of Breath/Wheezing Last Admin: 08/02/23 08:02 Dose: 2.5 mg Documented By: GREG Amlodipine Besylate (Amlodipine Besylate 10 Mg Tablet) 10 mg PO DAILY [facility]; Protocol Last Admin: 08/05/23 09:49 Dose: 10 mg Documented By: RYLEY Atorvastatin Calcium (Atorvastatin Calcium 40 Mg Tablet) 40 mg PO BEDTIME [facility] Last Admin: 08/04/23 19:56 Dose: 40 mg Documented By: JOSE Calcium Carbonate/Cholecalciferol (Calcium + Vitamin D 250 Mg Tablet) 500 mg PO DAILY [facility] Last Admin: 08/05/23 09:49 Dose: 500 mg Documented By: RYLEY Clopidogrel Bisulfate (Clopidogrel Bisulfate 75 Mg Tablet) 75 mg PO DAILY [facility] Last Admin: 08/05/23 09:49 Dose: 75 mg Documented By: RYLEY Docusate Sodium (Docusate Sodium 100 Mg Capsule) 100 mg PO DAILY PRN PRN Reason: Constipation Enoxaparin Sodium (Enoxaparin Sodium 80 Mg/0.8 Ml Syringe) 70 mg 1 mg/kg (70 mg) SUBCUT Q12H [facility] Last Admin: 08/05/23 09:49 Dose: 70 mg Documented By: RYLEY Escitalopram Oxalate (Escitalopram Oxalate 10 Mg Tablet) 15 mg PO DAILY [facility] Last Admin: 08/05/23 09:49 Dose: 15 mg Documented By: RYLEY Gabapentin (Gabapentin 300 Mg Capsule) 300 mg PO TID [facility] Last Admin: 08/05/23 14:26 Dose: 300 mg Documented By: RYLEY Lidocaine (Lidocaine 4 % Patch Adh..Patch) 1 patch TRANSDERMA DAILY [facility]; Protocol Last Admin: 08/05/23 09:49 Dose: 1 patch Documented By: RYLEY Lisinopril (Lisinopril 10 Mg Tablet) 10 mg PO DAILY [facility]; Protocol Last Admin: 08/05/23 09:49 Dose: 10 mg Documented By: RYLEY Metoprolol Tartrate (Metoprolol Tartrate 25 Mg Tablet) 25 mg PO TID [facility]; Protocol Last Admin: 08/05/23 14:26 Dose: 25 mg Documented By: RYLEY Non-Formulary Medication (Buprenorphine) 1 patch TOPICAL [facility] Ondansetron HCl (Ondansetron Hcl 4 Mg/2 Ml Vial) 4 mg IVPUSH Q8H PRN PRN Reason: Nausea and Vomiting Last Admin: 08/05/23 04:03 Dose: 4 mg Documented By: BERNY Sodium Chloride (0.9 % Sodium Chloride Flush 3 Ml Syringe) 3 ml IVFLUSH [facility] Last Admin: 08/05/23 08:52 Dose: 3 ml Documented By: RYLEY Tramadol HCl (Tramadol Hcl 50 Mg Tablet) 50 mg PO Q4H PRN PRN Reason: Pain, Moderate(Pain Scale 4-6) Last Admin: 08/05/23 14:26 Dose: 50 mg Documented By: RYLEY Labs 08/05/23 08:15 08/04/23 06:00 Labs: Laboratory Results - last 24 hr 08/04/23 08/05/23 10:00 08:15 MCV 80.3 MCH 25.2 L MCHC 31.4 RDW 16.2 H Plt Count 167 MPV 9.4 Absolute Nucleated RBC 0.000 Nucleated RBC % (auto) 0.0 PT 14.1 H INR 1.2 H Stl C. cayetanensis PCR Not Detected Stool Rotavirus A PCR Not Detected Stl Adenov F 40/41 PCR Not Detected Stool Astrovirus (PCR) Not Detected Stool Campylobacter PCR Not Detected Stool Cryptosporidium PCR Not Detected Stl Sh Tox Pr E STEC PCR Not Detected Stool E coli O157 PCR Not applicable Stl Enterotoxigenic E PCR Not Detected Stool EPEC (PCR) Detected A Stool EAEC (PCR) Not Detected Stl E. histolytica PCR Not Detected Stool Giardia Lamblia PCR Not Detected Stl P. shigelloides PCR Not Detected Stool Salmonella PCR Not Detected Stool Sapovirus (PCR) Not Detected Stl Shigella/EIEC PCR Not Detected St Y.enterocolitica PCR Not Detected Stool Vibrio (PCR) Not Detected Stl Vibrio cholerae PCR Not Detected Stl Norovirus GI/GII PCR Not Detected Assessment and Plan (1) PAF (paroxysmal atrial fibrillation): Status: Acute (2) Diarrhea: Status: Acute Plan 78-year-old female with history of osteoporosis, CKD stage 3, NICHO on CPAP, COPD, hypertension, chronic low back pain, history of CVA, history polio admitted for BENNETT and syncope 1. AFib with rapid ventricular response -now in sinus with PACs -p.r.n. Lopressor as indicated by clinical presentation -add Eliquis 5 mg b.i.d. -await echo results 2.Acute diarrhea -GI panel demonstrated E coli -antibiotics DC -supportive care with IV fluids 3.Acute kidney injury -returned to baseline -follow renals/divalents 4.COPD -no acute exacerbation -albuterol p.r.n. 5.Hypertension -acceptable control off therapies -add back as appropriate 4.Chronic opiate dependence -continue buprenorphine Heparin Full code Patient requires ongoing hospitalization for volume replacement to treat acute kidney injury and to support ongoing diarrhea Time Spent With Patient Time: Total time managing care of this patient today ____ minutes. Quality Stroke Does the patient have a stroke diagnosis?: No VTE Prior VTE?: No VTE Risk Level:: Medical - moderate - high VTE Device Contraindication: Treatment Not Indicated VTE Drug Contraindication: N/A - Med Ordered
[2023-08-05 15:43] VITALS: BP 149/70; PULSE 70; RESP 18; TEMP 36.2; O2SAT 93
--- NOTE | 2023-08-05 16:00 | PC.NURSE ---
Lidoderm patch not on ,patient states it was discarded because it fell off,Dr. Narayanan notified,
[2023-08-05 19:30] VITALS: BP 138/65; PULSE 71; RESP 18; TEMP 35.7; O2SAT 95
[2023-08-05] MEDS: Atorvastatin Calcium 40 MG TABLET PO (21:10)
[2023-08-05] MEDS: Apixaban 5 MG TABLET PO (21:10)
[2023-08-06 03:22] VITALS: BP 140/68; PULSE 73; RESP 18; TEMP 36.2; O2SAT 93
[2023-08-06 07:38] VITALS: BP 138/65; PULSE 74; RESP 16; TEMP 36.2; O2SAT 93
[2023-08-06 08:15] LABS: Alanine Aminotransferase 19 U/L (0-31); Albumin Level 2.8 g/dL (3.5-5.0); Alkaline Phosphatase 78 U/L (39-117); Anion Gap 16 (12-20); Aspartate Amino Transferase 29 U/L (5-31); Bilirubin Total 0.2 mg/dL (0.0-1.0); Blood Urea Nitrogen 13 mg/dL (9-16); Calcium 6.8 mg/dL (8.4-10.2); Carbon Dioxide 20 mmol/L (22-29); Chloride 103 mmol/L (96-108); Creatinine Clr Calc Pharmacy 50.8; Estimated Glomerular Filt Rate > 60; Glucose Fasting 69 mg/dL (60-99); Potassium 3.2 mmol/L (3.3-5.1); Sodium 136 mmol/L (135-145); Total Protein 5.9 g/dL (6.5-8.0)
[2023-08-06] MEDS: Escitalopram Oxalate 10 MG TABLET 15 MG PO (08:28)
[2023-08-06] MEDS: Calcium + Vitamin D 250 MG TABLET 500 MG PO (08:28)
[2023-08-06] MEDS: lisinopriL 10 MG TABLET PO (08:28)
[2023-08-06] MEDS: Apixaban 5 MG TABLET PO ×2 (08:28→20:43)
[2023-08-06] MEDS: Metoprolol Tartrate 25 MG TABLET PO ×3 (08:28→20:42)
[2023-08-06] MEDS: amLODIPine Besylate 10 MG TABLET PO (08:29)
[2023-08-06] MEDS: Gabapentin 300 MG CAPSULE PO ×3 (08:29→20:41)
[2023-08-06] MEDS: Lidocaine 4 % Patch ADH..PATCH 1 PATCH TRANSDERMA (08:29)
[2023-08-06] MEDS: 0.9 % Sodium Chloride Flush 3 ML SYRINGE IVFLUSH ×2 (08:29→16:54)
[2023-08-06] MEDS: traMADoL HCL 50 MG TABLET PO ×3 (10:13→20:42)
[2023-08-06] MEDS: Potassium Chloride ER 20 MEQ TAB.ER.PRT PO ×2 (12:04→20:42)
--- NOTE | 2023-08-06 12:23 | P.PNIM_ITS ---
Subjective Subjective Date of Service: 08/06/23 Interval History: Diarrhea slowly resolving. Voices no complaints Review of Systems Denies chest pain Denies shortness of breath Denies nausea vomiting admits diarrhea Denies fever chills Physical Exam 2 Vital Signs: Vital Signs: Last Vital Signs Temp 97.2 F 08/06/23 07:38 Pulse 74 08/06/23 07:38 Resp 16 08/06/23 07:38 BP 138/65 08/06/23 07:38 Pulse Ox 93 08/06/23 07:38 O2 Del Method Nasal Cannula 08/06/23 07:38 O2 Flow Rate 3 08/06/23 07:38 BMI result Body Mass Index 26.6 Const: Other: Awake alert no acute distress Resp: Other: Clear to auscultation bilaterally no rales rhonchi or wheezes GI: Other: Soft nontender nondistended normoactive bowel sounds Extrem: Other: No edema bilaterally Objective Data Active Medications Acetaminophen (Acetaminophen 325 Mg Tablet) 650 mg PO Q6H PRN PRN Reason: Pain, Mild (Pain Scale 1-3) Last Admin: 08/04/23 19:56 Dose: 650 mg Documented By: JOSE Albuterol Sulfate (Albuterol Sulfate (0.083%) 2.5 Mg/3 Ml Vial.Neb) 2.5 mg INHALE Q4H PRN PRN Reason: Shortness of Breath/Wheezing Last Admin: 08/02/23 08:02 Dose: 2.5 mg Documented By: GREG Amlodipine Besylate (Amlodipine Besylate 10 Mg Tablet) 10 mg PO DAILY [facility]; Protocol Last Admin: 08/06/23 08:29 Dose: 10 mg Documented By: RYLEY Apixaban (Apixaban 5 Mg Tablet) 5 mg PO BID [facility] Last Admin: 08/06/23 08:28 Dose: 5 mg Documented By: RYLEY Atorvastatin Calcium (Atorvastatin Calcium 40 Mg Tablet) 40 mg PO BEDTIME [facility] Last Admin: 08/05/23 21:10 Dose: 40 mg Documented By: RIMA Calcium Carbonate/Cholecalciferol (Calcium + Vitamin D 250 Mg Tablet) 500 mg PO DAILY [facility] Last Admin: 08/06/23 08:28 Dose: 500 mg Documented By: RYLEY Docusate Sodium (Docusate Sodium 100 Mg Capsule) 100 mg PO DAILY PRN PRN Reason: Constipation Escitalopram Oxalate (Escitalopram Oxalate 10 Mg Tablet) 15 mg PO DAILY [facility] Last Admin: 08/06/23 08:28 Dose: 15 mg Documented By: RYLEY Gabapentin (Gabapentin 300 Mg Capsule) 300 mg PO TID [facility] Last Admin: 08/06/23 08:29 Dose: 300 mg Documented By: RYLEY Lidocaine (Lidocaine 4 % Patch Adh..Patch) 1 patch TRANSDERMA DAILY [facility]; Protocol Last Admin: 08/06/23 08:29 Dose: 1 patch Documented By: RYLEY Lisinopril (Lisinopril 10 Mg Tablet) 10 mg PO DAILY [facility]; Protocol Last Admin: 08/06/23 08:28 Dose: 10 mg Documented By: RYLEY Metoprolol Tartrate (Metoprolol Tartrate 25 Mg Tablet) 25 mg PO TID [facility]; Protocol Last Admin: 08/06/23 08:28 Dose: 25 mg Documented By: RYLEY Non-Formulary Medication (Buprenorphine) 1 patch TOPICAL [facility] Ondansetron HCl (Ondansetron Hcl 4 Mg/2 Ml Vial) 4 mg IVPUSH Q8H PRN PRN Reason: Nausea and Vomiting Last Admin: 08/05/23 04:03 Dose: 4 mg Documented By: BERNY Potassium Chloride (Potassium Chloride Er 20 Meq Tab.Er.Prt) 20 meq PO BID [facility] Stop: 08/07/23 09:01 Last Admin: 08/06/23 12:04 Dose: 20 meq Documented By: RYLEY Sodium Chloride (0.9 % Sodium Chloride Flush 3 Ml Syringe) 3 ml IVFLUSH QSHIFT [facility] Last Admin: 08/06/23 08:29 Dose: 3 ml Documented By: RYLEY Tramadol HCl (Tramadol Hcl 50 Mg Tablet) 50 mg PO Q4H PRN PRN Reason: Pain, Moderate(Pain Scale 4-6) Last Admin: 08/06/23 10:13 Dose: 50 mg Documented By: RYLEY Labs 08/05/23 08:15 08/06/23 06:52 Labs: Laboratory Results - last 24 hr 08/06/23 06:52 Hold Purple Top SEE NOTE Anion Gap 16 Estim Creat Clear Calc 50.8 Estimated GFR > 60 Fasting Glucose 69 Calcium 6.8 L Total Bilirubin 0.2 AST 29 ALT 19 Alkaline Phosphatase 78 Total Protein 5.9 L Albumin 2.8 L Assessment and Plan (1) PAF (paroxysmal atrial fibrillation): Status: Acute (2) Diarrhea: Status: Acute Plan 78-year-old female with history of osteoporosis, CKD stage 3, NICHO on CPAP, COPD, hypertension, chronic low back pain, history of CVA, history polio admitted for BENNETT and syncope 1. AFib(paroxysmal) with rapid ventricular response -continues in sinus with PACs -p.r.n. Lopressor as indicated by clinical presentation -add Eliquis 5 mg b.i.d. -await echo results(done not read) 2.Acute diarrhea -GI panel demonstrated E coli -antibiotics DC -supportive care with IV fluids 3.Acute kidney injury -returned to baseline -follow renals/divalents 4.COPD -no acute exacerbation -albuterol p.r.n. 5.Hypertension -acceptable control off therapies -add back as appropriate 4.Chronic opiate dependence -continue buprenorphine Heparin Full code Patient requires ongoing hospitalization for volume replacement to treat acute kidney injury and to support ongoing diarrhea Time Spent With Patient Time: Total time managing care of this patient today ____ minutes. Quality Stroke Does the patient have a stroke diagnosis?: No VTE Prior VTE?: No VTE Risk Level:: Medical - moderate - high VTE Device Contraindication: Treatment Not Indicated VTE Drug Contraindication: N/A - Med Ordered
[2023-08-06 14:40] VITALS: BP 132/61; PULSE 72; RESP 18; O2SAT 89
[2023-08-06 16:00] VITALS: BP 140/70; PULSE 75; RESP 16; TEMP 36.8; O2SAT 96
[2023-08-06] MEDS: Acetaminophen 325 MG TABLET 650 MG PO (17:02)
[2023-08-06 19:17] VITALS: BP 130/69; PULSE 85; RESP 17; TEMP 36.8; O2SAT 97
[2023-08-06] MEDS: Atorvastatin Calcium 40 MG TABLET PO (20:42)
[2023-08-07 00:21] VITALS: BP 142/68; PULSE 65; RESP 16; TEMP 36.2; O2SAT 93
[2023-08-07 07:46] LABS: Alanine Aminotransferase 23 U/L (0-31); Albumin Level 2.8 g/dL (3.5-5.0); Alkaline Phosphatase 85 U/L (39-117); Anion Gap 14 (12-20); Aspartate Amino Transferase 37 U/L (5-31); Bilirubin Total 0.2 mg/dL (0.0-1.0); Blood Urea Nitrogen 14 mg/dL (9-16); Calcium 6.9 mg/dL (8.4-10.2); Carbon Dioxide 22 mmol/L (22-29); Chloride 105 mmol/L (96-108); Creatinine Clr Calc Pharmacy 54.8; Estimated Glomerular Filt Rate > 60; Glucose Fasting 85 mg/dL (60-99); Potassium 3.9 mmol/L (3.3-5.1); Sodium 137 mmol/L (135-145); Total Protein 5.8 g/dL (6.5-8.0)
[2023-08-07 08:00] VITALS: BP 161/73; PULSE 74; RESP 16; TEMP 36; O2SAT 93
[2023-08-07] MEDS: 0.9 % Sodium Chloride Flush 3 ML SYRINGE IVFLUSH (08:48)
[2023-08-07] MEDS: Apixaban 5 MG TABLET PO (08:48)
[2023-08-07] MEDS: Potassium Chloride ER 20 MEQ TAB.ER.PRT PO (08:48)
[2023-08-07] MEDS: lisinopriL 10 MG TABLET PO (08:48)
[2023-08-07] MEDS: traMADoL HCL 50 MG TABLET PO ×2 (08:49→15:30)
[2023-08-07] MEDS: Gabapentin 300 MG CAPSULE PO (08:49)
[2023-08-07] MEDS: Escitalopram Oxalate 10 MG TABLET 15 MG PO (08:49)
[2023-08-07] MEDS: Calcium + Vitamin D 250 MG TABLET 500 MG PO (08:50)
[2023-08-07] MEDS: amLODIPine Besylate 10 MG TABLET PO (08:50)
[2023-08-07] MEDS: Metoprolol Tartrate 25 MG TABLET PO (08:50)
[2023-08-07] MEDS: Lidocaine 4 % Patch ADH..PATCH 1 PATCH TRANSDERMA (08:51)
[2023-08-07 13:42] VITALS: PULSE 74; O2SAT 92
--- NOTE | 2023-08-07 14:50 | P.DS_ITS ---
DS: Providers Provider Date of Service: 08/07/23 Date of admission: 07/31/23 21:01 Primary care physician: Sally Villagomez MD Consults: 08/04/23 01:10 Consult to Cardiology Routine Consulting Provider: [facility] [place] Cardiovascular Services Reason for consultation: AFib with RVR Has provider been notified: Yes DS: Diagnosis Discharge Diagnosis (1) PAF (paroxysmal atrial fibrillation): Status: Acute (2) Diarrhea: Status: Acute DS: Summary Hospital Course Hospital Course: History of presenting illness: Date of Service: 07/31/23 Attending physician on admission: Brayan Daily Chief Complaint: syncope 78-year-old female with history of osteoporosis, CKD stage 3, NICHO on CPAP, COPD, hypertension, chronic low back pain, history of CVA, history polio presents to the ED earlier today with her son for evaluation of diarrhea and several syncopal episodes. She states 3 days ago developed 10+ episodes of watery diarrhea that persisted until early this morning. Has not had any further episodes of diarrhea. Denies any melena or hematochezia. No associated abdominal pain, nausea, vomiting. Denies eating any bad foods, recent antibiotic use, recent travel. No one at home has similar symptoms. In the 1st day of symptoms, well going to use the restroom, she sustained a near syncopal episode where she fell off the toilet. This episode she did not lose consciousness or hit her head. However she had to additional episodes the next 2 days where her son caught her and lowered her to the ground and reports a loss of consciousness lasting several seconds but no head injury. After the syncopal episode, she reports she felt foggy. She has not been eating or drinking much secondary to her symptoms. She does also endorse a headache. Denies any fe vers, chills, cough, upper respiratory symptoms, urinary symptoms, shortness of breath, palpitations, or chest pain. On arrival, patient afebrile with soft blood pressures ranging 92/66 to 123/37 on admission. Orthostatic vital signs negative. Per nursing staff, it has been difficult to accurately assess oximetry as patient has been ranging 81-93% on room air placed on 3 L supplemental O2 and still occasionally desatting to 85%. Will obtain ABG. Normocytic anemia with H/H 9.0/29.9%. Platelets 116. Initial creatinine 3.79, BUN 45. Improved to 3.38, 43 following IVF. She has hypocalcemia of 6.8. Mild hyponatremia of 130, CO2 15. Urinalysis pending. EKG shows sinus bradycardia, rate [address] or depressions. Chest x-ray shows low lung volumes with streaky bibasilar opacities which may reflect atelectasis as well as mild blunting of the costophrenic angles unchanged from 2019 possibly representing small pleural effusions or pleural parenchymal thickening. Chest CT shows emphysema with minimal chronic bilateral lower lobe pneumonia or resolving infiltrate/atelectasis but no pleural effusion. CT abdomen/pelvis negative for any acute process but does show moderate constipation without obstruction and small hiatal hernia. There was also noted to be compression fractures at T10 and 11 with cement augmentation and exaggerated thoracic kyphosis in the lower dorsal spine. No abnormality of the lumbosacral spine. D-dimer elevated and subsequent V/Q scan was normal without evidence of PE. Hospital course: 78-year-old female with history of osteoporosis, CKD stage 3, NICHO on CPAP, COPD, hypertension, chronic low back pain, history of CVA, history polio admitted for [facility]NETT and syncope, place on tele monitor syncope was likely related to volume depletion due to acute diarrhea treated with IV fluid resuscitation, diarrhea resolved, creatinine normalized, patient noted to be in atrial fibrillation with RVR treated with Lopressor and placed on Eliquis, heart rate improved and remained stable, in regard to diarrhea GI panel demonstrated E coli, diarrhea resolved, echocardiogram obtained report pending but since patient is hemodynamically stable she is requesting to be discharged home recommend to follow echo report from PCP, also recommended outpatient follow-up with Cardiology Dr. Dodge. In regard to chronic medical issues including COPD patient had no acute exacerbation her blood pressure was noted to be elevated, metoprolol 50 mg twice Daily added recommend outpatient blood pressure monitoring. Time Spent with Patient Time attestation: Total time managing care of this patient today ____ minutes. Discharge coordination time: Greater than 30 minutes Quality: Safe Use of Opioids Does Pt have an Active Cancer Diagnosis on the Problem List?: No Quality: Stroke Does the patient have a stroke diagnosis?: No Physical Exam Vital Signs: Vital Signs: Last Vital Signs Temp 96.8 F 08/07/23 08:00 Pulse 74 08/07/23 13:42 Resp 16 08/07/23 08:00 BP 161/73 H 08/07/23 08:00 Pulse Ox 92 08/07/23 13:42 O2 Del Method Room Air 08/07/23 13:42 O2 Flow Rate 1.0 08/07/23 08:00 BMI result Body Mass Index 26.6 Const: Other: General awake alert x3, resting comfortably in no acute distress. Neck supple no JVD. CVS regular rate rhythm, Respiratory lungs clear to auscultation, no respiratory distress, no wheeze, no rhonchi. Gastrointestinal abdomen soft, nontender, bowel sounds audible, no guarding , no rigidity. Extremities no edema. Neuro nonfocal Skin no rash DS: Data Data Completed and Pending Labs on day of discharge: Laboratory Results - last 24 hr 08/07/23 05:54 Sodium 137 Potassium 3.9 D Chloride 105 Carbon Dioxide 22 Anion Gap 14 BUN 14 Creatinine 0.77 Estim Creat Clear Calc 54.8 Estimated GFR > 60 Fasting Glucose 85 Calcium 6.9 L Total Bilirubin 0.2 AST 37 H ALT 23 Alkaline Phosphatase 85 Total Protein 5.8 L Albumin 2.8 L Discharge Plan Discharge Anticipated Discharge Date/Time: 08/07/23 14:56 Patient Disposition: Home, Self-Care Discharge Diagnosis: Syncope Diarrhea Acute on chronic kidney disease stage 3 Paroxysmal atrial fibrillation with RVR Referrals: Sally Villagomez MD [Primary Care Provider] - 1 Week Discharge Medications: New Eliquis 5 mg Tablet 5 mg PO BID Qty: 60 0RF metoprolol tartrate 50 mg tablet 50 mg PO BID Qty: 60 0RF Continued diphenoxylate-atropine 2.5-0.025 mg tablet 1 tab PO Q6H PRN (Reason: diarrhea) Qty: 90 3RF citalopram 20 mg tablet 30 mg PO DAILY Qty: 135 3RF atorvastatin 80 mg tablet 40 mg PO BEDTIME zolpidem 5 mg tablet 5 mg PO BEDTIME PRN (Reason: Sleep) Enbrel SureClick 50 mg/mL (1 mL) pen injector 50 mg subcut BAH lisinopril 10 mg tablet 10 mg PO DAILY amlodipine 10 mg tablet 10 mg PO DAILY albuterol sulfate 90 mcg/actuation HFA aerosol inhaler 2 puff inhalation Q6H PRN (Reason: shortness of breath or wheezing) Qty: 8.5 3RF gabapentin 300 mg capsule 300 mg PO TID buprenorphine 15 mcg/hour patch weekly 1 patch topical TH Discontinued clopidogrel 75 mg tablet 75 mg PO DAILY Qty: 90 3RF Discharge Orders: Discharge Order (Routine); Ordered 08/07/23 Ordered By: Julio Franco Diet: Advance to usual diet Activity on Discharge: As tolerated Stand Alone Forms: Patient Portal Discharge page Care Plan Goals: Acute kidney injury resolved Diarrhea improved Atrial fibrillation with RVR take metoprolol and Eliquis as prescribed Plavix discontinued Health Concerns: Take all home medications as before Plan of Treatment: Outpatient follow-up with primary care physician and [employer]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 Dodge call for appointment Assessment: As above
--- NOTE | 2023-08-07 15:19 | MHC.CM.PN ---
DP:PT HAS BEEN MEDICALLY CLEARED FOR DC HOME,NO SERVICES. SON WILL TRANSPORT HOME.
== END 2023-08-07 16:18 | disposition home or self-care (01) | DRG 371 ==
LOC: HO.ED 16:18 → HO.EDOVER 21:02 → HO.S3 08-01 14:55
PROVIDERS: Hospitalist; Physician Assistant; Student in an Organized Health Care Education/Training Program; Admitting Provider Physician Assistant; Emergency Provider Emergency Medicine; PCP Internal Medicine; Visit Provider Hospitalist
DX: A04.4 Other intestinal Escherichia coli infections (principal); J96.01 Acute respiratory failure with hypoxia; E87.1 Hypo-osmolality and hyponatremia; N17.9 Acute kidney failure, unspecified; F11.20 Opioid dependence, uncomplicated; E86.0 Dehydration; E83.42 Hypomagnesemia; I12.9 Hypertensive chronic kidney disease with stage 1 through stage 4 chronic kidney disease, or unspecified chronic kidney disease; N18.30 Chronic kidney disease, stage 3 unspecified; D64.9 Anemia, unspecified; E86.1 Hypovolemia; M81.0 Age-related osteoporosis without current pathological fracture; D63.1 Anemia in chronic kidney disease; J43.9 Emphysema, unspecified; E83.51 Hypocalcemia; G47.33 Obstructive sleep apnea (adult) (pediatric); I48.0 Paroxysmal atrial fibrillation; Z86.12 Personal history of poliomyelitis; Z20.822 Contact with and (suspected) exposure to COVID-19; Z79.899 Other long term (current) drug therapy
CPT/HCPCS: 36415; 36600; 70450; 71045; 71250; 74176; 78580; 80048; 80053; 80076; 81001; 82436; 82803; 83690; 83735; 83935; 84133; 84300; 84443; 84484; 85025; 85027; 85379; 85610; 85730; 87086; 87493; 87507; 87635; 92950; 93005; 93306; 94640; 99285; A9540; J0696; J1643; J1650; J2405; J3475; Q9957

== ENCOUNTER 2023-07-31 21:01 | Outpatient (BNV) | payer MEDICARE, OTHER, SELFPAY | END 2023-08-04 07:00 | PROVIDERS: Admitting Provider Physician Assistant; Emergency Provider Emergency Medicine; PCP Internal Medicine; Visit Provider Internal Medicine Cardiovascular Disease | DX: I48.91 Unspecified atrial fibrillation (principal) | CPT/HCPCS: 93306 ==

== ENCOUNTER → 2023-07-31 21:01 | Outpatient (BNV) | payer MEDICARE, OTHER, SELFPAY | PROVIDERS: Admitting Provider Physician Assistant; Emergency Provider Emergency Medicine; PCP Internal Medicine; Visit Provider Internal Medicine Gastroenterology | DX: R19.7 Diarrhea, unspecified (principal); D64.9 Anemia, unspecified | CPT/HCPCS: 99223 ==

== ENCOUNTER → 2023-07-31 21:01 | Outpatient (BNV) | payer MEDICARE, OTHER, SELFPAY | PROVIDERS: Admitting Provider Physician Assistant; Emergency Provider Emergency Medicine; PCP Internal Medicine; Visit Provider Internal Medicine Cardiovascular Disease | DX: I48.0 Paroxysmal atrial fibrillation (principal) | CPT/HCPCS: 99222; 99232 ==

== ENCOUNTER → 2023-07-31 21:01 | Outpatient (BNV) | payer MEDICARE, OTHER, SELFPAY | PROVIDERS: Admitting Provider Physician Assistant; Emergency Provider Emergency Medicine; Visit Provider Physician Assistant | DX: I48.0 Paroxysmal atrial fibrillation (principal); R19.7 Diarrhea, unspecified | CPT/HCPCS: 99223; 99233; 99239 ==

== ENCOUNTER 2023-08-22 13:47 | Outpatient (AMB) | payer MEDICARE, OTHER, SELFPAY ==
--- NOTE | 2023-08-22 14:00 | MHC.PC.OV ---
Vital Signs 08/22/23 14:01 Height 5 ft 4 in Weight 132 lb BMI 22.7 BP 134/64 Blood Pressure Location Lt brachial Position Sitting Pulse 62 Pulse Source Pulse Oximeter Pulse Oximetry (%) 95 Oxygen Delivery Method Room Air Intake Visit Reasons: Hospital follow up [facility] Intake Note: Pt is here today for Hospital follow up visit. Pt states that she fell once and she passed out 2 times. Allergies No Known Allergies [No Known Allergies*] Allergy (Verified 08/22/23 14:04) Medication List - Last Reconciled 08/22/23 by Sally Villagomez MD albuterol sulfate 90 mcg/actuation 2 puffs inhalation Q6H PRN amlodipine 10 mg PO DAILY apixaban (Eliquis) 5 mg PO BID atorvastatin 40 mg PO BEDTIME buprenorphine 15 mcg/hour 1 patch topical TH citalopram 30 mg (1.5 x 20 mg) PO DAILY diphenoxylate-atropine 2.5-0.025 mg 1 tab PO Q6H PRN etanercept 50 mg subcut BAH gabapentin 300 mg PO TID lisinopril 10 mg PO DAILY metoprolol tartrate 50 mg PO BID zolpidem 5 mg PO BEDTIME PRN Tobacco use date assessed: 08/22/23 Fall risk assessment: 2 + Falls in past year Last assessed Fall Risk: 08/22/23 Dental Screening Dental Screen Date: 08/22/23 Did you have a dental visit in the last 12 months?: Yes Did you have a dental problem in the last 6 months where you did not have access to dental care?: No Was dental information given to patient?: Patient has dentist HPI Hospital follow up [facility] HPI Details Patient presents for the follow-up of hospitalization [facility] for acute diarrhea, acute renal failure secondary to dehydration, new onset AFib with RVR. Patient is feeling better but still tired. She reports dyspnea on exertion but no PND orthopnea palpitations or chest pain. [facility] Medical History (Updated 08/22/23 @ 14:59 by Sally Villagomez MD) PAF (paroxysmal atrial fibrillation) Anemia Diarrhea Annual physical exam Weight loss Vitamin D deficiency Vertigo Obstructive sleep apnea Carotid stenosis, right Venous insufficiency of both lower extremities Status post CVA Compression fracture Osteoporosis CKD (chronic kidney disease) stage 3, GFR 30-59 ml/min History of IBS Lumbar stenosis Spondyloarthropathy Hyperlipidemia Depression COPD (chronic obstructive pulmonary disease) HTN (hypertension) Surgical History History of esophagogastroduodenoscopy (EGD) History of abdominal surgery Hx of cholecystectomy History of shoulder surgery History of oophorectomy History of hysterectomy H/O colonoscopy Family History Father No problems noted. Mother Colon cancer Sister Metastatic cancer Social History Household Members: Family Household Members Other:: 1 Housing: Condominium Do you presently have visiting nurse or other home services: No Alcohol intake: never Patient Tobacco Use Status: Never used Tobacco e-Cigarette/Vaping Use: Never Used Second Hand Smoke Exposure: No service: No Current occupational status: retired Cognitive needs: No Hearing needs: No Vision needs: No Questionnaire Thrive Questionnaire Date Thrive assessed: 08/01/23 Review of Systems Const All systems reviewed & are unremarkable except as noted in HPI and below Reports no additional complaints Eyes Reports no additional complaints ENT Reports no additional complaints Card Reports no additional complaints Resp Reports no additional complaints GI Reports no additional complaints Reports no additional complaints Physical exam (Primary Care) Vital Signs: Last Vital Signs Pulse 62 08/22/23 14:01 BP 134/64 08/22/23 14:01 Pulse Ox 95 08/22/23 14:01 Oxygen Delivery Method Room Air 08/22/23 14:01 BMI result Body Mass Index 22.7 Tobacco/Smoking Status: Tobacco use Status Tobacco use date assessed 08/22/23 08/22/23 14:09 Patient Tobacco Use Status Never used Tobacco 08/22/23 14:09 e-Cigarette/Vaping Use Never Used 08/22/23 14:01 Thrive Assessment: Date of Thrive Assessment Date Thrive assessed 08/01/23 08/22/23 14:01 Const General: no acute distress HENMT Throat: Yes posterior oropharynx normal Neck Neck: Yes supple Resp Effort & Inspection: normal respiratory effort Auscultation: wheezes and diminished lung sounds Cardio Rhythm: regular rhythm Heart sounds: S1 normal heart sound present and S2 normal heart sound present GI Inspection: Yes normal to inspection Palpation (GI): Soft to palpation Auscultation: normal bowel sounds Extrem Other: 2+ PITTING EDEMA B/L Assessment and Plan Assessment & Plan (1) Hyperlipidemia: Code(s): E78.5 - Hyperlipidemia, unspecified Plan: cont statin (2) HTN (hypertension): Code(s): I10 - Essential (primary) hypertension Plan: cont current meds (3) COPD (chronic obstructive pulmonary disease): Code(s): J44.9 - Chronic obstructive pulmonary disease, unspecified Plan: check PFT, sleep study, start Anoro and cont Albuterol prn (4) Anemia: Code(s): D64.9 - Anemia, unspecified Plan: repeat CBC and Iron (5) PAF (paroxysmal atrial fibrillation): Comment: 08/05, Echo nl LVEF, mild pul HTN Code(s): I48.0 - Paroxysmal atrial fibrillation Plan: cont Eliquis and Metoprolol (6) Edema: Code(s): R60.9 - Edema, unspecified Plan: restart Lasix 20 mg, check CMP and BNP TODAY, F/U 1 MONTH Orders: Orders Complete Blood Count Auto Diff Today D64.9 - Anemia, unspecified IRON PROFILE Today D64.9 - Anemia, unspecified, J44.9 - Chronic obstructive pulmonary disease, unspecified Vitamin B12 and Folate Today D64.9 - Anemia, unspecified, J44.9 - Chronic obstructive pulmonary disease, unspecified TSH reflex Free T4 Today D64.9 - Anemia, unspecified, J44.9 - Chronic obstructive pulmonary disease, unspecified Comprehensive Met. Panel Today E78.5 - Hyperlipidemia, unspecified, E87.5 - Hyperkalemia, I10 - Essential (primary) hypertension PFT pulmonary function test Today E87.5 - Hyperkalemia, I10 - Essential (primary) hypertension, J44.9 - Chronic obstructive pulmonary disease, unspecified RT home sleep study Today E87.5 - Hyperkalemia, I10 - Essential (primary) hypertension, J44.9 - Chronic obstructive pulmonary disease, unspecified B Type Natriuretic Peptide Today D64.9 - Anemia, unspecified, J44.9 - Chronic obstructive pulmonary disease, unspecified Medications: New umeclidinium-vilanterol 62.5-25 mcg/actuation (Anoro Ellipta) 1 inh inhalation DAILY 60 ea 3RF furosemide 20 mg PO DAILY 30 tabs 1RF Refilled albuterol sulfate 90 mcg/actuation 2 puffs inhalation Q6H PRN 8.5 grams 3RF shortness of breath or wheezing Coding Level of Care Code Est Pt Level 4 (67210) Diagnoses Hyperlipidemia E78.5 HTN (hypertension) I10 COPD (chronic obstructive pulmonary disease) J44.9 Anemia D64.9 PAF (paroxysmal atrial fibrillation) I48.0 Edema R60.9
[2023-08-22 14:01] VITALS: BP 134/64; PULSE 62; O2SAT 95; BMI 22.7
== END 2023-08-22 15:00 | disposition home or self-care (01) ==
PROVIDERS: PCP Internal Medicine; Visit Provider Internal Medicine
DX: E78.5 Hyperlipidemia, unspecified (principal); J44.9 Chronic obstructive pulmonary disease, unspecified; I48.0 Paroxysmal atrial fibrillation; I10 Essential (primary) hypertension; D64.9 Anemia, unspecified; R60.9 Edema, unspecified
CPT/HCPCS: 99214

== ENCOUNTER 2023-08-22 14:52 | Outpatient (REF) | payer MEDICARE, OTHER, SELFPAY | END 2023-08-22 14:53 | disposition home or self-care (01) | LOC: HO.HMGCLDS 14:52 | PROVIDERS: PCP Internal Medicine; Visit Provider Internal Medicine | DX: J44.9 Chronic obstructive pulmonary disease, unspecified (principal); D64.9 Anemia, unspecified; E87.5 Hyperkalemia; E78.5 Hyperlipidemia, unspecified; I10 Essential (primary) hypertension | CPT/HCPCS: 36415; 80053; 82607; 82746; 83540; 83880; 84443; 85025 ==

== ENCOUNTER 2023-09-18 11:53 | Outpatient (AMB) | payer MEDICARE, OTHER, SELFPAY ==
[2023-09-18 12:02] VITALS: BP 116/66; PULSE 60; O2SAT 95; BMI 22.7
--- NOTE | 2023-09-18 12:02 | A.OFFPC_ITS ---
Vital Signs 09/18/23 12:02 Height 5 ft 4 in Weight 132 lb 2 oz BMI 22.7 BP 116/66 Blood Pressure Location Rt brachial Position Sitting Pulse 60 Pulse Source Pulse Oximeter Pulse Oximetry (%) 95 Oxygen Delivery Method Room Air Intake Visit Reasons: 1 month follow up Allergies No Known Allergies [No Known Allergies*] Allergy (Verified 09/18/23 12:02) Medication List - Last Reconciled 09/18/23 by Sally Villagomez MD albuterol sulfate 90 mcg/actuation 2 puffs inhalation Q6H PRN amlodipine 10 mg PO DAILY apixaban (Eliquis) 5 mg PO BID atorvastatin 40 mg PO BEDTIME buprenorphine 15 mcg/hour 1 patch topical TH citalopram 30 mg (1.5 x 20 mg) PO DAILY diphenoxylate-atropine 2.5-0.025 mg 1 tab PO Q6H PRN etanercept 50 mg subcut BAH furosemide 20 mg PO DAILY gabapentin 300 mg PO TID lisinopril 10 mg PO DAILY metoprolol tartrate 50 mg PO BID umeclidinium-vilanterol 62.5-25 mcg/actuation (Anoro Ellipta) 1 inh inhalation DAILY zolpidem 5 mg PO BEDTIME PRN Tobacco use date assessed: 09/18/23 Fall risk assessment: 2 + Falls in past year Last assessed Fall Risk: 09/18/23 Dental Screening Dental Screen Date: 09/18/23 Did you have a dental visit in the last 12 months?: Yes Did you have a dental problem in the last 6 months where you did not have access to dental care?: No Was dental information given to patient?: Patient has dentist HPI 1 month follow up HPI Details Pt presents for a follow-up on hypertension, paroxysmal AFib and CHF, stable on meds. Patient denies palpitations or dyspnea on exertion. [facility] Medical History PAF (paroxysmal atrial fibrillation) Anemia Diarrhea Annual physical exam Weight loss Vitamin D deficiency Vertigo Obstructive sleep apnea Carotid stenosis, right Venous insufficiency of both lower extremities Status post CVA Compression fracture Osteoporosis CKD (chronic kidney disease) stage 3, GFR 30-59 ml/min History of IBS Lumbar stenosis Spondyloarthropathy Hyperlipidemia Depression COPD (chronic obstructive pulmonary disease) HTN (hypertension) Surgical History History of esophagogastroduodenoscopy (EGD) History of abdominal surgery Hx of cholecystectomy History of shoulder surgery History of oophorectomy History of hysterectomy H/O colonoscopy Family History Father No problems noted. Mother Colon cancer Sister Metastatic cancer Social History Household Members: Family Household Members Other:: 1 Housing: Condominium Do you presently have visiting nurse or other home services: No Alcohol intake: never Patient Tobacco Use Status: Never used Tobacco e-Cigarette/Vaping Use: Never Used Second Hand Smoke Exposure: No service: No Current occupational status: retired Cognitive needs: No Hearing needs: No Vision needs: No Questionnaire PHQ-9 Over the last 2 weeks, how often have you been bothered by any of the following problems? 1. Little interest or pleasure in doing things: several days 2. Feeling down, depressed, or hopeless: not at all 3. Trouble falling or staying asleep, or sleeping too much: several days 4. Feeling tired or having little energy: not at all 5. Poor appetite or overeating: not at all 6. Feeling bad about yourself - or that you are a failure or have let yourself or your family down: not at all 7. Trouble concentrating on things, such as reading the newspaper or watching television: not at all 8. Moving or speaking so slowly that other people could have noticed. Or the opposite - being so fidgety or restless that you have been moving around a lot more than usual: not at all 9. Thoughts that you would be better off or of hurting yourself in some way: not at all Total score: 2 Depression Screening Interpretation: Negative Depression Screening Done: Yes 82888 - PHQ-9 Billing: Yes Source: Developed by Drs. Enio Baltazar, Keely Turpin, Zach Anders and colleagues, with an educational zenia from [employer]. Thrive Questionnaire Date Thrive assessed: 08/01/23 AUDIT C Alcohol Use Questionnaire (AUDIT-C) 1. How often do you have a drink containing alcohol?: Never 3. How often do you have six or more drinks on one occasion?: Never Total Score: 0 Score Reviewed/Action Taken: Yes ELISEO-7 AMB Questionnaire ELISEO-7 Date ELISEO - 7 assessed: 09/18/23 Feeling nervous, anxious, or on edge: 0 = Not at all Not being able to stop or control worryin = Not at all Worrying too much about different things: 0 = Not at all Trouble relaxin = Not at all Being so restless that it is hard to sit still: 0 = Not at all Becoming easily annoyed or irritable: 0 = Not at all Feeling afraid as if something awful might happen: 0 = Not at all Total ELISEO-7 score (0-4 normal; 5-9 mild; 10-14 moderate; 15-21 severe): 0 Source: Developed by Drs. Enio Baltazar, Keely Turpin, Zach Anders and colleagues, with an educational zenia from [employer]. ELISEO-7 Assessment Billing ELISEO-7 Assessment Tool: ELISEO-7 Assessment 99817 Review of Systems Const All systems reviewed & are unremarkable except as noted in HPI and below Reports no additional complaints Eyes Reports no additional complaints ENT Reports no additional complaints Card Reports no additional complaints Resp Reports no additional complaints GI Reports no additional complaints Reports no additional complaints Physical exam (Primary Care) Vital Signs: Last Vital Signs Pulse 60 09/18/23 12:02 BP 116/66 09/18/23 12:02 Pulse Ox 89 L 09/18/23 12:02 Oxygen Delivery Method Room Air 09/18/23 12:02 BMI result Body Mass Index 22.7 Tobacco/Smoking Status: Tobacco use Status Tobacco use date assessed 09/18/23 09/18/23 12:03 Patient Tobacco Use Status Never used Tobacco 09/18/23 12:03 e-Cigarette/Vaping Use Never Used 09/18/23 12:03 PHQ-9: PHQ-9 Score PHQ-9: Total score 2 09/18/23 12:40 Depression Screening Interpretation: Negative Thrive Assessment: Date of Thrive Assessment Date Thrive assessed 08/01/23 09/18/23 12:03 Const General: no acute distress HENMT Face and sinus: Yes normal facial exam Eyes General: appearance normal, both eyes and all related structures Neck Neck: Yes supple Resp Effort & Inspection: normal respiratory effort Auscultation: clear to auscultation bilaterally Cardio Rhythm: regular rhythm Heart sounds: S1 normal heart sound present and S2 normal heart sound present GI Inspection: Yes normal to inspection Palpation (GI): Soft to palpation Assessment and Plan Assessment & Plan (1) PAF (paroxysmal atrial fibrillation): Comment: 08/05, Echo nl LVEF, mild pul HTN Code(s): I48.0 - Paroxysmal atrial fibrillation Plan: Continue Eliquis and metoprolol for rate control (2) COPD (chronic obstructive pulmonary disease): Code(s): J44.9 - Chronic obstructive pulmonary disease, unspecified Plan: Continue Anoro, awaiting PFTs (3) Anemia: Comment: Chronic iron deficiency anemia negative GI workup Code(s): D64.9 - Anemia, unspecified Plan: Patient was advised to restart iron supplement and recheck CBC in 2 months (4) Hyperlipidemia: Code(s): E78.5 - Hyperlipidemia, unspecified Plan: Continue statin (5) HTN (hypertension): Code(s): I10 - Essential (primary) hypertension Plan: Continue current medications Orders: Orders Comprehensive Met. Panel Today D64.9 - Anemia, unspecified, E78.5 - Hyperlipidemia, unspecified, I10 - Essential (primary) hypertension, I48.0 - Paroxysmal atrial fibrillation, J44.9 - Chronic obstructive pulmonary disease, unspecified B Type Natriuretic Peptide Today D64.9 - Anemia, unspecified Complete Blood Count Auto Diff 2 Months D64.9 - Anemia, unspecified, I48.0 - Paroxysmal atrial fibrillation, J44.9 - Chronic obstructive pulmonary disease, unspecified IRON PROFILE 2 Months D64.9 - Anemia, unspecified, I48.0 - Paroxysmal atrial fibrillation, J44.9 - Chronic obstructive pulmonary disease, unspecified Comprehensive Met. Panel 2 Months D64.9 - Anemia, unspecified, I48.0 - P aroxysmal atrial fibrillation, J44.9 - Chronic obstructive pulmonary disease, unspecified Medications: New lidocaine 5% leave on most painful area for up to 12 hrs 1 patch topical DAILY 30 ea 0RF Coding Level of Care Code Est Pt Level 4 (76674) Diagnoses PAF (paroxysmal atrial fibrillation) I48.0 COPD (chronic obstructive pulmonary disease) J44.9 Anemia D64.9 Hyperlipidemia E78.5 HTN (hypertension) I10 Additional Codes ELISEO-7 Assessment Billing - ELISEO-7 Assessment Tool: ELISEO-7 Assessment [id number] ([id number])
== END 2023-09-18 13:06 | disposition home or self-care (01) ==
PROVIDERS: PCP Internal Medicine; Visit Provider Internal Medicine
DX: I48.0 Paroxysmal atrial fibrillation (principal); J44.9 Chronic obstructive pulmonary disease, unspecified; D64.9 Anemia, unspecified; E78.5 Hyperlipidemia, unspecified; I10 Essential (primary) hypertension
CPT/HCPCS: 99214

== ENCOUNTER 2023-09-18 13:05 | Outpatient (REF) | payer MEDICARE, OTHER, SELFPAY ==
[2023-09-18 17:18] LABS: Alanine Aminotransferase 20 U/L (0-31); Albumin Level 4.3 g/dL (3.5-5.0); Alkaline Phosphatase 69 U/L (39-117); Anion Gap 14 (12-20); Aspartate Amino Transferase 29 U/L (5-31); B Type Natriuretic Peptide 372 pg/mL (<100); Bilirubin Total 0.4 mg/dL (0.0-1.0); Blood Urea Nitrogen 51 mg/dL (9-16); Calcium 10.5 mg/dL (8.4-10.2); Carbon Dioxide 24 mmol/L (22-29); Chloride 107 mmol/L (96-108); Estimated Glomerular Filt Rate 34; Glucose Random 88 mg/dL (60-115); Sodium 140 mmol/L (135-145); Total Protein 7.9 g/dL (6.5-8.0)
== END 2023-09-18 13:06 | disposition home or self-care (01) ==
LOC: HO.HMGCLDS 13:05
PROVIDERS: PCP Internal Medicine; Visit Provider Internal Medicine
DX: D64.9 Anemia, unspecified (principal); I48.0 Paroxysmal atrial fibrillation; J44.9 Chronic obstructive pulmonary disease, unspecified; E78.5 Hyperlipidemia, unspecified; I10 Essential (primary) hypertension
CPT/HCPCS: 36415; 80053; 83880

== ENCOUNTER 2023-09-28 12:52 | Outpatient (REF) | payer MEDICARE, OTHER, SELFPAY ==
[2023-09-28 17:18] LABS: Anion Gap 10 (12-20); Blood Urea Nitrogen 44 mg/dL (9-16); Calcium 10.1 mg/dL (8.4-10.2); Carbon Dioxide 24 mmol/L (22-29); Chloride 110 mmol/L (96-108); Estimated Glomerular Filt Rate 40; Glucose Random 80 mg/dL (60-115); Potassium 5.1 mmol/L (3.3-5.1); Sodium 139 mmol/L (135-145)
== END 2023-09-28 12:53 | disposition home or self-care (01) ==
LOC: HO.HMGCLDS 12:52
PROVIDERS: PCP Internal Medicine; Visit Provider Internal Medicine
DX: N18.30 Chronic kidney disease, stage 3 unspecified (principal)
CPT/HCPCS: 36415; 80048

== ENCOUNTER 2023-10-10 10:55 | Outpatient (REF) | payer MEDICARE, OTHER, SELFPAY | END 2023-10-10 10:56 | disposition home or self-care (01) | LOC: HO.RESP 10:55 | PROVIDERS: PCP Internal Medicine; Visit Provider Internal Medicine | DX: Z13.89 Encounter for screening for other disorder (principal) ==

== ENCOUNTER 2023-11-09 10:49 | Outpatient (REF) | payer MEDICARE, OTHER, SELFPAY ==
--- NOTE | 2023-11-09 11:00 | PFT_ITS ---
Indication: COPD Spirometry [FEV1 to FVC 60%; FEV1 1.19 L which is stated to be 109% predicted; FVC 1.97 L which is 112% predicted there was a significant response to bronchodilators noted. Maximum voluntary ventilation 46% predicted.] Lung Volumes [Total lung capacity 73% predicted] Diffusion Capacity [DLCO 33% predicted] Comparisons [none available] Interpretation [There is an obstructive ventilatory defect consistent with COPD likely moderate severity. There was a significant response to bronchodilators noted. There is also moderate to severe decrease in the maximum voluntary ventilation secondary to likely deconditioning. Although cannot rule out neuromuscular disease. The patient also has a mild low restrictive ventilatory defect. Need to consider underlying parenchymal lung conditions and or neuromuscular disease. The patient has a very severe diffusion impairment. Likely secondary to underlying parenchymal disease and emphysema although cannot rule out pulmonary vascular disease. Need to correction for hemoglobin.] MTDD
== END 2023-11-09 10:50 | disposition home or self-care (01) ==
LOC: HO.RESP 10:49
PROVIDERS: PCP Internal Medicine; Visit Provider Internal Medicine
DX: J44.9 Chronic obstructive pulmonary disease, unspecified (principal); E87.5 Hyperkalemia; I10 Essential (primary) hypertension
CPT/HCPCS: 94010; 94727; 94729

== ENCOUNTER → 2023-11-09 11:00 | Outpatient (BNV) | payer MEDICARE, OTHER, SELFPAY | PROVIDERS: PCP Internal Medicine; Visit Provider Hospitalist | DX: J44.9 Chronic obstructive pulmonary disease, unspecified (principal) | CPT/HCPCS: 94060; 94727; 94729 ==

== ENCOUNTER 2023-11-20 11:58 | Outpatient (AMB) | payer MEDICARE, OTHER, SELFPAY ==
[2023-11-20 12:00] VITALS: BP 110/70; PULSE 58; O2SAT 95; BMI 22.5
--- NOTE | 2023-11-20 12:00 | MHC.PC.OV ---
Vital Signs 11/20/23 12:00 Height 5 ft 4 in Weight 131 lb 4 oz BMI 22.5 BP 110/70 Blood Pressure Location Lt brachial Position Sitting Pulse 58 Pulse Source Pulse Oximeter Pulse Oximetry (%) 95 Oxygen Delivery Method Room Air Intake Visit Reasons: 2 month follow up Intake Note: Pt is here to go over the PFT results Allergies No Known Allergies [No Known Allergies*] Allergy (Verified 11/20/23 12:02) Medication List - Last Reconciled 11/20/23 by Sally Villagomez MD albuterol sulfate 90 mcg/actuation 2 puffs inhalation Q6H PRN amlodipine 10 mg PO DAILY apixaban (Eliquis) 5 mg PO BID atorvastatin 40 mg PO BEDTIME buprenorphine 15 mcg/hour 1 patch topical TH citalopram 30 mg (1.5 x 20 mg) PO DAILY diphenoxylate-atropine 2.5-0.025 mg 1 tab PO Q6H PRN etanercept 50 mg subcut BAH furosemide 20 mg PO DAILY gabapentin 300 mg PO TID lidocaine 5% 1 patch topical DAILY lisinopril 10 mg PO DAILY metoprolol tartrate 50 mg PO BID umeclidinium-vilanterol 62.5-25 mcg/actuation (Anoro Ellipta) 1 inh inhalation DAILY Tobacco use date assessed: 11/20/23 Fall risk assessment: 2 + Falls in past year Last assessed Fall Risk: 11/20/23 Dental Screening Dental Screen Date: 11/20/23 Did you have a dental visit in the last 12 months?: Yes Did you have a dental problem in the last 6 months where you did not have access to dental care?: No Was dental information given to patient?: Patient has dentist HPI 2 month follow up HPI Details Patient presents for the follow-up on hypertension chronic kidney disease stage 3 COPD and hyperlipidemia. Patient reports worsening of balance and fell down 2 months ago tripped over on the patio. Patient denies any head injury or loss of consciousness. [facility] Medical History CKD (chronic kidney disease) stage 3, GFR 30-59 ml/min PAF (paroxysmal atrial fibrillation) Anemia Diarrhea Annual physical exam Weight loss Vitamin D deficiency Vertigo Obstructive sleep apnea Carotid stenosis, right Venous insufficiency of both lower extremities Status post CVA Compression fracture Osteoporosis History of IBS Lumbar stenosis Spondyloarthropathy Hyperlipidemia Depression COPD (chronic obstructive pulmonary disease) HTN (hypertension) Surgical History History of esophagogastroduodenoscopy (EGD) History of abdominal surgery Hx of cholecystectomy History of shoulder surgery History of oophorectomy History of hysterectomy H/O colonoscopy Family History Father No problems noted. Mother Colon cancer Sister Metastatic cancer Social History Household Members: Family Household Members Other:: 1 Housing: Condominium Do you presently have visiting nurse or other home services: No Alcohol intake: never Patient Tobacco Use Status: Never used Tobacco e-Cigarette/Vaping Use: Never Used Second Hand Smoke Exposure: No service: No Current occupational status: retired Cognitive needs: No Hearing needs: No Vision needs: No Questionnaire Thrive Questionnaire Date Thrive assessed: 08/01/23 ELISEO-7 AMB Questionnaire ELISEO-7 Date ELISEO - 7 assessed: 09/18/23 Source: Developed by Drs. Enio Baltazar, Keely Turpin, Zach Anders and colleagues, with an educational zenia from [employer]. Review of Systems Const All systems reviewed & are unremarkable except as noted in HPI and below Reports no additional complaints Eyes Reports no additional complaints ENT Reports no additional complaints Card Reports no additional complaints Resp Reports no additional complaints GI Reports no additional complaints Reports no additional complaints Musc Reports no additional complaints Physical exam (Primary Care) Vital Signs: Last Vital Signs Pulse 58 11/20/23 12:00 BP 162/70 H 11/20/23 12:00 Pulse Ox 95 11/20/23 12:00 Oxygen Delivery Method Room Air 11/20/23 12:00 BMI result Body Mass Index 22.5 Tobacco/Smoking Status: Tobacco use Status Tobacco use date assessed 11/20/23 11/20/23 12:07 Patient Tobacco Use Status Never used Tobacco 11/20/23 12:02 e-Cigarette/Vaping Use Never Used 11/20/23 12:02 Thrive Assessment: Date of Thrive Assessment Date Thrive assessed 08/01/23 11/20/23 12:02 Const General: no acute distress HENMT Face and sinus: Yes normal facial exam Neck Neck: Yes supple Resp Effort & Inspection: normal respiratory effort Auscultation: clear to auscultation bilaterally Cardio Rhythm: regular rhythm Heart sounds: S1 normal heart sound present and S2 normal heart sound present GI Inspection: Yes normal to inspection Palpation (GI): Soft to palpation Percussion: Yes normal to percussion Auscultation: normal bowel sounds Assessment and Plan Assessment & Plan (1) Poor balance: Code(s): R26.89 - Other abnormalities of gait and mobility Plan: Referred to physical therapy, fall prevention discussed with the patient (2) CKD (chronic kidney disease) stage 3, GFR 30-59 ml/min: Comment: follow-up Dr. Eduardo Code(s): N18.30 - Chronic kidney disease, stage 3 unspecified Plan: Monitor renal function and avoid nephrotoxins and follow-up with nephrology (3) PAF (paroxysmal atrial fibrillation): Comment: 08/05, Echo nl LVEF, mild pul HTN Code(s): I48.0 - Paroxysmal atrial fibrillation Plan: Continue current medications and anticoagulation (4) COPD (chronic obstructive pulmonary disease): Comment: PFT 11/04 Code(s): J44.9 - Chronic obstructive pulmonary disease, unspecified Plan: Continue Anoro (5) HTN (hypertension): Code(s): I10 - Essential (primary) hypertension Plan: Continue current medications and follow-up in 3 months Orders: Orders Comprehensive Met. Panel Today I10 - Essential (primary) hypertension, I48.0 - Paroxysmal atrial fibrillation, J44.9 - Chronic obstructive pulmonary disease, unspecified, N18.30 - Chronic kidney disease, stage 3 unspecified Complete Blood Count Auto Diff Today I10 - Essential (primary) hypertension, I48.0 - Paroxysmal atrial fibrillation, J44.9 - Chronic obstructive pulmonary disease, unspecified, N18.30 - Chronic kidney disease, stage 3 unspecified B Type Natriuretic Peptide Today I10 - Essential (primary) hypertension, I48.0 - Paroxysmal atrial fibrillation, J44.9 - Chronic obstructive pulmonary disease, unspecified, N18.30 - Chronic kidney disease, stage 3 unspecified PT Evaluation and Treatment Today R26.89 - Other abnormalities of gait and mobility Coding Level of Care Code Est Pt Level 4 (24622) Diagnoses Poor balance R26.89 CKD (chronic kidney disease) stage 3, GFR 30-59 ml/min N18.30 PAF (paroxysmal atrial fibrillation) I48.0 COPD (chronic obstructive pulmonary disease) J44.9 HTN (hypertension) I10
== END 2023-11-20 13:21 | disposition home or self-care (01) ==
PROVIDERS: PCP Internal Medicine; Visit Provider Internal Medicine
DX: I12.9 Hypertensive chronic kidney disease with stage 1 through stage 4 chronic kidney disease, or unspecified chronic kidney disease (principal); N18.30 Chronic kidney disease, stage 3 unspecified; I48.0 Paroxysmal atrial fibrillation; J44.9 Chronic obstructive pulmonary disease, unspecified
CPT/HCPCS: 99214

== ENCOUNTER 2023-11-20 12:52 | Outpatient (REF) | payer MEDICARE, OTHER, SELFPAY ==
[2023-11-20 16:32] LABS: Alanine Aminotransferase 15 U/L (0-31); Albumin Level 4.2 g/dL (3.5-5.0); Alkaline Phosphatase 83 U/L (39-117); Anion Gap 13 (12-20); Aspartate Amino Transferase 22 U/L (5-31); Bilirubin Total 0.2 mg/dL (0.0-1.0); Blood Urea Nitrogen 36 mg/dL (9-16); Carbon Dioxide 26 mmol/L (22-29); Chloride 103 mmol/L (96-108); Estimated Glomerular Filt Rate 31; Glucose Random 91 mg/dL (60-115); Iron 27 mcg/dL (30-160); Percent Iron Saturation 7 % (15-50); Potassium 5.2 mmol/L (3.3-5.1); Sodium 137 mmol/L (135-145); Total Iron Binding Capacity 401 mcg/dL (228-428); Total Protein 7.7 g/dL (6.5-8.0); Unsaturated Iron Binding 374 ug/dL
[2023-11-20 16:53] LABS: B Type Natriuretic Peptide 315 pg/mL (<100)
== END 2023-11-20 12:53 | disposition home or self-care (01) ==
LOC: HO.HMGCLDS 12:52
PROVIDERS: PCP Internal Medicine; Visit Provider Internal Medicine
DX: N18.30 Chronic kidney disease, stage 3 unspecified (principal); I48.0 Paroxysmal atrial fibrillation; J44.9 Chronic obstructive pulmonary disease, unspecified; I10 Essential (primary) hypertension; D64.9 Anemia, unspecified
CPT/HCPCS: 36415; 80053; 83540; 83880; 85025

== ENCOUNTER 2024-05-20 11:29 | Outpatient (AMB) | payer MEDICARE, OTHER, SELFPAY ==
--- NOTE | 2024-05-20 11:56 | A.OFFPC_ITS ---
Vital Signs 05/20/24 11:58 Height 5 ft 4 in Weight 127 lb BMI 21.8 BP 122/76 Blood Pressure Location Lt brachial Position Sitting Pulse 54 Pulse Source Pulse Oximeter Pulse Oximetry (%) 94 Oxygen Delivery Method Room Air Intake Visit Reasons: Muscle Pain Intake Note: pt is here for muscle pain Allergies No Known Allergies [No Known Allergies*] Allergy (Verified 05/20/24 11:56) Medication List - Last Reconciled 05/20/24 by Sally Villagomez MD albuterol sulfate 90 mcg/actuation 2 puffs inhalation Q6H PRN amlodipine 10 mg PO DAILY apixaban (Eliquis) 5 mg PO BID atorvastatin 40 mg PO BEDTIME buprenorphine 15 mcg/hour 1 patch topical TH citalopram 30 mg (1.5 x 20 mg) PO DAILY diphenoxylate-atropine 2.5-0.025 mg 1 tab PO Q6H PRN etanercept 50 mg subcut BAH furosemide 20 mg PO DAILY PRN gabapentin 300 mg PO TID lidocaine 5% 1 patch topical DAILY lisinopril 10 mg PO DAILY metoprolol tartrate 50 mg PO BID omeprazole 40 mg PO DAILY umeclidinium-vilanterol 62.5-25 mcg/actuation (Anoro Ellipta) 1 inh inhalation DAILY Tobacco use date assessed: 05/20/24 Dental Screening Dental Screen Date: 11/20/23 HPI Muscle Pain HPI Details Pt presents c/o proximal upper and lower extremities myalgia for 1 week, worse in the morning and with the movement. Patient had fever for 1 day a week ago. She denies arthralgia, rash, sore throat, cough, GI symptoms. [facility], [facility] Medical History CKD (chronic kidney disease) stage 3, GFR 30-59 ml/min PAF (paroxysmal atrial fibrillation) Anemia Diarrhea Annual physical exam Weight loss Vitamin D deficiency Vertigo Obstructive sleep apnea Carotid stenosis, right Venous insufficiency of both lower extremities Status post CVA Compression fracture Osteoporosis History of IBS Lumbar stenosis Spondyloarthropathy Hyperlipidemia Depression COPD (chronic obstructive pulmonary disease) HTN (hypertension) Surgical History History of esophagogastroduodenoscopy (EGD) History of abdominal surgery Hx of cholecystectomy History of shoulder surgery History of oophorectomy History of hysterectomy H/O colonoscopy Family History Father No problems noted. Mother Colon cancer Sister Metastatic cancer Social History Household Members: Family Household Members Other:: 1 Housing: Condominium Do you presently have visiting nurse or other home services: No Alcohol intake: never Patient Tobacco Use Status: Never used Tobacco e-Cigarette/Vaping Use: Never Used Second Hand Smoke Exposure: No service: No Current occupational status: retired Cognitive needs: No Hearing needs: No Vision needs: No Questionnaire PHQ-9 Over the last 2 weeks, how often have you been bothered by any of the following problems? 1. Little interest or pleasure in doing things: not at all 2. Feeling down, depressed, or hopeless: not at all 3. Trouble falling or staying asleep, or sleeping too much: not at all 4. Feeling tired or having little energy: not at all 5. Poor appetite or overeating: not at all 6. Feeling bad about yourself - or that you are a failure or have let yourself or your family down: not at all 7. Trouble concentrating on things, such as reading the newspaper or watching television: not at all 8. Moving or speaking so slowly that other people could have noticed. Or the opposite - being so fidgety or restless that you have been moving around a lot more than usual: not at all 9. Thoughts that you would be better off or of hurting yourself in some way: not at all Total score: 0 Depression Screening Interpretation: Negative Depression Screening Done: Yes 55017 - PHQ-9 Billing: Yes Source: Developed by Drs. Enio Baltazar, Keely Turpin, Zach Anders and colleagues, with an educational zenia from [employer]. Thrive Questionnaire Date Thrive assessed: 08/01/23 AUDIT C Alcohol Use Questionnaire (AUDIT-C) 1. How often do you have a drink containing alcohol?: Never 3. How often do you have six or more drinks on one occasion?: Never Total Score: 0 ELISEO-7 AMB Questionnaire ELISEO-7 Date ELISEO - 7 assessed: 07/08/24 Feeling nervous, anxious, or on edge: 0 = Not at all Not being able to stop or control worryin = Not at all Worrying too much about different things: 0 = Not at all Trouble relaxin = Not at all Being so restless that it is hard to sit still: 0 = Not at all Becoming easily annoyed or irritable: 0 = Not at all Feeling afraid as if something awful might happen: 0 = Not at all Total ELISEO-7 score (0-4 normal; 5-9 mild; 10-14 moderate; 15-21 severe): 0 Source: Developed by Drs. Enio Baltazar, Keely Turpin, Zach Anders and colleagues, with an educational zenia from [employer]. ELISEO-7 Assessment Billing ELISEO-7 Assessment Tool: ELISEO-7 Assessment 41794 Review of Systems Const All systems reviewed & are unremarkable except as noted in HPI and below Eyes Reports no additional complaints ENT Reports no additional complaints Card Reports no additional complaints Resp Reports no additional complaints GI Reports no additional complaints Physical exam (Primary Care) Vital Signs: Last Vital Signs Pulse 54 05/20/24 11:58 BP 122/76 05/20/24 11:58 Pulse Ox 94 05/20/24 11:58 Oxygen Delivery Method Room Air 05/20/24 11:58 BMI result Body Mass Index 21.8 Tobacco/Smoking Status: Tobacco use Status Tobacco use date assessed 05/20/24 05/20/24 12:03 Patient Tobacco Use Status Never used Tobacco 05/20/24 12:03 e-Cigarette/Vaping Use Never Used 05/20/24 12:03 PHQ-9: PHQ-9 Score PHQ-9: Total score 0 05/20/24 12:03 Depression Screening Interpretation: Negative Thrive Assessment: Date of Thrive Assessment Date Thrive assessed 08/01/23 05/20/24 12:03 Const General: no acute distress HENMT Face and sinus: Yes normal facial exam Neck Neck: Yes no lymphadenopathy and Yes supple Resp Effort & Inspection: normal respiratory effort Auscultation: clear to auscultation bilaterally Cardio Rhythm: regular rhythm Heart sounds: S1 normal heart sound present and S2 normal heart sound present GI Inspection: Yes normal to inspection Palpation (GI): Soft to palpation Percussion: Yes normal to percussion Auscultation: normal bowel sounds Extrem Other: No joint swelling or tenderness, there is a reproducible tenderness in proximal upper and lower extremities General: Yes no clubbing, cyanosis or edema Assessment and Plan Assessment & Plan (1) Myalgia: Code(s): M79.10 - Myalgia, unspecified site Plan: Check CRP, sed rate comprehensive panel and CPK. If sed rate is elevated for possible PMR prednisone will be started otherwise statin will be held for a few weeks. Supportive care discussed with the patient Orders: Orders CK, Total+Isoenzymes, Serum Today M79.10 - Myalgia, unspecified site Complete Blood Count Auto Diff Today M79.10 - Myalgia, unspecified site Erythrocyte Sedimentation Rate Today M79.10 - Myalgia, unspecified site Comprehensive Met. Panel Today M79.10 - Myalgia, unspecified site C Reactive Protein Today M79.10 - Myalgia, unspecified site Medications: Changed From furosemide 20 mg PO DAILY 90 tabs 1RF To furosemide 20 mg PO DAILY PRN Coding Level of Care Code Est Pt Level 3 (22111) Diagnoses Myalgia M79.10 Additional Codes ELISEO-7 Assessment Billing - ELISEO-7 Assessment Tool: ELISEO-7 Assessment [id number] ([id number])
[2024-05-20 11:58] VITALS: BP 122/76; PULSE 54; O2SAT 94; BMI 21.8
== END 2024-05-20 12:32 | disposition home or self-care (01) ==
PROVIDERS: PCP Internal Medicine; Visit Provider Internal Medicine
DX: M79.10 Myalgia, unspecified site (principal)
CPT/HCPCS: 99213

== ENCOUNTER 2024-05-20 12:46 | Outpatient (REF) | payer MEDICARE, OTHER, SELFPAY ==
[2024-05-20 15:58] LABS: MANUAL DIFF FLAG NO
[2024-05-20 16:00] LABS: Basophils Absolute Auto 0.1 X10*3/uL (0.0-0.2); Basophils Percent Auto 0.8 % (0-2); Eosinophils Absolute Auto 0.4 X10*3/uL (0.0-0.4); Eosinophils Percent Auto 3.9 % (0-4); Hematocrit 38.5 % (37.0-47.0); Hemoglobin 12.2 g/dl (12.0-16.0); Imm Gran Abs Auto 0.04 X10*3/uL (0.00-0.03); Imm Gran Pct Auto 0.4 % (0.0-0.4); Lymphocytes Absolute Auto 1.4 X10*3/uL (1.2-4.9); Lymphocytes Percent Auto 14.9 % (20-40); Mean Corpuscular HGB Conc 31.7 g/dl (31.0-35.0); Mean Corpuscular Hemoglobin 28.7 pg (27.0-33.0); Mean Corpuscular Volume 90.6 fL (80.0-98.0); Mean Platelet Volume 9.6 fL (9.4-12.3); Monocytes Absolute Auto 0.8 X10*3/uL (0.1-1.2); Monocytes Percent Auto 8.4 % (2-11); Neutrophils Absolute Auto 6.5 x10*3/uL (2.0-8.3); Neutrophils Percent Auto 71.6 % (45-73); Platelet Count 182 X10*3/uL (160-400); Red Blood Count 4.25 X10*6/uL (4.20-5.50); Red Cell Distribution Width 13.8 % (11.0-16.0); White Blood Count 9.1 X10*3/uL (4.8-10.8)
[2024-05-20 16:39] LABS: Alanine Aminotransferase 47 U/L (0-31); Albumin Level 4.1 g/dL (3.5-5.0); Alkaline Phosphatase 143 U/L (39-117); Anion Gap 12 (12-20); Aspartate Amino Transferase 45 U/L (5-31); Bilirubin Total 0.3 mg/dL (0.0-1.0); Blood Urea Nitrogen 32 mg/dL (9-16); C Reactive Protein 0.18 mg/dL (< or = 0.50); Calcium 10.8 mg/dL (8.4-10.2); Carbon Dioxide 28 mmol/L (22-29); Chloride 105 mmol/L (96-108); Estimated Glomerular Filt Rate 40; Glucose Random 92 mg/dL (60-115); Potassium 5.4 mmol/L (3.3-5.1); Sodium 140 mmol/L (135-145); Total Protein 7.4 g/dL (6.5-8.0)
[2024-05-20 16:53] LABS: Erythrocyte Sedimentation Rate 40 MM/HR (0-20)
[2024-05-20 16:55] LABS: Vitamin D 25-OH Total 41.9 ng/mL (>30)
[2024-05-21 05:53] LABS: Parathyroid Hormone Intact 78.8 pg/mL (8.7-77.1)
[2024-05-22 19:23] LABS: Calcium, Ionized 5.5 mg/dL (4.7-5.5)
[2024-05-23 23:38] LABS: CK-BB None Detected (None Detected); CK-MB 0 % (<5); CK-MM 100 % (95-100); Creatine Kinase,Total,Serum 33 U/L (29-143)
== END 2024-05-20 12:47 | disposition home or self-care (01) ==
LOC: HO.HMGCLDS 12:46
PROVIDERS: PCP Internal Medicine; Visit Provider Internal Medicine
DX: N18.30 Chronic kidney disease, stage 3 unspecified (principal); I48.0 Paroxysmal atrial fibrillation; J44.9 Chronic obstructive pulmonary disease, unspecified; I10 Essential (primary) hypertension; E83.52 Hypercalcemia; M79.10 Myalgia, unspecified site
CPT/HCPCS: 36415; 80053; 82306; 82330; 82552; 83970; 85025; 85652; 86140

== ENCOUNTER 2024-06-05 13:46 | Outpatient (REF) | payer MEDICARE, OTHER, SELFPAY ==
[2024-06-05 16:22] LABS: MANUAL DIFF FLAG NO
[2024-06-05 16:30] LABS: Basophils Absolute Auto 0.1 X10*3/uL (0.0-0.2); Basophils Percent Auto 0.6 % (0-2); Eosinophils Absolute Auto 0.2 X10*3/uL (0.0-0.4); Eosinophils Percent Auto 1.8 % (0-4); Hematocrit 38.2 % (37.0-47.0); Hemoglobin 12.1 g/dl (12.0-16.0); Imm Gran Abs Auto 0.03 X10*3/uL (0.00-0.03); Imm Gran Pct Auto 0.4 % (0.0-0.4); Lymphocytes Absolute Auto 1.3 X10*3/uL (1.2-4.9); Lymphocytes Percent Auto 15.3 % (20-40); Mean Corpuscular HGB Conc 31.7 g/dl (31.0-35.0); Mean Corpuscular Hemoglobin 28.8 pg (27.0-33.0); Mean Platelet Volume 9.2 fL (9.4-12.3); Monocytes Absolute Auto 0.7 X10*3/uL (0.1-1.2); Monocytes Percent Auto 8.5 % (2-11); Neutrophils Absolute Auto 6.1 x10*3/uL (2.0-8.3); Neutrophils Percent Auto 73.4 % (45-73); Platelet Count 201 X10*3/uL (160-400); Red Cell Distribution Width 13.9 % (11.0-16.0); White Blood Count 8.3 X10*3/uL (4.8-10.8)
[2024-06-05 16:52] LABS: Alanine Aminotransferase 42 U/L (0-31); Albumin Level 4.1 g/dL (3.5-5.0); Alkaline Phosphatase 120 U/L (39-117); Anion Gap 15 (12-20); Aspartate Amino Transferase 31 U/L (5-31); Bilirubin Total 0.3 mg/dL (0.0-1.0); Blood Urea Nitrogen 32 mg/dL (9-16); Calcium 9.7 mg/dL (8.4-10.2); Carbon Dioxide 24 mmol/L (22-29); Chloride 105 mmol/L (96-108); Estimated Glomerular Filt Rate 43; Glucose Random 88 mg/dL (60-115); Potassium 4.9 mmol/L (3.3-5.1); Sodium 139 mmol/L (135-145); Total Protein 7.4 g/dL (6.5-8.0)
== END 2024-06-05 13:47 | disposition home or self-care (01) ==
LOC: HO.HMGCLDS 13:46
PROVIDERS: PCP Internal Medicine; Visit Provider Internal Medicine
DX: M79.10 Myalgia, unspecified site (principal); E87.5 Hyperkalemia
CPT/HCPCS: 36415; 80053; 85025

== ENCOUNTER 2024-07-16 08:59 | Outpatient (AMB) | payer MEDICARE, OTHER, SELFPAY ==
[2024-07-16 09:02] VITALS: BP 136/80; PULSE 59; O2SAT 98; BMI 22.5
--- NOTE | 2024-07-16 09:03 | AM.OFFVISMDC ---
Intake Vital Signs 07/16/24 09:02 Height 5 ft 4 in Weight 131 lb BMI 22.5 BP 136/80 Blood Pressure Location Lt brachial Position Sitting Pulse 59 Pulse Source Pulse Oximeter Pulse Oximetry (%) 98 Oxygen Delivery Method Room Air Intake Visit Reasons: SWV [id number] Allergies No Known Allergies [No Known Allergies*] Allergy (Verified 07/16/24 09:16) Medication List - Last Reconciled 07/16/24 by Sally Villagomez MD albuterol sulfate 90 mcg/actuation 2 puffs inhalation Q6H PRN amlodipine 10 mg PO DAILY apixaban (Eliquis) 5 mg PO BID atorvastatin 80 mg PO BEDTIME buprenorphine 15 mcg/hour 1 patch topical TH citalopram 20 mg PO DAILY diphenoxylate-atropine 2.5-0.025 mg 1 tab PO Q6H PRN etanercept 50 mg subcut BAH furosemide 20 mg PO DAILY PRN gabapentin 300 mg PO TID lidocaine 5% 1 patch topical DAILY lisinopril 10 mg PO DAILY metoprolol tartrate 50 mg PO BID omeprazole 40 mg PO DAILY umeclidinium-vilanterol 62.5-25 mcg/actuation (Anoro Ellipta) 1 inh inhalation DAILY HPI SWV [id number] HPI Details Initiated the conversation about Advanced Directives. Advanced Directives help? patients prepare for current and future decisions about their medical treatment? and place of care. Discussed with patient that it is a process where a patients? current condition and prognosis are reviewed, their wishes for information? regarding their illness are elicited, and likely medical dilemmas are presented? and options discussed. The form can be amended as needed, reviewed yearly and? make changes as needed IPPE/AWV ? year old presents? for her ? Annual? Wellness Visit, initial visit.? Medical / Social History Reviewed? Past Medical History ?Yes? . ? [facility] Ira? of Care / Care Team list updated ?Yes . ? Surgical/Hospitalization? History ?Yes . ? Current Medications? (including OTC and supplements) ?Yes . ? Family History ?Yes? . ? Tobacco? Control form ?Yes . ? AUDIT-C (Alcohol use) form? ?Yes . ? Illicit drug use in Social? History ?Yes . ? Current diagnosis of? depression? ?No ? Appropriate PHQ2/PHQ9? completed ?Yes . ? Data entered by ?Medical? Contract Management Specialist and reviewed by provider ? Fall Risk ? Fall? History? Have you had any falls with? injury in the past year? ?No . ? Have you had two or more? falls in the past year? ?No . ? Fall Risk Assessment: ?No? falls in the past year . ? HRA filled out by? the patient, reviewed by Provider and scanned. ? IPPE/AWV ? Balance? [place]? ?Yes . ? Tandem? walk ?Yes . ? Walk and? Turn ?Yes . ? Rise from? sit to stand ?Yes . ?Vision? Corrective? lens ?Yes ? Vision? screen ? Up-to-date, has an appointment [] for vision? screening and glaucoma screening ?Hearing? Whisper? test ?pass .? Initiated the conversation about Advanced Directives. Advanced Directives help? patients prepare for current and future decisions about their medical treatment? and place of care. Discussed with patient that it is a process where a patients? current condition and prognosis are reviewed, their wishes for information? regarding their illness are elicited, and likely medical dilemmas are presented? and options discussed. The form can be amended as needed, reviewed yearly and? make changes as needed Written? Plan?Completed. See Patient? Documents. [facility] Medical History CKD (chronic kidney disease) stage 3, GFR 30-59 ml/min PAF (paroxysmal atrial fibrillation) Anemia Diarrhea Annual physical exam Weight loss Vitamin D deficiency Vertigo Obstructive sleep apnea Carotid stenosis, right Venous insufficiency of both lower extremities Status post CVA Compression fracture Osteoporosis History of IBS Lumbar stenosis Spondyloarthropathy Hyperlipidemia Depression COPD (chronic obstructive pulmonary disease) HTN (hypertension) Surgical History History of esophagogastroduodenoscopy (EGD) History of abdominal surgery Hx of cholecystectomy History of shoulder surgery History of oophorectomy History of hysterectomy H/O colonoscopy Family History Father No problems noted. Mother Colon cancer Sister Metastatic cancer Social History Household Members: Family Household Members Other:: 1 Housing: Condominium Do you presently have visiting nurse or other home services: No Alcohol intake: never Patient Tobacco Use Status: Never used Tobacco e-Cigarette/Vaping Use: Never Used Second Hand Smoke Exposure: No service: No Current occupational status: retired Cognitive needs: No Hearing needs: No Vision needs: No Questionnaire Medicare Wellness Checkup What is your age?: 79 or older What gender do you identify with?: female During the past 4 weeks, how much have you been bothered by emotional problems such as feeling anxious, depressed, irritable, sad or downhearted, and blue?: not at all During the past 4 weeks, has your physical & emotional health limited your social activities with family, friends, neighbors, or groups?: not at all During the past 4 weeks, how much bodily pain have you generally had?: moderate pain During the past 4 weeks, was someone available to help you if you needed & wanted help?: yes, as much as I wanted During the past 4 weeks, what was the hardest physical activity you could do for at least 2 minutes?: moderate Can you get to places out of walking distance without help? (For eg., can you travel alone on buses, taxis or drive your car?): Yes Can you go shopping for groceries or clothes without someone's help?: Yes Can you prepare your own meals?: Yes Can you do your housework without help?: Yes Because of any health problems, do you need the help of another person with your personal care needs such as eating, bathing, dressing or getting around the house?: No Can you handle your own money without help?: Yes During the past 4 weeks, how would you rate your health in general?: good During the past 4 weeks how have things been going for you?: good & bad parts about equal Are you having difficulties driving your car?: no Do you always fasten your seat belt when you are in a car?: yes, usually During past 4 weeks, have you been bothered by the following: never: Sexual problems?, Trouble eating well?, Teeth or denture problems? and Problems using the telephone?, seldom: Falling or dizzy when standing up and sometimes: Tiredness or fatigue? Have you fallen 2 or more times in the past year?: No Are you afraid of falling?: Yes Are you a smoker?: no During the past 4 weeks, how many drinks of wine, beer, or other alcoholic beverages did you have?: no alcohol at all Do you exercise for about 20 minutes 3 or more times a week?: no, I usually do not exercise this much Have you been given information to help with the following?: no: Hazards in your house that might hurt you? and no: Keeping track of your medications? How often do you have trouble taking medicines the way you have been told to take them?: I always take medicine as prescribed How confident are you that you can control & manage most of your health problems?: very confident What is your race?: White Mini Mental State Exam (MMSE) Orientation What is the (year) (season) (date) (day) (month)?: year, season, date, day and month Where are we (state) (county) (town or city) (hospital) (floor)?: state, county, town or city, hospital/clinic and floor Registration Name of 3 unrelated objects clearly and slowly, then ask patient to repeat all 3 of them. (1st repeat determines score. Make sure they can repeat all three): object 1, object 2 and object 3 Attention & Calculation (CHOOSE ONE) Spell WORLD backwards (DLROW): 5 letters Recall Ask patient to repeat the 3 items from question #3.: object 1, object 2 and object 3 Language Show patient a wristwatch & ask what it is. Repeat for pencil.: watch and pencil Ask the patient to repeat the phrase 'No ifs, ands, or buts' after you.: correct Ask the patient to 'take a piece of paper with their right hand' 'fold paper in half' 'place paper on floor': take paper in right hand, fold paper in half and place paper on floor Print the sentence 'CLOSE YOUR EYES' on a piece. If patient actually closes eyes then score.: followed written direction Give patient a blank piece of paper & ask to write a sentence. Score if it contains a noun & verb.: sentence contains subject and verb Score Score: 29 Activity of Daily Living Bathing - sponge bath, tub bath or shower: receives no assistance (gets in/out by self, if usual bathing means Dressing - getting clothes from closets & drawers, including inner/outer garments & fasteners.: gets clothes & gets completely dressed without help Toileting - going to the 'toilet room' for urine/bowel elimination & cleaning self/arranging clothes: goes to toilet room, cleans self, arranges clothes without help Transfer: moves in & out of bed and chair without help (may use support object) Continence: controls urination/bowel movements completely by self Feeding: feeds self without help Total Score: 0 Information obtained from: patient Using telephone: independent Traveling: independent Shopping: independent Preparing meals: independent Housework: independent Taking medicine: independent Managing money: independent PHQ-9 Over the last 2 weeks, how often have you been bothered by any of the following problems? 1. Little interest or pleasure in doing things: not at all 2. Feeling down, depressed, or hopeless: not at all 3. Trouble falling or staying asleep, or sleeping too much: more than half the days 4. Feeling tired or having little energy: not at all 5. Poor appetite or overeating: not at all 6. Feeling bad about yourself - or that you are a failure or have let yourself or your family down: not at all 7. Trouble concentrating on things, such as reading the newspaper or watching television: not at all 8. Moving or speaking so slowly that other people could have noticed. Or the opposite - being so fidgety or restless that you have been moving around a lot more than usual: not at all 9. Thoughts that you would be better off or of hurting yourself in some way: not at all Total score: 2 Depression Screening Interpretation: Negative Depression Screening Done: Yes [id number] - PHQ-9 Billing: Yes Source: Developed by Drs. Enio Baltazar, Keely Turpin, Zach Anders and colleagues, with an educational zenia from [employer]. Review of Systems Const All systems reviewed & are unremarkable except as noted in HPI and below Reports no additional complaints Eyes Reports no additional complaints ENT Reports no additional complaints Card Reports no additional complaints Resp Reports no additional complaints GI Reports no additional complaints Reports no additional complaints Physical Exam Vital Signs: Last Vital Signs Pulse 59 07/16/24 09:02 BP 136/80 07/16/24 09:02 Pulse Ox 98 07/16/24 09:02 Oxygen Delivery Method Room Air 07/16/24 09:02 BMI result Body Mass Index 22.5 Const General: no acute distress HEENT Head: Yes normal to inspection Ears: hearing grossly normal bilaterally Neck Neck: Yes no lymphadenopathy and Yes supple Resp Effort & Inspection: normal respiratory effort Auscultation: clear to auscultation bilaterally Cardio Rhythm: regular rhythm Heart sounds: S1 normal heart sound present and S2 normal heart sound present GI Inspection: Yes normal to inspection Palpation (GI): Soft to palpation Percussion: Yes normal to percussion Auscultation: normal bowel sounds Extrem General: Yes no clubbing, cyanosis or edema Assessment & Plan Assessment & Plan (1) Dysplastic nevi: Comment: back Code(s): D23.9 - Other benign neoplasm of skin, unspecified Plan: refer to dermatology (2) HTN (hypertension): Code(s): I10 - Essential (primary) hypertension Plan: Continue current medications (3) COPD (chronic obstructive pulmonary disease): Comment: PFT 11/04 Code(s): J44.9 - Chronic obstructive pulmonary disease, unspecified Plan: Continue Anoro (4) CKD (chronic kidney disease) stage 3, GFR 30-59 ml/min: Comment: follow-up Dr. Eduardo Code(s): N18.30 - Chronic kidney disease, stage 3 unspecified Plan: Avoid nephrotoxins monitor renal function follow-up with nephrology (5) Anemia: Comment: Chronic iron deficiency anemia negative GI workup Code(s): D64.9 - Anemia, unspecified Plan: Monitor CBC (6) Annual physical exam: Code(s): Z00.00 - Encounter for general adult medical examination without abnormal findings Plan: Well-balanced diet regular physical activity discussed with the patient. (7) PAF (paroxysmal atrial fibrillation): Comment: 08/05, Echo nl LVEF, mild pul HTN Code(s): I48.0 - Paroxysmal atrial fibrillation Plan: Continue beta tania and Eliquis follow-up with the Cardiology Orders: Orders Comprehensive [place]. Panel Fast 6 Months D64.9 - Anemia, unspecified, I10 - Essential (primary) hypertension, I48.0 - Paroxysmal atrial fibrillation, J44.9 - Chronic obstructive pulmonary disease, unspecified, N18.30 - Chronic kidney disease, stage 3 unspecified, Z00.00 - Encounter for general adult medical examination without abnormal findings Lipid Panel 6 Months D64.9 - Anemia, unspecified, I10 - Essential (primary) hypertension, I48.0 - Paroxysmal atrial fibrillation, J44.9 - Chronic obstructive pulmonary disease, unspecified, N18.30 - Chronic kidney disease, stage 3 unspecified, Z00.00 - Encounter for general adult medical examination without abnormal findings Complete Blood Count Auto Diff 6 Months D64.9 - Anemia, unspecified, I10 - Essential (primary) hypertension, I48.0 - Paroxysmal atrial fibrillation, J44.9 - Chronic obstructive pulmonary disease, unspecified, N18.30 - Chronic kidney disease, stage 3 unspecified, Z00.00 - Encounter for general adult medical examination without abnormal findings Vitamin D 25-OH Total 6 Months D64.9 - Anemia, unspecified, I10 - Essential (primary) hypertension, I48.0 - Paroxysmal atrial fibrillation, J44.9 - Chronic obstructive pulmonary disease, unspecified, N18.30 - Chronic kidney disease, stage 3 unspecified, Z00.00 - Encounter for general adult medical examination without abnormal findings Referrals Dermatology Referral D23.9 - Other benign neoplasm of skin, unspecified Medications: Changed From citalopram 30 mg (1.5 x 20 mg) PO DAILY 135 tabs 3RF To citalopram 20 mg PO DAILY Quality Reporting (2019) Depression/Bipolar (159/160/161/177) PHQ-9: Total score: 2 Coding Level of Care Code Medicare Subsequent (G0439) Diagnoses Dysplastic nevi D23.9 HTN (hypertension) I10 COPD (chronic obstructive pulmonary disease) J44.9 CKD (chronic kidney disease) stage 3, GFR 30-59 ml/min N18.30 Anemia D64.9 Annual physical exam Z00.00 PAF (paroxysmal atrial fibrillation) I48.0 CPT Codes Advance Care Planning - Advance Care Planning discussion: On file, no changes ([id number]) Advance Care Planning - Time spent: 1-15 minutes, on File ([id number]) Advance Care Planning Advance Care Planning discussion: On file, no changes Forms completed: Health Care Proxy Time spent: 1-15 minutes, on File
== END 2024-07-16 09:45 | disposition home or self-care (01) ==
PROVIDERS: PCP Internal Medicine; Visit Provider Internal Medicine
DX: Z00.00 Encounter for general adult medical examination without abnormal findings (principal); I12.9 Hypertensive chronic kidney disease with stage 1 through stage 4 chronic kidney disease, or unspecified chronic kidney disease; J44.9 Chronic obstructive pulmonary disease, unspecified; N18.30 Chronic kidney disease, stage 3 unspecified; I48.0 Paroxysmal atrial fibrillation; D64.9 Anemia, unspecified; D23.9 Other benign neoplasm of skin, unspecified
CPT/HCPCS: 1123F; G0439

== ENCOUNTER 2025-01-22 11:00 | Outpatient (AMB) | payer MEDICARE, OTHER, SELFPAY ==
--- NOTE | 2025-01-22 11:04 | MHC.PC.OV ---
Vital Signs 01/22/25 11:07 Height 5 ft 4 in Weight 127 lb BMI 21.8 BP 130/80 Blood Pressure Location Lt brachial Position Sitting Pulse 62 Pulse Source Pulse Oximeter Temp 97.8 F Temp Source Oral Pulse Oximetry (%) 98 Intake Visit Reasons: 6 months Follow up Intake Note: pt is here for 6 mon f.up Quality Director Required: No Accompanied by: Self / Same As Patient Allergies No Known Allergies [No Known Allergies*] Allergy (Verified 01/22/25 11:08) Medication List - Last Reconciled 01/22/25 by Sally Villagomez MD albuterol sulfate 90 mcg/actuation 2 puffs inhalation Q6H PRN amlodipine 10 mg PO DAILY apixaban (Eliquis) 5 mg PO BID atorvastatin 80 mg PO BEDTIME buprenorphine 15 mcg/hour 1 patch topical TH citalopram 20 mg PO DAILY diphenoxylate-atropine 2.5-0.025 mg 1 tab PO Q6H PRN ergocalciferol (vitamin D2) 1,250 mcg PO QWEEK etanercept 50 mg subcut BAH furosemide 20 mg PO DAILY PRN gabapentin 300 mg PO TID lidocaine 5% 1 patch topical DAILY lisinopril 10 mg PO DAILY metoprolol tartrate 50 mg PO BID omeprazole 40 mg PO DAILY tramadol mg PO umeclidinium-vilanterol 62.5-25 mcg/actuation (Anoro Ellipta) 1 inh inhalation DAILY Tobacco use date assessed: 01/22/25 Fall risk assessment: No Falls in past year Last assessed Fall Risk: 01/22/25 Dental Screening Dental Screen Date: 01/22/25 Did you have a dental visit in the last 12 months?: No Did you have a dental problem in the last 6 months where you did not have access to dental care?: No Was dental information given to patient?: Patient declined HPI 6 months Follow up HPI Details Patient presents for the follow-up of hypertension hyperlipidemia chronic kidney disease stage 3, COPD , chronic pain and rheumatoid arthritis 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 [facility] Medical History CKD (chronic kidney disease) stage 3, GFR 30-59 ml/min PAF (paroxysmal atrial fibrillation) Anemia Diarrhea Annual physical exam Weight loss Vitamin D deficiency Vertigo Obstructive sleep apnea Carotid stenosis, right Venous insufficiency of both lower extremities Status post CVA Compression fracture Osteoporosis History of IBS Lumbar stenosis Spondyloarthropathy Hyperlipidemia Depression COPD (chronic obstructive pulmonary disease) HTN (hypertension) Surgical History History of esophagogastroduodenoscopy (EGD) History of abdominal surgery Hx of cholecystectomy History of shoulder surgery History of oophorectomy History of hysterectomy H/O colonoscopy Family History Father No problems noted. Mother Colon cancer Sister Metastatic cancer Social History Household Members: Family Household Members Other:: 1 Housing: Condominium Do you presently have visiting nurse or other home services: No Alcohol intake: never Patient Tobacco Use Status: Never used Tobacco e-Cigarette/Vaping Use: Never Used Second Hand Smoke Exposure: No service: No Current occupational status: retired Cognitive needs: No Hearing needs: No Vision needs: No Questionnaire PHQ-9 Over the last 2 weeks, how often have you been bothered by any of the following problems? 1. Little interest or pleasure in doing things: not at all 2. Feeling down, depressed, or hopeless: not at all 3. Trouble falling or staying asleep, or sleeping too much: nearly every day 4. Feeling tired or having little energy: several days 5. Poor appetite or overeating: several days 6. Feeling bad about yourself - or that you are a failure or have let yourself or your family down: not at all 7. Trouble concentrating on things, such as reading the newspaper or watching television: several days 8. Moving or speaking so slowly that other people could have noticed. Or the opposite - being so fidgety or restless that you have been moving around a lot more than usual: not at all 9. Thoughts that you would be better off or of hurting yourself in some way: not at all Total score: 6 Depression Screening Interpretation: Negative Depression Screening Done: Yes 63164 - PHQ-9 Billing: Yes Source: Developed by Drs. Enio Baltazar, Keeyl Turpin, Zach Anders and colleagues, with an educational zenia from [employer]. Thrive Questionnaire Date Thrive assessed: 01/22/25 I am a: Patient What is your living situation today?: I have a steady place to live Within the past 12 months, did the food you bought not last and you didn't have the money to get more?: Never true Within the past 12 months, did you worry whether your food would run out before you got money to buy more?: Never true Do you have trouble paying for medicines?: No Do you have trouble getting transportation to medical appointments?: No Do you have trouble paying your heating and electricity bill?: No Do you have trouble taking care of your child, family member or friend?: No Do you have trouble with day-to-day activities such as bathing, preparing meals, shopping, managing finances, etc.?: No Are you currently unemployed and looking for a job?: No Are you interested in more education?: No Please select the resources that you would like help with: None Currently or been in a relationship where the following occur: No concerns reported THRIVE Score: 0 AUDIT C Alcohol Use Questionnaire (AUDIT-C) 1. How often do you have a drink containing alcohol?: Monthly or less 2. How many drinks containing alcohol do you have on a typical day when you are drinking?: 1 or 2 3. How often do you have six or more drinks on one occasion?: Never Total Score: 1 Score Reviewed/Action Taken: Yes ELISEO-7 AMB Questionnaire ELISEO-7 Date ELISEO - 7 assessed: 01/22/25 Feeling nervous, anxious, or on edge: 0 = Not at all Not being able to stop or control worryin = Not at all Worrying too much about different things: 1 = Several days Trouble relaxin = Not at all Being so restless that it is hard to sit still: 0 = Not at all Becoming easily annoyed or irritable: 0 = Not at all Feeling afraid as if something awful might happen: 0 = Not at all Total ELISEO-7 score (0-4 normal; 5-9 mild; 10-14 moderate; 15-21 severe): 1 Source: Developed by Drs. Enio Baltazar, Keely Turpin, Zach Anders and colleagues, with an educational zenia from [employer]. ELISEO-7 Assessment Billing ELISEO-7 Assessment Tool: ELISEO-7 Assessment 58521 Review of Systems Const All systems reviewed & are unremarkable except as noted in HPI and below ENT Reports no additional complaints Card Reports no additional complaints GI Reports no additional complaints Reports no additional complaints Physical exam (Primary Care) Vital Signs: Last Vital Signs Temp 97.8 F 01/22/25 11:07 Pulse 62 01/22/25 11:07 BP 130/80 01/22/25 11:07 Pulse Ox 98 01/22/25 11:07 BMI result Body Mass Index 21.8 Tobacco/Smoking Status: Tobacco use Status Tobacco use date assessed 01/22/25 01/22/25 11:09 Patient Tobacco Use Status Never used Tobacco 01/22/25 11:07 e-Cigarette/Vaping Use Never Used 01/22/25 11:07 PHQ-9: PHQ-9 Score PHQ-9: Total score 6 01/22/25 11:09 Depression Screening Interpretation: Negative Thrive Assessment: Date of Thrive Assessment Date Thrive assessed 01/22/25 01/22/25 11:09 Currently or been in a relationship where the following occur: No concerns reported Const General: no acute distress HENMT Face and sinus: Yes normal facial exam Eyes General: appearance normal, both eyes and all related structures Resp Effort & Inspection: normal respiratory effort Auscultation: clear to auscultation bilaterally Cardio Rhythm: regular rhythm Heart sounds: S1 normal heart sound present and S2 normal heart sound present GI Inspection: Yes normal to inspection Palpation (GI): Soft to palpation Percussion: Yes normal to percussion Auscultation: normal bowel sounds Coding Level of Care Code Est Pt Level 5 (74165) Complex EM visit Add On G2211 Diagnoses CKD (chronic kidney disease) stage 3, GFR 30-59 ml/min N18.30 PAF (paroxysmal atrial fibrillation) I48.0 COPD (chronic obstructive pulmonary disease) J44.9 Vitamin D deficiency E55.9 Hyperlipidemia E78.5 HTN (hypertension) I10 Obstructive sleep apnea G47.33 Additional Codes ELISEO-7 Assessment Billing - ELISEO-7 Assessment Tool: ELISEO-7 Assessment 38849 ([id number]) PHQ-9 - 49162 - PHQ-9 Billing: Yes ([id number]) Assessment & Plan Assessment & Plan (1) CKD (chronic kidney disease) stage 3, GFR 30-59 ml/min: Comment: follow-up Dr. Eduardo Code(s): N18.30 - Chronic kidney disease, stage 3 unspecified Category: Medical Plan: Avoid nephrotoxins monitor renal function (2) PAF (paroxysmal atrial fibrillation): Comment: 08/05, Echo nl LVEF, mild pul HTN Code(s): I48.0 - Paroxysmal atrial fibrillation Category: Medical Plan: Continue beta tania and Eliquis for anticoagulation (3) COPD (chronic obstructive pulmonary disease): Comment: PFT 11/04 Code(s): J44.9 - Chronic obstructive pulmonary disease, unspecified Category: Medical Plan: Continue Anoro (4) Vitamin D deficiency: Code(s): E55.9 - Vitamin D deficiency, unspecified Category: Medical Plan: Patient has been taking high dose of vitamin-D weekly for the last 5 weeks vitamin-D level will be checked (5) Hyperlipidemia: Code(s): E78.5 - Hyperlipidemia, unspecified Category: Medical Plan: Continue statin (6) HTN (hypertension): Code(s): I10 - Essential (primary) hypertension Category: Medical Plan: Continue current medications (7) Obstructive sleep apnea: Comment: on CPAP, follow-up by [facility] Code(s): G47.33 - Obstructive sleep apnea (adult) (pediatric) Category: Medical Plan: Continue CPAP Orders: Orders Lipid Panel Today E55.9 - Vitamin D deficiency, unspecified, I48.0 - Paroxysmal atrial fibrillation, J44.9 - Chronic obstructive pulmonary disease, unspecified, N18.30 - Chronic kidney disease, stage 3 unspecified Vitamin D 25-OH Total Today E55.9 - Vitamin D deficiency, unspecified, I48.0 - Paroxysmal atrial fibrillation, J44.9 - Chronic obstructive pulmonary disease, unspecified, N18.30 - Chronic kidney disease, stage 3 unspecified Comprehensive [place]. Panel Fast Today E55.9 - Vitamin D deficiency, unspecified, I48.0 - Paroxysmal atrial fibrillation, J44.9 - Chronic obstructive pulmonary disease, unspecified, N18.30 - Chronic kidney disease, stage 3 unspecified TSH reflex Free T4 Today E55.9 - Vitamin D deficiency, unspecified, I48.0 - Paroxysmal atrial fibrillation, J44.9 - Chronic obstructive pulmonary disease, unspecified, N18.30 - Chronic kidney disease, stage 3 unspecified
[2025-01-22 11:07] VITALS: BP 130/80; PULSE 62; TEMP 36.6; O2SAT 98; BMI 21.8
--- OUTSIDE RECORDS SUMMARY | 2025-01-22 12:55 | XMS_ITS | Encounter Summary ---
Author Organization [facility] Address [address] [place] [address] Care Team Providers Care Process Safety Specialist Name Role Phone Sally Villagomez MD Primary Care Provider Reason for Visit * Reason Comments Medication Refill Encounter Details Date Type Department Care Team ([facility] st Contact Info) Description 08/22/2020 Refill [facility] [address] [facility] [address] [place] [id number] Elton Henning MD [facility] [address] [place] [address] Functional diarrhea Social History Tobacco Use Types Packs/Day Years Used Date Smoking Tobacco: Never Smokeless Tobacco: Never Alcohol Use Standard Drinks/Week Comments Not Currently 0 (1 standard drink = 0.6 oz pur e alcohol) Sex and Gender Information Value Date Recorded Sex Assigned at Not on file Gender Identity Not on file Sexual Orientation Not on file documented as of this encounter Miscellaneous Notes * Telephone Encounter - JASPER Ruano - 08/24/2020 12:53 PM EDT Unable to sign Its isnt accepting my code * Telephone Encounter - Dianne Dan MA - 08/24/2020 11:15 AM EDT She's scheduled for 09/[address] Dickens * Telephone Encounter - Dianne Dan MA - 08/24/2020 10:52 AM EDT LYNDON 09/26/19 No known allergies documented in this encounter Plan of Treatment Not on file documented as of this encounter Visit Diagnoses Diagnosis Functional diarrhea documented in this encounter Care Teams Process Safety Specialist Relationship Specialty Start Date End Date Sally Villagomez MD [address] [place] [id number] PCP - General 07/09/19 documented as of this encounter
--- OUTSIDE RECORDS SUMMARY | 2025-01-22 12:55 | XMS_ITS | Clinical Summary ---
Author Organization [facility] Address [address] [place] [address] Care Team Providers Care Assistant Toddler Teacher Name Role Phone Sally Villagomez MD Primary Care Provider [phone] Allergies No known active allergies Medications Medication Sig Dispensed Refills Start Date End Date Status Etanercept (ENBREL SC) Inject 50 mg under the skin every 7 days. 0 Active Buprenorphine (BUTRANS) 15 MCG/HR PTWK Place 15 mcg onto the skin every 7 days. 0 Active gabapentin (NEURONTIN) 300 MG capsule Take 300 mg by mouth daily. 0 Active citalopram (CELEXA) 40 MG tablet Take 40 mg by mouth daily. 0 Active fenofibrate (TRICOR) tablet 145 mg Take 145 mg by mouth daily. 0 Active losartan (COZAAR) tablet 50 mg Take 50 mg by mouth daily. 0 Active Social History Tobacco Use Types Packs/Day Years Used Date Smoking Tobacco: Former Smokeless Tobacco: Never Comments:quit 30 years ago Alcohol Use Standard Drinks/Week Comments Yes 0 (1 standard drink = 0.6 oz pur e alcohol) rarely Sex and Gender Information Value Date Recorded Sex Assigned at Not on file Gender Identity Not on file Sexual Orientation Not on file Last Filed Vital Signs Vital Sign Reading Time Taken Comments Blood Pressure 162/73 10/18/2017 9:15 AM EST Pulse 60 10/18/2017 9:15 AM EST Temperature 36.1 ??C (96.9 ??F) 10/18/2017 8:50 AM ES T Respiratory Rate 16 10/18/2017 9:30 AM EST Oxygen Saturation 97% 10/18/2017 9:10 AM EST Inhaled Oxygen Concentration - - Weight 71.7 kg (158 lb) 10/18/2017 7:15 AM EST Height 160 cm (5' 3 ) 10/18/2017 7:15 AM EST Body Mass Index 27.99 10/18/2017 7:15 AM EST Plan of Treatment Not on file Advance Directives For more information, please contact: [phone] Latest Code Status on File Code Status Date Activated Date Inactivated Comments Full Code 10/18/2017 8:46 AM 10/18/2017 3:40 PM This code status was ascertained in the following way: discussion with patient. Care Teams Assistant Toddler Teacher Relationship Specialty Start Date End Date Sally Villagomez MD [address] [facility] [place] [phone] PCP - General Pedigree Tracer 10/16/17
--- OUTSIDE RECORDS SUMMARY | 2025-01-22 12:55 | XMS_ITS | Clinical Summary ---
Author Organization [facility] Address [address] [place] [id number] Care Team Providers Care Political Science Chair Name Role Phone Sally Villagomez MD Primary Care Provider [phone] Surgical History Surgery Date Site/Laterality Comments HYSTERECTOMY PROCEDURE:HYSTERECTOMY OTHER SURGICAL HISTORY PROCEDURE:ovarian sx;COMMENT:ovarian tumor OTHER SURGICAL HISTORY PROCEDURE:abdominal sx;COMMENT:for adhesions LAPAROSCOPY DIAGNOSTIC / BIOPSY / ASPIRATION / LYSIS PROCEDURE:DIAGNOSTIC LAPAROSCOPY CHOLECYSTECTOMY PROCEDURE:CHOLECYSTECTOMY COLONOSCOPY 10/18/2017 N/A PROCEDURE:COLONOSCOPY;COMMENT :Procedure: COLONOSCOPY; Surgeon: Elton Henning MD; Location: [facility]; Service: Gastroenterology; Laterality: N/A; UPPER GASTROINTESTINAL ENDOSCOPY 10/18/2017 N/A PROCEDURE:UPPER GASTROINTESTINAL ENDOSCOPY;COMMENT:Procedure: UPPER ENDOSCOPY-EGD; Surgeon: Elton Henning MD; Location: [facility]; Service: Gastroenterology; Laterality: N/A; Medical History Medical History Date Comments RA (rheumatoid arthritis) ([facility]) DX:RA (rheumatoid arthritis) ([facility]) Anxiety DX:Anxiety Hypertension DX:Hypertension Fibromyalgia DX:Fibromyalgia Social History Tobacco Use Types Packs/Day Years Used Date Smoking Tobacco: Former Smokeless Tobacco: Never Alcohol Use Standard Drinks/Week Comments Yes 0 (1 standard drink = 0.6 oz pur e alcohol) Comments Unknown Sex and Gender Information Value Date Recorded Sex Assigned at Not on file Legal Sex Female 5:46 PM EST Gender Identity Not on file Sexual Orientation Not on file Obstetrics History Plan of Treatment Health Maintenance Due Date Last Done Comments DTaP,Tdap,and Td Vaccines (1 - Tdap) 1963 Pneumococcal Vaccine: 50+ Ye ars (1 of 1 - PCV) 1994 Zoster Vaccines (1 of 2) 1994 RSV Immunization Patients 60 + Years Old (1 - 1-dose 75+ series) 2019 COVID-19 Vaccine (2023-2 5 season) 2024 Influenza Vaccine (#1) 2024 HIB Vaccines Aged Out No longer eligi ble based on patient's age to complete this topic HPV Vaccines Aged Out No longer eligi ble based on patient's age to complete this topic Hepatitis A Vaccines Aged Out No long er eligible based on patient's age to complete this topic Hepatitis B Vaccines Aged Out No long er eligible based on patient's age to complete this topic IPV Vaccines Aged Out No longer eligi ble based on patient's age to complete this topic MMR Vaccines Aged Out No longer eligi ble based on patient's age to complete this topic Meningococcal ACWY Vaccine Aged Out N o longer eligible based on patient's age to complete this topic Meningococcal B Vacine Aged Out No lo nger eligible based on patient's age to complete this topic RSV Immunization Patients Un tigre 20 months Aged Out No longer eligible b ased on patient's age to complete this topic Varicella Vaccines Aged Out No longer eligible based on patient's age to complete this topic Care Teams Political Science Chair Relationship Specialty Start Date End Date Sally Villagomez MD PCP - General Electronic Assembler Group Leader 10/16/17
--- OUTSIDE RECORDS SUMMARY | 2025-01-22 12:55 | XMS_ITS ---
Author Organization [facility] Address [address] [place] [address] [place] [address] Care Team Providers Care Restaurant Greeter Name Role Phone aSlly Villagomez MD Primary Care Provider Unavaila Eitan Loyd [phone] REASON FOR VISIT 10.00 balance Encounters Encounter Location Date Provider Diagnosis [address] [address] 06/26/2024 Eitan Nolasco Plan Of Treatment Next Appt Details Provider Name:Eitan Nolasco , 02/17/2025 11:00:00 AM, [address] [facility], [place] [address], [place], [address], Progress Notes * Kandis HIGGINS ADOB: [birth year] (79 yo F)Acc No.[id number]:06/26/2024 Patient:?Kandis Higgins :1945???Age:78 Y???Sex:Female Address:[address] [place], [place] [address], [address] * true * Date:? Generated for Charlai barron/Lyly/eTransmitting on:?01/22/2025 12:55 PM EDT
--- OUTSIDE RECORDS SUMMARY | 2025-01-22 12:55 | XMS_ITS | Clinical Summary ---
Author Organization [facility] Address [address] [place] [address] Care Team Providers Care Uke Operator Name Role Phone Sally Villagomez MD Primary Care Provider [phone] Allergies No known active allergies Medications Medication Sig Dispensed Refills Start Date End Date Status amLODIPine (NORVASC) 2.5 MG tablet Take 7.5 mg by mouth daily. 3 07/24/2019 Active etanercept (ENBREL SURECLICK) 50 MG/ML subsutaneous injection Inject 50 mg under the skin. Active gabapentin (NEURONTIN) 300 MG capsule 2 CAPSULES EVERY IN THE MORNING , 1 AT 4PM AND 2 AT NIGHT AT AT BEDTIME 0 09/13/2019 Active diphenoxylate-atropin e (LOMOTIL) 2.5-0.025 MG per tabletIndications:Fun ctional diarrhea TAKE 1 TABLET BY MOUTH 4 (FOUR) TIMES A DAY NEEDED FOR DIARRHEA. 90 tablet 3 12/16/2020 Active Social History Tobacco Use Types Packs/Day [...] Sign Reading Time Taken Comments Blood Pressure 150/80 09/26/2019 11:42 AM EST Pulse - - Temperature - - Respiratory Rate - - Oxygen Saturation - - Inhaled Oxygen Concentration - - Weight 60.8 kg (134 lb) 09/26/2019 11:42 AM EST Height 162.6 cm (5' 4 ) 09/26/2019 11:42 AM EST Body Mass Index 23 09/26/2019 11:42 AM EST Plan of Treatment Health Maintenance Due Date Last Done Comments COVID-19 Vaccine (#1) 1949 Quantiferon Gold TB 1954 DTaP/Tdap/Td Vaccines (1 - Tdap) 1963 Pneumococcal Vaccines 50+ (1 of 2 - PCV) 1963 Zoster (Shingles) Vaccine (1 of 2) 1963 DXA Bone Density (Females,Ag es 65 and older) 2009 RSV Vaccine 60 years and old er and Patients (1 - 1-dose 75+ series) 2019 Influenza Vaccine 06/13/2024 Hepatitis B Vaccines Aged Out No long er eligible based on patient's age to complete this topic Care Teams Uke Operator Relationship Specialty Start Date End Date Sally Villagomez MD [address] [place] [address] PCP - General 07/09/19
--- OUTSIDE RECORDS SUMMARY | 2025-01-22 12:55 | XMS_ITS | Patient Health Record ---
[facility] Organization [facility] Address [address] [place] [address] Care Team Providers Care Preparatory Technician Name Role Phone Sally Villagomez MD Primary Care Provider Eitan De La Paz Unavailable [phone] Allergies No Known Allergies Reason For Referral No Information Medications Medication SIG (Take, Route, Frequency, Duration) Notes Start Date End Date Status Butrans Active Clopidogrel Bisulfate Not-Taking Plavix 25mg Once a day Not-Kevan ing Furosemide Active Losartan Potassium 50 MG Orally Once a day Not-Taking Enbrel 50 MG/ML Subcutaneous once weekly Once a week Active Lomotil Not-Taking eliquis Active Fenofibrate 145MG Once a day N ot-Taking Citalopram Hydrobromide Active Prednisone 1 tab Oral Not-Taki ng zzzCompression Stockings 20-30mm Hg . . . for . Active Vitamin D2 1.25mg Once a weekly Not-Taking traMADol HCl Active Gabapentin 300 MG Orally Twice a day Active Motrin 600Mg PRN Not-Kevan ing amLODIPine Besylate Active Alendronate Sodium 70 MG Orally Once a day Active Ammonium Lactate 12 % 1 application Externally Twice a day for 30 days Active Immunizations Vaccine Route Administration Date Status Comme nts Influenza Unknown 08/27/2021 Administered Social History Tobacco Use: Social History Observation Description Date Details (start date - stop date) Never Smoker NA - NA Tobacco Use/Smoking Question Answer Notes Are you a: nonsmoker Additional Findings: Tobacco Non-User Current no n-smoker Alcohol Screen Question Answer Notes Did you have a drink containing alcohol in the p ast year? No Points 0 Interpretation Negative Tobacco use other than smoking: Question Answer Notes Are you an other tobacco user? No Problems Problem Type SNOMED Code ICD Code Onset Dates Problem Status W/U Status Risk Notes Problem Atherosclerosis of [place] arteries of the extremities ([id number]) Atherosclerosis of [place] artery of both lower extremities, with unspecified presence of clinical manifestation (I70.203) Active confirmed Vital Signs Blood pressure diastolic 78 mm Hg 11/12/2024 Height 5 ft 3 in in 11/12/2024 Blood pressure systolic 130 mm Hg 11/12/2024 Weight 130 lbs 11/12/2024 BMI 23.03 kg/m2 11/12/2024 Procedures Procedure Date Ordered Date Performed Result Body Sit e 82503-HYSVVAG NAIL, 6 OR MORE 02/05/2024 N/A 11582-DUJS SKIN LESIONS, OVER 4 02/05/2024 N/A 42533-ACKLYVW NAIL, 6 OR MORE 04/17/2024 N/A 82219-PPIU SKIN LESIONS, OVER 4 04/17/2024 N/A 69165-XLMWNZS NAIL, 6 OR MORE 08/13/2024 N/A 58684-FWEH SKIN LESIONS, OVER 4 08/13/2024 N/A 52788-BLPXDJK NAIL, 6 OR MORE 11/12/2024 N/A 95800-EIAW SKIN LESIONS, OVER 4 11/12/2024 N/A Encounters Encounter Location Date Provider Diagnosis [address] [address] 02/05/2024 Eitan Nolasco Atherosclerosis of n ative artery of both lower extremities, with unspecified presence of clinical manifestation I70.203 ; Tinea unguium B35.1 ; Pain in right toe(s) M79.674 ; Pain in left toe(s) M79.675 and Xerosis of skin L85.[address] [address] 04/17/2024 Eitan Nolasco Atherosclerosis of n ative artery of both lower extremities, with unspecified presence of clinical manifestation I70.203 ; Tinea unguium B35.1 ; Pain in right toe(s) M79.674 and Pain in left toe(s) M79.675 [facility] [address] [place] [address] 08/13/2024 Eitan Nolasco Atherosclerosis of n ative artery of both lower extremities, with unspecified presence of clinical manifestation I70.203 ; Tinea unguium B35.1 ; Pain in right toe(s) M79.674 ; Pain in left toe(s) M79.675 ; Other hammer toe(s) (acquired), left foot M20.42 ; Arthritis of joint of lesser toe, 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 and Subluxation of metatarsophalangeal joint of toe, initial encounter S93.149A [facility] [place] [address] [place] [address] 11/12/2024 Eitan Nolasco Atherosclerosis of n ative artery of both lower extremities, with unspecified presence of clinical manifestation I70.203 ; Tinea unguium B35.1 ; Pain in right toe(s) M79.674 and Pain in left toe(s) M79.[address] [facility] [address] 06/26/2024 [facility] [address] 06/26/2024 Eitan Nolasco Assessments Encounter Date Diagnosis (ICD Code) Assessment Notes Treatment Notes Treatment Clinical Notes Section Notes 02/05/2024 Tinea unguium (ICD-1 0 - B35.1) 02/05/2024 Atherosclerosis of [place] artery of both lower extremities, with unspecified presence of clinical manifestation (ICD-10 - I70.203) 04/17/2024 Tinea unguium (ICD-1 0 - B35.1) 04/17/2024 Atherosclerosis of [place] artery of both lower extremities, with unspecified presence of clinical manifestation (ICD-10 - I70.203) 08/13/2024 Tinea unguium (ICD-1 0 - B35.1) 08/13/2024 Atherosclerosis of [place] artery of both lower extremities, with unspecified presence of clinical manifestation (ICD-10 - I70.203) 11/12/2024 Tinea unguium (ICD-1 0 - B35.1) 11/12/2024 Atherosclerosis of [place] artery of both lower extremities, with unspecified presence of clinical manifestation (ICD-10 - I70.203) 11/12/2024 Pain in right toe(s) (ICD-10 - M79.674) 08/13/2024 Pain in right toe(s) (ICD-10 - M79.674) 04/17/2024 Pain in right toe(s) (ICD-10 - M79.674) 02/05/2024 Pain in right toe(s) (ICD-10 - M79.674) 02/05/2024 Pain in left toe(s) (ICD-10 - M79.675) 04/17/2024 Pain in left toe(s) (ICD-10 - M79.675) 08/13/2024 Pain in left toe(s) (ICD-10 - M79.675) 11/12/2024 Pain in left toe(s) (ICD-10 - M79.675) 08/13/2024 Other hammer toe(s) (acquired), left foot (ICD-10 - M20.42) 02/05/2024 Xerosis of skin (ICD -10 - L85.3) 08/13/2024 Arthritis of joint o f lesser toe, left (ICD-10 - M19.072) 08/13/2024 Subluxation of metatarsophalangeal joint of toe, initial encounter (ICD-10 - S93.149A) Plan Of Treatment Pending Test Test Name Order Date X ray : Foot, right 3V 06/17/2020 23571-UALRJMB NAIL, 6 OR MORE 10/15/2020 90186-NWPFDAN NAIL, 6 OR MORE 06/17/2020 57560-PXOSPJU NAIL, 6 OR MORE 12/24/2020 01942-TPIPAAX NAIL, 6 OR MORE 12/26/2019 07393-MLCGEVD NAIL, 6 OR MORE 03/30/2020 90145-QJPWXUN NAIL, 6 OR MORE 11/23/2017 16908-CZKXPPQ NAIL, 6 OR MORE 02/22/2018 62287-SPFUTSR NAIL, 6 OR MORE 05/07/2018 46614-NFEIPSQ NAIL, 6 OR MORE 08/23/2018 46924-LODSKEG NAIL, 6 OR MORE 01/14/2019 43168-UAIYQEM NAIL, 6 OR MORE 03/27/2019 41501-BUDPYBZ NAIL, 6 OR MORE 06/05/2019 01162-GDZXPFR NAIL, 6 OR MORE 10/03/2019 95928-YGEXYUE NAIL, 6 OR MORE 03/11/2021 79856-BVWVRMW NAIL, 6 OR MORE 05/20/2021 73677-KCZHWZZ NAIL, 6 OR MORE 08/04/2021 19871-TKGVTZH NAIL, 6 OR MORE 02/15/2022 53809-KOYCZPS NAIL, 6 OR MORE 04/27/2022 94106-SPYPPIY NAIL, 6 OR MORE 07/11/2022 28891-TQWAUFL NAIL, 6 OR MORE 09/19/2022 53681-JTVVACD NAIL, 6 OR MORE 12/29/2022 59014-KPAPHMO NAIL, 6 OR MORE 03/16/2023 87272-QLNDZRP NAIL, 6 OR MORE 06/05/2023 16241-TYDIJND NAIL, 6 OR MORE 09/21/2023 79649-MAUXSBC NAIL, 6 OR MORE 11/30/2023 41128-PLKJRMN NAIL, 6 OR MORE 02/05/2024 24790-NKKNWFZ NAIL, 6 OR MORE 04/17/2024 27696-SBUQLFQ NAIL, 6 OR MORE 08/13/2024 87506-PEUNVWD NAIL, 6 OR MORE 11/12/2024 37108-Xysd Destruction, -14 09/21/2023 30224-Kiex Destruction, -14 06/05/2023 28112-Iaxg Destruction, -14 03/16/2023 51397-Rppn Destruction, -14 12/29/2022 01368-Mogi Destruction, -14 09/19/2022 96636-Cpgr Destruction, -14 07/11/2022 47631-Wipj Destruction, -14 04/27/2022 98674-Gymh Destruction, -14 02/15/2022 72723-Ehiw Destruction, -14 08/04/2021 95897-Isnb Destruction, -05/20/2021 20037-Hdwo Destruction, -14 12/24/2020 80736-Jiab Destruction, -14 03/11/2021 31805-Jnfy Destruction, -06/05/2019 73922-Zpdy Destruction, -03/27/2019 32277-Ynub Destruction, 11-2601/14/2019 85693-Wtbr Destruction, 11-2605/07/2018 27795-Kehj Destruction, 11-2602/22/2018 85181-Qwpy Destruction, 11-2612/26/2019 72697-Admt Destruction, 11-2603/30/2020 40244-Pokd Destruction, 11-2608/23/2018 40224-Kpov Destruction, 11-2610/03/2019 72100-Tadp Destruction, 11-2606/17/2020 05176-Hvza Destruction, 11-2610/15/2020 41161-Oudcexqu Plate 12/24/2020 35982-Bdwtipbe Plate 06/17/2020 23958-Cadhmssi Plate 10/15/2020 40422-Qixigiiz Plate 12/26/2019 72833-Bbhqtgyi Plate 03/30/2020 24320-Jetrjmnu Plate 09/17/2011 51623-Sxocssjl Plate 11/23/2017 28616-Imeemyll Plate 08/23/2018 87101-Etlnnyjw Plate 10/03/2019 28446-Gzechkwv Plate 03/11/2021 46635-Tffuhkbk Plate 04/27/2022 96864-Klnqnjze Plate 07/11/2022 01667-Xovxycbp Plate 03/16/2023 89005-FZIP SKIN LESIONS, OVER 4 08/13/20 24 97063-DNNT SKIN LESIONS, OVER 4 04/17/20 24 57200-JQSA SKIN LESIONS, OVER 4 02/05/20 24 23546-LARN SKIN LESIONS, OVER 4 11/30/19 24 54250-KQFE SKIN LESIONS, OVER 4 11/12/20 24 Next Appt Details Provider Name:Eitan Dickens Constance , 02/17/2025 11:00:00 AM, [address], [address], [place], [address], Insurance Providers Payer Name Payer Address Payer Phone Subscriber Number Group Number Insured Name Patient Relationship to Insured Coverage Start Date Coverage End Date Medicare [employer] [facility] [address] [place] [address] [id number] Kandis Higgins Self - patient is the insured [facility] [address] [place] [address] [id number] Kandis Higgins Self - patient is the insured Medical (General) History Medical History History ICD Code back, hip, knee pain chicken pox fibromyalgia kidney failure measles mumps osteoporosis polio reflux Rheumatoid Arthritis Stroke Surgical History Surgery Date(Month/Year) ovarian surgery 1979 5 surgeries for abdominal adhesions gall bladder 1995 hysterectomy 1979 [place] History Reason [place] [facility] [place] [facility] [place]20 [facility] 12/[place] [facility] [place]
--- OUTSIDE RECORDS SUMMARY | 2025-01-22 12:55 | XMS_ITS ---
Author Organization [facility] Address [address] [facility] [address] [place] [address] Care Team Providers Care Television Repairer Name Role Phone Sally Villagomez MD Primary Care Provider Unavaila Eitan Loyd Unavailable [phone] Allergies No Known Allergies REASON FOR VISIT At Risk Footcare, Painful Nail(s) aggrevated by shoes and causing difficulty standing/walking. Medications Medication SIG (Take, Route, Frequency, Duration) Notes Start Date End Date Status Losartan Potassium 50 MG Orally Once a day Not-Taking Lomotil Not-Taking Fenofibrate 145MG Once a day N ot-Taking Prednisone 1 tab Oral Not-Taki ng Motrin 600Mg PRN Not-Kevan ing Ammonium Lactate 12 % 1 application Externally Twice a day for 30 days Active Clopidogrel Bisulfate Not-Taking Plavix 25mg Once a day Not-Kevan ing zzzCompression Stockings 20-30mm Hg . . . for . Active Vitamin D2 1.25mg Once a weekly Not-Taking Furosemide Active Enbrel 50 MG/ML Subcutaneous once weekly Once a week Active eliquis Active traMADol HCl Active Gabapentin 300 MG Orally Twice a day Active amLODIPine Besylate Active Alendronate Sodium 70 MG Orally Once a day Active Butrans Active Citalopram Hydrobromide Active Social History Tobacco Use: Social History Observation Description Date Details (start date - stop date) Never Smoker NA - NA Tobacco Use/Smoking Question Answer Notes Are you a: nonsmoker Additional Findings: Tobacco Non-User Current no n-smoker Tobacco use other than smoking: Question Answer Notes Are you an other tobacco user? No Vital Signs Height 5 ft 3 in in 11/12/2024 Weight 130 lbs 11/12/2024 BMI 23.03 kg/m2 11/12/2024 Blood pressure systolic 130 mm Hg 11/12/20 Blood pressure diastolic 78 mm Hg 024 Procedures Procedure Date Ordered Date Performed Result Body Sit e 48634-[id number] NAIL, 6 OR MORE 11/12/2024 N/A 74463-MKYJ SKIN LESIONS, OVER 4 11/12/2024 N/A Encounters Encounter Location Date Provider Diagnosis [facility] [address] [address] 11/12/2024 Eitangonzales Longoriaier Atherosclerosis of [place] artery of both lower extremities, with unspecified presence of clinical manifestation I70.203 ; Tinea unguium B35.1 ; Pain in right toe(s) M79.674 and Pain in left toe(s) M79.675 Assessments Encounter Date Diagnosis (ICD Code) Assessment Notes Treatment Notes Treatment Clinical Notes Section Notes 11/12/[address] [place] artery of both lower extremities, with unspecified presence of clinical manifestation (ICD-10 - I70.203) 11/12/2024 Tinea unguium (ICD-10 - B35.1) 11/12/2024 Pain in right toe(s) (ICD-10 - M79.674) 11/12/2024 Pain in left toe(s) (ICD-10 - M79.675) Plan Of Treatment Pending Test Test Name Order Date 92275-[id number] NAIL, 6 OR MORE 11/12/2024 77853-LFCL SKIN LESIONS, OVER 4 11/12/20 24 Next Appt Details Follow Up: prn, Reason: Provider Name:Eitan Nolasco , 02/17/2025 11:00:00 AM, [address] , [address], [place], [address], Procedure Notes * Category Sub-Category Detail Notes Debride Nail 6-10 Nail debridement Due to the cl inical pathology outlined in the exam findings, performance of this nail treatment is medically necessary as its management by an unskilled/untrained nonprofessional would put this patients foot and overall health at risk. Therefore, debridement to affected nail(s), as described in exam ( TA, T1, T2, T3, T4, T6, T8, T9), was performed exclusively by the physician of record to reduce/remove overall nail length, girth, thickness, subungual debris, and necrotic tissue, by manual and/or electrical means through the use of a nail nipper and/or dremel-type grinder outside diameter, to a more viable healthy nail plate or bed tissue 6-10 nails in total. Silver nitrate was used for any petechial bleeding as necessary. Definitive antifungal treatment options, both pharmaceutical and surgical, have been reviewed and discussed with the patient. The patient solely prefers the use of intermittent/as needed professional debridement services for their nail condition and understands the need for additional periodic treatments to maintain effectiveness in symptomatic relief - 73033 Keratoma Treatment Parring or Cutting o f Benign Hyperkeratotic Lesion(s) (-57) More than 4 Lesions - Due to the at risk nature of the patients medical condition as documented in the exam findings, performance of this keratoderma treatment is medically necessary as its management by an unskilled/untrained nonprofessional would put this patients foot and overall health at risk. Therefore, the benign hyperkeratotic lesions, ( 8) in total, locations as stated and described in the exam ( Medial , IPJ , TA , Medial , IPJ , T5 , SUB MTH (s) , 2 , B/L , SUB MTH (s) , 3 , B/L , Plantar, Heel(s) , B/L), were pared, and/or cut utilizing a sterile 15 blade, tissue nippers, and/or power dremel instrumentation by the physician of record - 23138, Q8 Progress Notes * Kandis HIGGINS ADOB: [birth year] (79 yo F)Acc No.[id number]:11/12/2024 Progress Note Patient:?REGANKandis HAWKINS Provider:?Eitan Nolasco DPM :1945???Age:79 Y???Sex:Female D ate:11/12/2024 Address:[address] [place], [place] [address]Sima [id number] Pcp:Sally Villagomez MD Subjective: * Chief Complaints: * ???At Risk FootcarePainful N ail(s) aggrevated by shoes and causing difficulty standing/walking. * HPI: ???At Risk footcare:?Pt States Last PCP Visit:?Date?07/16/2024 * ROS:?General/Constitutional:?Nausea?denies.?Vomiting?denies.?Hunger Thirst?denies.?Loss appetite?denies.?Chills?denies.?Fatigue?admits.?Fever?denies.?Night Sweats?denies.?Unexplained weight loss?denies.?Unexplained weight gain?denies.?HEENTM:?Dentures?denies.?Dizziness?denies.?Glasses/contacts?denies.?Retinopathy?de nies.?Blurred/double vision?denies.?TMJ?denies.?Discharge/drainage?denies.?Implants?denies.?Sore throat?denies.?Dental implants?denies.?Hard of hearing ?denies.?Difficulty chewing/swallowing/speaking?denies.?Nose bleeds?denies.?Sore mouth?denies.?Respiratory:?On Oxygen?denies.?Pneumonia/pleurisy?denies.?Bronchitis?denies.?Emphysema?denies.?C oughing?denies.?Cough blood?denies.?Shortness of breath?denies.?Wheezing?denies.?Cardiovascular:?Pacemaker?denies.?MVP?denies.?WPW?denies.?CHF?denies.?Heart attack?denies.?Septal defect?denies.?Rapid beat?denies.?Chest pain ?denies.?Atrial Fib.?denies.?Murmur/Palpitations?denies.?Gastrointestinal:?Hemorrhoids?denies.?Stomach/Abdominal pain?denies.?Dark blood stool?denies.?Irritable bowel ?denies.?Constipation?denies.?Diarrhea?denies.?Hematology:?Swelling?denies.?Clots?denies.?Varicose Veins?admits.?Bruising?admits.?Bleeding problem?admits.?Genitourinary:?Blood urine?denies.?Frequent/Painfu/urination/bladder control?denies.?Kidney stones?denies.?Infection (UTI)?denies.?Nephropathy?denies.?sex trans dis (STD)?denies.?Prostate?denies.?Musculoskeletal:?Hammertoes?admits.?Bunions?admits.?Back Pain?denies.?Muscle Cramps/ Resting?denies.?Muscle cramps / walking?denies.?Generalized aches and pains?denies.?Weakness?denies.?Integ.:?Velez?denies.?Scars?denies.?Corns/calluses?admits.?Ingrown nails?admits.?Painful nails?admits.?Open Sores?denies.?Rashes?denies.?Neurologic:?Difficulty sleeping?denies.?Brain disorder?denies.?Numbness?denies.?Balance trouble?denies.?Confusion?denies.?Fainting/blackouts?denies.?Tingling?denies.?Tr emors?denies.? * Medical History:? * Surgical History:?ovarian sim rgery surgeries for abdominal adhesions gall bladder 1996hysterectomy 1980 * Hospitalization/Major Diagno stic Procedure:?[facility], IV Fluids 12/2017[facility] [place], stroke 12/05/2019[facility] Xray Right Foot 05/27/20[facility]- pneumonia 08/2023 * Family History:?Mother: dece ased, diagnosed with Other malignant neoplasm of unspecified site.?Father: , diagnosed with Unspecified cerebral artery occlusion with cerebral infarction.?Siblings: heart attack, hypertension.?Spouse: .?1 son(s) . .? * Social History:?Tobacco Use:?Tobacco Use/Smoking?Are you a:?nonsmoker ?Additional Findings: Tobacco Non-User?Current non-smoker ?Tobacco use other than smoking?Are you an other tobacco user??No * Medications:?TakingAlendrona te Sodium 70 MG Tablet Orally Once a day amLODIPine Besylate Butrans Citalopram Hydrobromide eliquis Enbrel 50 MG/ML Solution Prefilled Syringe Subcutaneous once weekly , Notes to Pharmacist: Once a weekFurosemide Gabapentin 300 MG Capsule Orally Twice a day traMADol HCl zzzCompression Stockings 20-30mm Hg 1 pair closed toe- knee high . . . Ammonium Lactate 12 % Cream 1 application Externally Twice a day Taking Alendronate Sodium 70 MG Tablet Orally Once a day Taking amLODIPine Besylate Taking Butrans Taking Citalopram Hydrobromide Taking eliquis Taking Enbrel 50 MG/ML Solution Prefilled Syringe Subcutaneous once weekly , Notes to Pharmacist: Once a weekTaking Furosemide Taking Gabapentin 300 MG Capsule Orally Twice a day Taking traMADol HCl Taking zzzCompression Stockings 20-30mm Hg 1 pair closed toe- knee high . . . Taking Ammonium Lactate 12 % Cream 1 application Externally Twice a day Not-Taking/PRNVitamin D2 1.25mg Once a weekly Plavix 25mg Once a day Clopidogrel Bisulfate Prednisone 1 tab Oral Fenofibrate 145MG Once a day Lomotil Losartan Potassium 50 MG Tablet Orally Once a day Motrin 600Mg PRN Medication List reviewed and reconciled with the patientNot-Taking/PRN Vitamin D2 1.25mg Once a weekly Not-Taking/PRN Plavix 25mg Once a day Not-Taking/PRN Clopidogrel Bisulfate Not-Taking/PRN Prednisone 1 tab Oral Not-Taking/PRN Fenofibrate 145MG Once a day Not-Taking/PRN Lomotil Not-Taking/PRN Losartan Potassium 50 MG Tablet Orally Once a day Not-Taking/PRN Motrin 600Mg PRN Medication List reviewed and reconciled with the patient * Allergies:?N.K.D.A.yes[Aller gies Verified] Objective: * Vitals:?Ht: 5 ft 3 in, Wt: 1 30, BMI: 23.03, Shoe size: 7, BP: 130/78 mm Hg, Wt- k.97 kg. * Examination: ???Vascular: ?DP PULSES (B):?1/4, B/L.?PT PULSES (B):? 0/4, B/L.?CAPILLARY FILL TIME:? delayed, all digits, B/L.?TROPHIC CONDITION-TEXTURE/ELASTICITY/TURGOR/HAIR GROWTH (B):? decreased, with sparse to absent hair growth, B/L.?TEMPERTURE GRADIENT (C):? decreased, cool to cool, proximal to distal, B/L.?PIGMENTATION:?mottled, B/L.?EDEMA (C):?absent, B/L.?CLAUDICATION (C):?denies, B/L.?REST PAIN:?denies, B/L.?Nails: ?NAILS are:?Elongated, overgrown, dystrophic, lytic, greater than 3mm thick, discolored and friable with crumbly malodorous subungual debris, with pain on palpation, TA, T1, T2, T3, T4, T6, T8, T9, all other nails not described with characteristics as possessing mycosis are elongated, overgrown, and dystrophic.?Dermatologic: ?SKIN FINDINGS:?Skin exam reveals Keratotic lesion(s) located at , Medial , IPJ , TA , Medial , IPJ , T5 , SUB MTH (s) , 2 , B/L , SUB MTH (s) , 3 , B/L , Plantar, Heel(s) , B/L.? Assessment: * Assessment: 1.?Tinea unguium - B35.1???2 .?Atherosclerosis of [place] artery of both lower extremities, with unspecified presence of clinical manifestation - I70.203 (Primary)???3.?Pain in right toe(s) - M79.674???4.?Pain in left toe(s) - M79.675??? Plan: * Treatment: 2.?Tinea unguium?Procedure: [id number] NAIL, 6 OR MORE * Procedures:?Debride Nail 6-10:?Nail debridement?Due to the clinical pathology outlined in the exam findings, performance of this nail treatment is medically necessary as its management by an unskilled/untrained nonprofessional would put this patients foot and overall health at risk. Therefore, debridement to affected nail(s), as described in exam (?TA, T1, T2, T3, T4,?T6,?T8,?T9), was performed exclusively by the physician of record to reduce/remove overall nail length, girth, thickness, subungual debris, and necrotic tissue, by manual and/or electrical means through the use of a nail nipper and/or dremel-type grinder outside diameter, to a more viable healthy nail plate or bed tissue 6-10 nails in total. Silver nitrate was used for any petechial bleeding as necessary. Definitive antifungal treatment options, both pharmaceutical and surgical, have been reviewed and discussed with the patient. The patient solely prefers the use of intermittent/as needed professional debridement services for their nail condition and understands the need for additional periodic treatments to maintain effectiveness in symptomatic relief - 15655.?Keratoma Treatment:?Parring or Cutting of Benign Hyperkeratotic Lesion(s)?(-57) More than 4 Lesions - Due to the at risk nature of the patients medical condition as documented in the exam findings, performance of this keratoderma treatment is medically necessary as its management by an unskilled/untrained nonprofessional would put this patients foot and overall health at risk. Therefore, the benign hyperkeratotic lesions, ( 8) in total, locations as stated and described in the exam (?Medial?,?IPJ?,?TA?,?Medial?,?IPJ?,?T5?,?SUB MTH (s)?,?2?,?B/L?,?SUB MTH (s)?,?3?,?B/L?,?Plantar,?Heel(s)?,?B/L), were pared, and/or cut utilizing a sterile 15 blade, tissue nippers, and/or power dremel instrumentation by the physician of record - 03489, Q8.? * Procedure Codes:?70571 DEBRI DE NAIL, 6 OR MORE, Modifiers: XS 55557 TRIM SKIN LESIONS, OVER 4, Modifiers: XS , Q8 * Follow Up:?prn * Images: * Sign off status: Completed true * Provider:?Eitan Nolasco DPM Date:?2023 Generated for David mart/Lyly/eTransmboris on:?01/22/2025 12:55 PM EDT History and Physical Notes * HPI (History of Present Illness) Category Sub-Category Detail Notes Category Not es At Risk footcare Pt States Last PCP Visit: Date: Examination Category Sub-Category Detail Notes Category Not es Dermatologic SKIN FINDINGS: Skin exam reveal s Keratotic lesion(s) located at , Medial , IPJ , TA , Medial , IPJ , T5 , SUB MTH (s) , 2 , B/L , SUB MTH (s) , 3 , B/L , Plantar, Heel(s) , B/L Vascular DP PULSES (B): 1/4, B/L PT PULSES (B): 0/4, B/L CAPILLARY FILL TIME: delayed, all digits , B/L TEMPERTURE GRADIENT (C): decreased, cool to cool, proximal to distal, B/L TROPHIC CONDITION-TEXTURE/ELASTICITY/TURGOR/HAIR GROWTH (B): decreased, with sparse to absent hair gr owth, B/L EDEMA (C): absent, B/L CLAUDICATION (C): denies, B/L REST PAIN: denies, B/L PIGMENTATION: mottled, B/L Nails NAILS are: Elongated, overg rown, dystrophic, lytic, greater than 3mm thick, discolored and friable with crumbly malodorous subungual debris, with pain on palpation, TA, T1, T2, T3, T4, T6, T8, T9, all other nails not described with characteristics as possessing mycosis are elongated, overgrown, and dystrophic
--- OUTSIDE RECORDS SUMMARY | 2025-01-22 12:55 | XMS_ITS | Encounter Summary ---
Author Organization [facility], Address [address] [place] [address] Phone Care Team Providers Care Slumber Room Attendant Name Role Phone Sally Villagomez MD Primary Care Provider [phone] Encounter Details Date Type Department Care Team (Late Contact Info) Description 07/12/2024 Documentation Only [facility] [address] [place] [address] Keenan Eduardo DO [address] [place] [address] Social History Tobacco Use Types Packs/Day Years Used Date Smoking Tobacco: Never Alcohol Use Standard Drinks/Week Comments Yes 0 (1 standard drink = 0.6 oz pure alcohol) Alcoholic Drinks/day: Occasional social drink Comments Unknown Sex and Gender Information Value Date Recorded Sex Assigned at Not on file Legal Sex Female 8:18 AM EST Gender Identity Not on file Sexual Orientation Not on file documented as of this encounter Plan of Treatment Upcoming Encounters Date Type Department Care Team (Late st Contact Info) Description 07/16/2025 1:45 PM EDT Office Visit [facility] [address] [place] [place] [address] Keenan Eduardo DO [address] [place] [address] documented as of this encounter Visit Diagnoses Not on filedocumented in this encounter Care Teams Slumber Room Attendant Relationship Specialty Start Date End Date Sally Villagomez MD [address] [place] [address] PCP - General Internal Medicine 12/10/19 documented as of this encounter
--- OUTSIDE RECORDS SUMMARY | 2025-01-22 12:55 | XMS_ITS | Encounter Summary ---
Author Organization [facility] Address [address] [place] [address] Care Team Providers Care Boat Patcher Plastic Name Role Phone Sally Villagomez MD Primary Care Provider [phone] Reason for Visit * Reason Comments Medication Refill Encounter Details Date Type Department Care Team ([facility] st Contact Info) Description 03/26/2021 Refill [facility] [address] [address] [place] [address] Elton Henning MD [address] [facility] [address] [place] [address] Functional diarrhea Social History Tobacco Use Types [...] encounter Miscellaneous Notes * Telephone Encounter - Etlon Henning MD - 03/26/2021 4:10 PM EDT Denied * Telephone Encounter - Dianne Dan MA - 03/26/2021 3:51 PM EDT PLease deny Dr. Dickens. She moved out of [place] and is seeing a new GI doctor, thanks. * Telephone Encounter - Dianne Dan MA - 03/26/2021 1:34 PM EDT [place] 09/26/19 No known allergies documented in this encounter Plan of Treatment Not on file documented as of this encounter Visit Diagnoses Diagnosis Functional diarrhea documented in this encounter Care Teams Boat Patcher Plastic Relationship Specialty Start Date End Date Sally Villagomez MD [address] [place] [address] PCP - General 07/09/19 documented as of this encounter
--- OUTSIDE RECORDS SUMMARY | 2025-01-22 12:55 | XMS_ITS | Encounter Summary ---
Author Organization [facility], Address [address] [place] [address] Phone Care Team Providers Care Floriculture Professor Name Role Phone Sally Villagomez MD Primary Care Provider [phone] Encounter Details Date Type Department Care Team (Late Contact Info) Description 07/11/2024 Documentation Only [facility] [address] [place] [address] Keenan Eduardo DO [address] [facility] [address] [place] [address] Social History Tobacco Use Types [...] Visit [facility] [address] [place] [address] Keenan Eduardo DO [address] [facility] [address] [place] [address] documented as of this encounter Visit Diagnoses Not on filedocumented in this encounter Care Teams Floriculture Professor Relationship Specialty Start Date End Date Sally Villagomez MD [address] [place] [address] PCP - General Internal Medicine 12/10/19 documented as of this encounter
--- OUTSIDE RECORDS SUMMARY | 2025-01-22 12:55 | XMS_ITS | Clinical Summary ---
Author Organization [facility], Address [address] [facility] [place] [address] Care Team Providers Care Manager Fraud Name Role Phone Sally Villagomez MD Primary Care Provider [phone] Allergies No known active allergies Medications amLODIPine (NORVASC) 10 MG tablet Take 10 mg by mouth 1 (one) time each day Active atorvastatin (LIPITOR) 80 MG tablet Take 80 mg by mouth 1 (one) time each day Active bisoprolol (ZEBETA) 5 MG tablet Take 5 mg by mouth 1 (one) time each day Active Buprenorphine 10 MCG/HR patch weekly Place 1 patch on the skin 1 (one) time each day Active citalopram (CeleXA) 20 MG tablet Take 20 mg by mouth 1 (one) time each day Active clopidogrel (PLAVIX) 75 MG tablet Take 75 mg by mouth 1 (one) time each day Active etanercept (ENBREL) 50 MG/ML injection Inject 50 mg under the skin per week Active gabapentin (NEURONTIN) 300 MG capsule Take 300 mg by mouth 3 (three) times a day Active zolpidem (AMBIEN) 5 MG tablet Take 5 mg by mouth at night if needed Active diphenoxylate-a tropine (LOMOTIL) 2.5-0.025 MG per tablet Take 1 tablet by mouth 02/20/2020 Active traMADol (ULTRAM) 50 MG tablet Take 50 mg by mouth every 12 (twelve) hours 06/19/2023 Active omeprazole (PriLOSEC) [address] capsule TAKE 1 CAPSULE ( 40MG ) BY MOUTH DAILY. 06/01/2023 Active apixaban (Eliquis) 5 MG tablet Take 5 mg by mouth in the morning and 5 mg in the evening. Active lisinopril 10 MG tablet TAKE 1 TABLET BY MOUTH 1 TIME EACH DAY. 90 tablet 3 12/09/2024 Active Active Problems Problem Noted Date Diagnosed Date Urgency of urination 10/21/2020 Acute tubulointerstitial nephritis 01/14/2020 Stroke 01/14/2020 Stage 3a chronic kidney disease 12/05/2019 Overview (11/16/2020): Update for Diagnosis Load Acute nontraumatic kidney injury Hypertension Hyperlipidemia Encounters Date Type Department Care Team Description 12/07/2024 Refill [facility] [place] [facility] [place] [address] [facility] [place] [address] Keenan Eduardo DO from Last 3 Months Immunizations Name Administration Dates Next Due Influenza Split High Dose Preservative Free IM 0 08/01/2020,08/14/2018 Influenza, Unspecified 09/01/2011 Pfizer SARS-COV-2 01/17/2021,12/27/2020 Pneumococcal Polysaccharide 11/13/1998 Td, Unspecified 07/04/2011 Zoster 07/13/2019,03/29/2019 Family History Medical History Relation Comments Hypertension Father Heart disease Sibling 1 Hypertension Sibling 2 sister Hypertension Sister Relation Status Comments Father Sibling 1 Sibling 2 Sister Social History Tobacco Use Types Packs/Day Years [...] Sign Reading Time Taken Comments Blood Pressure 136/82 07/10/2024 2:04 PM EDT Pulse 72 07/10/2024 2:04 PM EDT Temperature - - Respiratory Rate - - Oxygen Saturation - - Inhaled Oxygen Concentration - - Weight - - Height - - Body Mass Index - - Plan of Treatment Upcoming Encounters Date Type Department Care Team (Late st Contact Info) Description 07/16/2025 1:45 PM EDT Office Visit [facility] [place], [address] [address] Keenan Eduardo DO [address] [place] [address] Health Maintenance Due Date Last Done Comments Pneumococcal Vaccine: 65+ Years (2 of 2 - PCV) 11/13/1999 11/13/1998 Influenza Vaccine (#1) 2024 0, 08/14/2018, 09/01/2011 Hepatitis B Vaccine Aged Out No longe r eligible based on patient's age to complete [place] [address] [facility] [facility] [place] [address] [place] [address] Care Teams Manager Fraud Relationship Specialty Start Date End Date Sally Villagomez MD [address] [place] [address] PCP - General Internal Medicine 12/10/19
--- OUTSIDE RECORDS SUMMARY | 2025-01-22 12:55 | XMS_ITS | Encounter Summary ---
Author Organization [facility], Address [address] [place] [address] Phone Care Team Providers Care Bone Glue Maker Name Role Phone Sally Villagomez MD Primary Care Provider [phone] Encounter Details Date Type Department Care Team (Late Contact Info) Description 07/03/2023 Documentation Only [facility] [address] [place] [address] Keenan Eduardo DO [address] [place] [address] Social History Tobacco Use Types [...] Visit [facility] [address] [place] [address] Keenan Eduardo DO [address] [place] [address] documented as of this encounter Visit Diagnoses Not on filedocumented in this encounter Care Teams Bone Glue Maker Relationship Specialty Start Date End Date Sally Villagomez MD [address] [place] [address] PCP - General Internal Medicine 12/10/19 documented as of this encounter
--- OUTSIDE RECORDS SUMMARY | 2025-01-22 12:56 | XMS_ITS ---
[facility] Address [address] [facility] [place] [address] Care Team Providers Care Student Life Coordinator Name Role Phone Sally Villagomez MD Primary Care Provider Unavaila Eitan Loyd Unavailable [phone] Allergies No Known Allergies REASON FOR VISIT At Risk Footcare, Painful Nail(s) aggrevated by shoes and causing difficulty standing/walking., Painful Toe(s) Medications Medication SIG (Take, Route, Frequency, Duration) Notes Start Date End Date Status Motrin 600Mg PRN Not-Kevan ing Losartan Potassium 50 MG Orally Once a day Not-Taking Prednisone 1 tab Oral Not-Taki ng Lomotil Not-Taking Fenofibrate 145MG Once a day N ot-Taking Vitamin D2 1.25mg Once a weekly Active Ammonium Lactate 12 % 1 application Externally Twice a day for 30 days Active zzzCompression Stockings 20-30mm Hg . . . for . Active Clopidogrel Bisulfate Not-Taking Plavix 25mg Once a day Not-Kevan ing Gabapentin 300 MG Orally Twice a day Active Furosemide Active traMADol HCl Active eliquis Active Enbrel 50 MG/ML Subcutaneous once weekly Once a week Active Alendronate Sodium 70 MG Orally Once a day Active Butrans Active amLODIPine Besylate Active Citalopram Hydrobromide Active Social History Tobacco Use: Social History Observation Description Date Details (start date - stop date) Never Smoker NA - NA Tobacco Use/Smoking Question Answer Notes Are you a: nonsmoker Additional Findings: Tobacco Non-User Current no n-smoker Tobacco use other than smoking: Question Answer Notes Are you an other tobacco user? No Vital Signs Height 5 ft 3 in in 08/13/2024 Weight 128 lbs 08/13/2024 BMI 22.67 kg/m2 08/13/2024 Procedures Procedure Date Ordered Date Performed Result Body Sit e 29306-CUNNGIA NAIL, 6 OR MORE 08/13/2024 N/A 54433-MYKP SKIN LESIONS, OVER 4 08/13/2024 N/A Encounters Encounter Location Date Provider Diagnosis [facility] [address] [place] [address] 08/13/2024 Eitan Nolasco Atherosclerosis of n ative artery of both lower extremities, with unspecified presence of clinical manifestation I70.203 ; Tinea unguium B35.1 ; Pain in right toe(s) M79.674 ; Pain in left toe(s) M79.675 ; Other hammer toe(s) (acquired), left foot M20.42 ; Arthritis of joint of lesser toe, 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 and Subluxation of metatarsophalangeal joint of toe, initial encounter S93.149A Assessments Encounter Date Diagnosis (ICD Code) Assessment Notes Treatment Notes Treatment Clinical Notes Section Notes 08/13/2024 Atherosclerosis of modoc artery of both lower extremities, with unspecified presence of clinical manifestation (ICD-10 - I70.203) 08/13/2024 Tinea unguium (ICD-1 0 - B35.1) 08/13/2024 Pain in right toe(s) (ICD-10 - M79.674) 08/13/2024 Pain in left toe(s) (ICD-10 - M79.675) 08/13/2024 Other hammer toe(s) (acquired), left foot (ICD-10 - M20.42) 08/13/2024 Arthritis of joint o f lesser toe, left (ICD-10 - M19.072) 08/13/2024 Subluxation of metatarsophalangeal joint of toe, initial encounter (ICD-10 - S93.149A) Plan Of Treatment Pending Test Test Name Order Date 27327-AXRNRMF NAIL, 6 OR MORE 08/13/2024 47616-OGVG SKIN LESIONS, OVER 4 08/13/20 24 Next Appt Details Follow Up: prn, Reason: Provider Name:Eitan Nolasco , 02/17/2025 11:00:00 AM, [address] [facility], [address], [place], [address], Procedure Notes * Category Sub-Category Detail Notes Debride Nail 6-10 Nail debridement Performance o f this nail treatment by a nonprofessional would put this patients foot and overall health at risk. Therefore, nail debridement was performed extensively to reduce/remove overall nail length, girth, thickness, subungual debris, and necrotic tissue, by manual and/or electrical means through the use of a nail nipper and/or dremel-type watch crystal edge grinder, to a more viable healthy nail plate or bed tissue 6-10. Silver nitrate used for any petechial bleeding as necessary. Definitive antifungal treatment options have been reviewed and discussed with the patient. The patient chooses, no pharmaceutical tx - 84458 Keratoma Treatment Parring or Cutting o f Benign Hyperkeratotic Lesion(s) (-57) More than 4 Lesions - The Benign hyperkeratotic lesions, as described above were pared, and/or cut utilizing a sterile 15 blade, tissue nippers, and/or dremel - 88240 , Q8 Progress Notes * Kandis HIGGINS ADOB: [birth year] (79 yo F)Acc No.[id number]:08/13/2024 Progress Note Patient:?Ifrah HIGGINSot Ev Provider:?Eitan Nolasco DPM :1945???Age:79 Y???Sex:Female D ate:08/13/2024 Address:[address] [place], [place] [id number] Pcp:Sally Villagomez MD Subjective: * Chief Complaints: * ???At Risk FootcarePainful N ail(s) aggrevated by shoes and causing difficulty standing/walking.Painful Toe(s) * HPI: ???At Risk footcare:?Pt States Last PCP Visit:?Date?07/16/2024 ???Toe pain:?Nature:?tenderness.?Location:?Left foot , 2nd toe.?Duration:?several days.?Onset/Cause:?shoe gear?.?Course:?worse.?Aggravated by:?any pressure, shoes.?Treatments:?rest/alter normal daily activity, change in shoes.? * ROS:?General/Constitutional:?Nausea?denies.?Vomiting?denies.?Hunger Thirst?denies.?Loss appetite?denies.?Chills?denies.?Fatigue?admits.?Fever?denies.?Night Sweats?denies.?Unexplained weight loss?denies.?Unexplained [...] surgeries for abdominal adhesions gall bladder 1996hysterectomy 1979 * Hospitalization/Major Diagno stic Procedure:?[facility], IV Fluids 12/2017[facility], stroke 12/05/2019[facility] Xray Right Foot 05/27/20[facility]- pneumonia 08/2023 * Family History:?Mother: dece ased, diagnosed with Other malignant neoplasm of unspecified site.?Father: , diagnosed with Unspecified cerebral artery occlusion with cerebral infarction.?Siblings: heart attack, hypertension.?Spouse: .?1 son(s) . .? * Social History:?Tobacco Use:?Tobacco Use/Smoking?Are you a:?nonsmoker ?Additional Findings: Tobacco Non-User?Current non-smoker ?Tobacco use other than smoking?Are you an other tobacco user??No ???Miscellaneous:?Caffeine: yes, frequency:, 3-5 cups per day coffee. ?Children: yes, 1. ?Exercise: yes, walking dog, housework. ?Marital status: . 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 * Medications:?TakingAlendrona te Sodium 70 MG Tablet Orally Once a day amLODIPine Besylate Butrans Citalopram Hydrobromide eliquis Enbrel 50 MG/ML Solution Prefilled Syringe Subcutaneous once weekly , Notes to Pharmacist: Once a weekFurosemide Gabapentin 300 MG Capsule Orally Twice a day traMADol HCl Vitamin D2 1.25mg Once a weekly zzzCompression Stockings 20-30mm Hg 1 pair closed [...] Twice a day Taking traMADol HCl Taking Vitamin D2 1.25mg Once a weekly Taking zzzCompression Stockings 20-30mm Hg 1 pair closed toe- knee high . . . Taking Ammonium Lactate 12 % Cream 1 application Externally Twice a day Not-Taking/PRNPlavix 25mg Once a day Clopidogrel Bisulfate Prednisone 1 tab Oral Fenofibrate 145MG Once a day Lomotil Losartan Potassium 50 MG Tablet Orally Once a day Motrin 600Mg PRN Medication List reviewed and reconciled with the patientNot-Taking/PRN Plavix 25mg Once a day Not-Taking/PRN Clopidogrel Bisulfate Not-Taking/PRN Prednisone 1 tab Oral Not-Taking/PRN Fenofibrate 145MG Once a day Not-Taking/PRN Lomotil Not-Taking/PRN Losartan Potassium 50 MG Tablet Orally Once a day Not-Taking/PRN Motrin 600Mg PRN Medication List reviewed and reconciled with the patient * Allergies:?N.K.D.A.yes[Aller gies Verified] Objective: * Vitals:?Ht: 5 ft 3 in, Wt: 1 28, BMI: 22.67, Shoe size: 7, Wt-k.06 kg. * Examination: ???Vascular: ?DP PULSES (B):?1/4, [...] crumbly malodorous subungual debris, with pain on palpation , 1-5 Left foot, T6, T8, T9.?Dermatologic: ?SKIN FINDINGS:?Skin exam reveals Keratotic lesion(s) located at , Medial , IPJ , TA , Medial , IPJ , T5 , SUB MTH (s) , 2 , B/L , SUB MTH (s) , 3 , B/L , Heel(s) , B/L.?Orthopedic: ?DIGITAL DEFORMITIES:?Digital contracture, PIPJ, 2-5 B/L, incompl-reducible with WB, or to push-up test , medial over lapping - T1 , MPJ Contracture/Dorsal subluxation , incompl-reducible with WB or to push-up test, T1 , Reveals pain/swelling/redness/enlargement of DIPJ, T1.?FOOTWEAR:? shoe gear properties exacerbate patients foot/toe deformity.? Assessment: * Assessment: 1.?Tinea unguium - B35.1???2 .?Atherosclerosis of modoc artery of both lower extremities, with unspecified presence of clinical manifestation - I70.203???3.?Pain in right toe(s) - M79.674???4.?Pain in left toe(s) - M79.675?? 5.?Other hammer toe(s) (acquired), left foot - M20.42???Specify :Acute problem, Uncomplicated (3)???6.?Arthritis of joint of lesser toe, left - M19.072???7.?Subluxation of metatarsophalangeal joint of toe, initial encounter - S93.149A??? Plan: * Treatment: 2.?Atherosclerosis of modoc artery of both lower extremities, with unspecified presence of clinical manifestation?Procedure: 21769-KDMQ SKIN LESIONS, OVER 4 * Procedures:?Debride Nail 6-10:?Nail debridement?Performance of this nail treatment by a nonprofessional would put this patients foot and overall health at risk. Therefore, nail debridement was performed extensively to reduce/remove overall nail length, girth, thickness, subungual debris, and necrotic tissue, by manual and/or electrical means through the use of a nail nipper and/or dremel-type watch crystal edge grinder, to a more viable healthy nail plate or bed tissue 6-10. Silver nitrate used for any petechial bleeding as necessary. Definitive antifungal treatment options have been reviewed and discussed with the patient. The patient chooses, no pharmaceutical tx - 26023.?Keratoma Treatment:?Parring or Cutting of Benign Hyperkeratotic Lesion(s)?(-57) More than 4 Lesions - The Benign hyperkeratotic lesions, as described above were pared, and/or cut utilizing a sterile 15 blade, tissue nippers, and/or dremel - 29719 , Q8.? * Procedure Codes:?40908 DEBRI DE NAIL, 6 OR MORE, Modifiers: XS 65022 TRIM SKIN LESIONS, OVER 4, Modifiers: XS , Q8 * Preventive Medicine:? ??Counseling:?Discussion:?-13: Office or other outpatient visit for the evaluation and management of an established patient, which required a medically appropriate history and/or examination and LOW level of DECISION MAKING for: 1 STABLE ACUTE UNCOMPLICATED PROBLEM, 2 OR MORE MINOR PROBLEMS, OR 1 STABLE CHRONIC PROBLEM, THAT POSE(S) A LOW RISK FOR MORBIDITY/MORTALITY. The visit on the day of the encounter encompassed interpreting the data and educating the patient as to the nature of their condition, treatment options available according to their individual PMH, meds, allergies, and overall health/living conditions, as well as any potential risks or complications that may occur from a failure to adhere to, and participate in, the recommended course of therapy. The discussion included a complete verbal, and/or written explanation of the examination results, any x-rays taken, the proposed diagnosis, and outline of the treatment plan. A schedule for future care needs was also explained. The patient verbalized an understanding of the instructions at this time and agreed to be an active participant in their treatment. If the patient should think of any questions or concerns after the visit, I have encouraged the patient to call the office.?Digital Surgery:?Digital surgery was discussed with the patient, including the risks of surgery(below), vs not having surgery (persistent pain, deformity, risk for skin ulceration/infection, loss of toe), the potential surg complications, the anesthesia, and the usual post-op course. No guarentees were given. We discussed the potential procedure complications including, but not limited to: pain, swelling, bleeding, scarring, numbness, infection, delayed/non healing, floppy/unstable/shorthened toe, recurrence, failure of the procedure, overcorrection leading to plantarflexed/downward positioned toe, recurrence, need for further surgery, as well as the possibility for loss of the toe itself. We discussed the use of local anesthesia, and the usual post-op course for healing. No guarentees were given. The patient verbally indicated a full understanding of the above conversation, and any other of their questions were answered to their satisfaction. Alternatives to the procedure were also discussed, including conservative care. I also discussed the usual post-operative course and gave no guarantees regarding outcome, We elected to try conservative treatment at the present time, due to the patients age, medical history, and circulatory constraints.?Digital Treatment:?I explained to the patient the possible etiologies of Hammertoes, including genetics/foot type/shoegear/activity level/exercise routine and the risks/benefits of all the different treatment options for their pain including: No treatment at all, Rest, Ice, New/supportive/wider/deeper Shoegear, Digital Padding/Strapping/Taping/Bracing/Gel protective sleeves, Foot/Ankle AFO Bracing, Stretching exercises, Deep Tissue Massage, Arch support/shoe inserts with splay metatarsal padding, and Custom orthoses. I insisted that any digital devices be removed daily and not worn overnight for safety. The patient is to carefully examine the toes daily for any skin irritation while using any splinting or padding device. The advantages and disadvantages of each option were discussed and the patients questions re: shoegear, padding, custom vs prefabricated inserts, activity level, and consistency in home treatment regimens for optimal success were answered to their verbally confirmed satisfaction.?Shoe Gear Counseling:?The patient and I reviewed the types of shoes they should be wearing. My recommendation included obtaining a well-fitted shoe with a good supportive, non-foldable nor twistable sole, plenty of toe/room for the forefoot, and proper arch support. Based on todays examination, I recommended the patient look for new shoes, by having their feet professionally measured. We discussed that generally the best time of the day for a shoe fitting is the afternoon. Different shoes types and brands to best match the patients occupation and vocation were discussed. Specific brand selection will be up to the patient, their individual foot condition/deformities, and fit. The patient and I reviewed the standard new shoe break in period by wearing them for a few hours a day while checking for redness or sores as wear time is increased. The patient verbally confirmed to understanding the information discussed.? ??Screening/Special Tests:?Fall Risk?Screening:?No falls in the past year ?FALLS: Screening for Future Fall Risk?Have you had any falls with injury in the past year??No * Follow Up:?prn * Images: * Sign off status: Completed true * Provider:?Eitan Nolasco DPM Date:?2023 Generated for David mart/[place] on:?01/22/2025 12:55 PM EDT History and Physical Notes * HPI (History of Present Illness) Category Sub-Category Detail Notes Category Not es Toe pain Nature: tenderness Location: Left foot , 2nd toe Duration: several days Onset/Cause: shoe gear? Course: worse Aggravated by: any pressure, shoes Treatments: rest/alter normal da kranthi activity, change in shoes At Risk footcare Pt States Last PCP Visit: Date: 4 Examination Category Sub-Category Detail Notes Category Not es Dermatologic SKIN FINDINGS: Skin exam reveal s Keratotic lesion(s) located at , Medial , IPJ , TA , Medial , IPJ , T5 , SUB MTH (s) , 2 , B/L , SUB MTH (s) , 3 , B/L , Heel(s) , B/L Orthopedic FOOTWEAR: shoe gear proper ties exacerbate patients foot/toe deformity DIGITAL DEFORMITIES: Digital contracture , PIPJ, 2-5 B/L, incompl-reducible with WB, or to push-up test , medial over lapping - T1 , MPJ Contracture/Dorsal subluxation , incompl-reducible with WB or to push-up test, T1 , Reveals pain/swelling/redness/enlargement of DIPJ, T1 Vascular DP PULSES (B): 1/4, B/L PT [...] crumbly malodorous subungual debris, with pain on palpation , 1-5 Left foot, T6, T8, T9
== END 2025-01-22 11:52 | disposition home or self-care (01) ==
LOC: HO.HMCC 11:01
PROVIDERS: PCP Internal Medicine; Visit Provider Internal Medicine
DX: I12.9 Hypertensive chronic kidney disease with stage 1 through stage 4 chronic kidney disease, or unspecified chronic kidney disease (principal); N18.30 Chronic kidney disease, stage 3 unspecified; I48.0 Paroxysmal atrial fibrillation; J44.9 Chronic obstructive pulmonary disease, unspecified; E55.9 Vitamin D deficiency, unspecified; E78.5 Hyperlipidemia, unspecified; G47.33 Obstructive sleep apnea (adult) (pediatric)

== ENCOUNTER → 2025-01-22 11:00 | Outpatient (BNVA) | payer MEDICARE, OTHER, SELFPAY | PROVIDERS: PCP Internal Medicine; Visit Provider Internal Medicine | DX: I12.9 Hypertensive chronic kidney disease with stage 1 through stage 4 chronic kidney disease, or unspecified chronic kidney disease (principal); N18.30 Chronic kidney disease, stage 3 unspecified; I48.0 Paroxysmal atrial fibrillation; J44.9 Chronic obstructive pulmonary disease, unspecified; E78.5 Hyperlipidemia, unspecified; E55.9 Vitamin D deficiency, unspecified; G47.33 Obstructive sleep apnea (adult) (pediatric) | CPT/HCPCS: 96127; 99212 ==